=== PATIENT | female | born 1985 | race Caucasian/White ===

== ENCOUNTER 2016-11-29 08:25 | Emergency (ER) | payer BC ==
[2016-11-29 08:53] VITALS: BP 104/63
--- NOTE | 2016-11-29 08:56 | UC ---
Throat Pain/Nasal Jerson HPI - HPI Summary HPI Summary: 4 days hx of sore throat , nasal congestion + sinus pain and pressure , no fever, + cough - History of Current Complaint Chief Complaint: UCRespiratory Stated Complaint: SINUS SORE THROAT Time Seen by Provider: 11/29/16 08:49 Hx Obtained From: Patient Hx Last Menstrual Period: 11/08/16 ?: No Onset/Duration: Gradual Onset, Lasting Days - 4, Still Present Severity: Moderate Cough: Nonproductive Associated Signs & Symptoms: Positive: Sinus Discomfort, Nasal Discharge. Negative: Wheezing, Hoarseness, Fever, Rash - Allergies/Home Medications Allergies/Adverse Reactions: Allergies Allergy/AdvReac Type Severity Reaction Status Date / Time Bee Venom Allergy Pain, Verified 11/29/16 08:41 swelling, feeling weak Lactose Allergy Abdominal Verified 11/29/16 08:41 Pain Lactose Intolerance (GI) Allergy Abdominal Verified 11/29/16 08:41 Pain Penicillins Allergy Hives Verified 11/29/16 08:41 Home Medications: Home Medications [id number] [Mucinex Fast-Max Cold & S] 1 tab PO BID PRN [History Confirmed 11/29/16] PMH/Surg Hx/FS Hx/Imm Hx Previously Healthy: Yes Endocrine History Of: Denies: Diabetes, Thyroid Disease Cardiovascular History Of: Denies: Cardiac Disorders, Hypertension Respiratory History Of: Denies: COPD, Asthma GI/ History Of: Reports: Kidney Stones Denies: Ulcer - Surgical History Surgical History: Yes Surgery Procedure, Year, and Place: 2009. Veins removed from legs bilaterally. Essure permanant control procedure 2012 - Family History Known Family History: Positive: None, Cardiac Disease - Social History Alcohol Use: Occasionally Substance Use Type: None Smoking Status (MU): Former Smoker Type: Cigarettes Length of Time of Smoking/Using Tobacco: 2 Years Have You Smoked in the Last Year: No When Did the Patient Quit Smoking/Using Tobacco: 2004 - Immunization History Most Recent Influenza Vaccination: Not the Season Review of Systems Constitutional: Negative Skin: Negative Eyes: Negative ENT: Sore Throat, Nasal Discharge Respiratory: Cough Cardiovascular: Negative All Other Systems Reviewed And Are Negative: Yes Physical Exam Triage Information Reviewed: Yes Appearance: Well-Appearing, No Pain Distress, Well-Nourished Vital Signs: Initial Vital Signs Temp 98.1 F 11/29/16 08:45 Pulse 72 11/29/16 08:45 Resp 16 11/29/16 08:45 BP 104/63 11/29/16 08:45 Pulse Ox 100 11/29/16 08:45 Vital Signs Reviewed: Yes Eye Exam: Normal Eyes: Positive: Conjunctiva Clear ENT: Positive: Normal ENT inspection, Hearing grossly normal, Pharyngeal erythema, Nasal congestion, Nasal drainage, TMs normal Neck exam: Normal Neck: Positive: Supple, Nontender, No Lymphadenopathy Respiratory: Positive: Chest non-tender, Lungs clear, Normal breath sounds, No respiratory distress Cardiovascular Exam: Normal Cardiovascular: Positive: RRR, No Murmur, Pulses Normal Skin Exam: Normal Throat Pain/Nasal Course/Dx - Differential Dx/Diagnosis Provider Diagnoses: URI Discharge - Discharge Plan Condition: Stable Disposition: HOME Patient Education Materials: Upper Respiratory Infection (ED) Referrals: Qasim Bravo MD [Primary Care Provider] - If Needed Additional Instructions: viral illness cont. with rest, increase fluid, OTC nasal spray Flonase daily
== END 2016-11-29 08:58 | disposition home or self-care (01) ==
LOC: UCCORT 08:25
DX: J06.9 Acute upper respiratory infection, unspecified (principal); Z87.891 Personal history of nicotine dependence; Z88.0 Allergy status to penicillin
CPT/HCPCS: 99211; G0463

== ENCOUNTER 2017-01-13 09:15 | Emergency (ER) | payer BC ==
[2017-01-13 10:16] VITALS: BP 109/58
--- NOTE | 2017-01-13 10:26 | UC ---
Eye Complaint HPI - HPI Summary HPI Summary: Pt c/o bilateral eye redness, "crusty" eyes and c/o of waking this morning with "crusted eyes" this morning. - History of Current Complaint Chief Complaint: UCRespiratory Stated Complaint: BILATERAL EYE Time Seen by Provider: 01/13/17 10:02 Hx Last Menstrual Period: 12/27/16 ?: No Onset/Duration: Gradual Onset, Lasting Days Timing: Constant Severity Initially: Mild Severity Currently: Mild Location of Injury: Conjunctiva Character: Dull Aggravating Factor(s): Light Associated Signs And Symptoms: Positive: Photophobia, Drainage (Purulent) - Allergies/Home Medications Allergies/Adverse Reactions: Allergies Allergy/AdvReac Type Severity Reaction Status Date / Time Bee Venom Allergy Pain, Verified 01/13/17 10:08 swelling, feeling weak Lactose Allergy Abdominal Verified 01/13/17 10:08 Pain Lactose Intolerance (GI) Allergy Abdominal Verified 01/13/17 10:08 Pain Penicillins Allergy Hives Verified 01/13/17 10:08 Home Medications: Home Medications Dextromethorphan-Phenylephrine [Daytime Multi Symptom Col 10-5-325 mg] 2 cap PO ONCE PRN 01/13/17 [History Confirmed 01/13/17] PMH/Surg Hx/FS Hx/Imm Hx Previously Healthy: Yes Endocrine History Of: Denies: Diabetes, Thyroid Disease Cardiovascular History Of: Denies: Cardiac Disorders, Hypertension Respiratory History Of: Denies: COPD, Asthma GI/ History Of: Reports: Kidney Stones Denies: Ulcer - Surgical History Surgical History: Yes Surgery Procedure, Year, and Place: 2009. Veins removed from legs bilaterally. Essure permanant control procedure 2012 - Family History Known Family History: Positive: None, Cardiac Disease - Social History Alcohol Use: Occasionally Substance Use Type: None Smoking Status (MU): Former Smoker Type: Cigarettes Length of Time of Smoking/Using Tobacco: 2 Years Have You Smoked in the Last Year: No When Did the Patient Quit Smoking/Using Tobacco: 2004 - Immunization History Most Recent Influenza Vaccination: Not the Season Review of Systems Constitutional: Negative Skin: Negative Eyes: Drainage, Eye Redness, Photophobia ENT: Negative Respiratory: Negative Cardiovascular: Negative Gastrointestinal: Negative Genitourinary: Negative Motor: Negative Neurovascular: Negative Musculoskeletal: Negative Neurological: Negative Psychological: Negative All Other Systems Reviewed And Are Negative: Yes Physical Exam Triage Information Reviewed: Yes Appearance: Well-Appearing Vital Signs: Initial Vital Signs Temp 98.6 F 01/13/17 10:11 Pulse 65 01/13/17 10:11 Resp 16 01/13/17 10:11 BP 109/58 01/13/17 10:11 Pulse Ox 99 01/13/17 10:11 Vital Signs Reviewed: Yes Eyes: Positive: Conjunctiva Inflamed, Discharge - white Neck exam: Normal Respiratory Exam: Normal Cardiovascular Exam: Normal Musculoskeletal Exam: Normal Neurological Exam: Normal Psychological Exam: Normal Skin Exam: Normal Eye Complaint Course/Dx - Differential Dx/Diagnosis Differential Diagnosis/HQI/PQRI: Conjunctivitis Provider Diagnoses: conjunctivitis Discharge - Discharge Plan Condition: Stable Disposition: HOME Prescriptions: Polymyx/Trimethoprim OPTH* [Polytrim OPHTH*] 2 drop BOTH EYES Q3H #1 btl Patient Education Materials: Conjunctivitis (ED) Referrals: Qasim Bravo MD [Medical Doctor] - If Needed (Please follow up with your PCP or return to clinic as needed. )
== END 2017-01-13 10:42 | disposition home or self-care (01) ==
LOC: UCCORT 09:15
DX: H10.33 Unspecified acute conjunctivitis, bilateral (principal); Z88.0 Allergy status to penicillin; Z87.891 Personal history of nicotine dependence
CPT/HCPCS: 99212; G0463

== ENCOUNTER 2017-01-28 09:39 | Emergency (ER) | payer BC ==
[2017-01-28 10:13] VITALS: BP 105/57
--- NOTE | 2017-01-28 10:23 | UC ---
Bite Injury/Animal HPI - HPI Summary HPI Summary: complaint of tick embedded on her back that she noticed this morning tick there for less than 24 hours feels sore and has small rash around bite - History of Current Complaint Chief Complaint: UCSkin Stated Complaint: TICK Hx Obtained From: Patient Hx Last Menstrual Period: 01/28/17 - Allergies/Home Medications Allergies/Adverse Reactions: Allergies Allergy/AdvReac Type Severity Reaction Status Date / Time Bee Venom Allergy Pain, Verified 01/28/17 10:01 swelling, feeling weak Lactose Allergy Abdominal Verified 01/28/17 10:01 Pain Lactose Intolerance (GI) Allergy Abdominal Verified 01/28/17 10:01 Pain Penicillins Allergy Hives Verified 01/28/17 10:01 Home Medications: Home Medications Amitriptyline TAB* [Elavil TAB*] 25 mg PO BEDTIME 01/28/17 [History Confirmed ] PMH/Surg Hx/FS Hx/Imm Hx Previously Healthy: Yes Endocrine History Of: Denies: Diabetes, Thyroid Disease Cardiovascular History Of: Denies: Cardiac Disorders, Hypertension Respiratory History Of: Denies: COPD, Asthma GI/ History Of: Reports: Kidney Stones Denies: Ulcer - Surgical History Surgical History: Yes Surgery Procedure, Year, and Place: 2009. Veins removed from legs bilaterally. Essure permanant control procedure 2012 - Family History Known Family History: Positive: None, Cardiac Disease Negative: Hypertension, Diabetes - Social History Occupation: Employed Full-time Lives: With Family Alcohol Use: Occasionally Substance Use Type: None Smoking Status (MU): Former Smoker Type: Cigarettes Length of Time of Smoking/Using Tobacco: 2 Years Have You Smoked in the Last Year: No When Did the Patient Quit Smoking/Using Tobacco: 2004 - Immunization History Most Recent Influenza Vaccination: NONE Most Recent Tetanus Shot: UTD Most Recent Pneumonia Vaccination: N/A Review of Systems Constitutional: Negative Skin: Rash Eyes: Negative ENT: Negative Respiratory: Negative Cardiovascular: Negative Gastrointestinal: Negative Genitourinary: Negative Motor: Negative Neurovascular: Negative Musculoskeletal: Negative Neurological: Negative Psychological: Negative All Other Systems Reviewed And Are Negative: Yes Physical Exam Triage Information Reviewed: Yes Appearance: No Pain Distress, Well-Nourished Vital Signs: Initial Vital Signs Temp 97.9 F 01/28/17 10:03 Pulse 66 01/28/17 10:03 Resp 18 01/28/17 10:03 BP 105/57 01/28/17 10:03 Pulse Ox 100 01/28/17 10:03 Vital Signs Reviewed: Yes Eyes: Positive: Conjunctiva Clear ENT: Positive: Pharynx normal, TMs normal Neck: Positive: No Lymphadenopathy Respiratory: Positive: Lungs clear, Normal breath sounds, No respiratory distress Cardiovascular: Positive: RRR, No Murmur, Pulses Normal Abdomen Description: Positive: Nontender, Soft Bowel Sounds: Positive: Present Musculoskeletal: Positive: No Edema Neurological: Positive: Alert Psychological Exam: Normal Skin: Positive: Other - tick embedded in right side of upper back 1cm area of erythema surrounding tick Procedures - Procedure Summary Procedure Summary: tick removed with tick twister Bite Injury Course/Dx - Course Course Of Treatment: exam completed. tick removed'. refuses prophylaxis for treatment- tick there for less than 24 hours - Differential Dx/Diagnosis Provider Diagnoses: tick removal/bite Discharge - Discharge Plan Condition: Stable Disposition: HOME Patient Education Materials: Tick Bite (ED) Referrals: Orlin Weems MD [Primary Care Provider] - Additional Instructions: Please review your discharge instructions. If your symptoms do not improve please call your primary care provider or return to urgent care.
== END 2017-01-28 10:34 | disposition home or self-care (01) ==
LOC: UCCORT 09:39
DX: S20.461A Insect bite (nonvenomous) of right back wall of thorax, initial encounter (principal); W57.XXXA Bitten or stung by nonvenomous insect and other nonvenomous arthropods, initial encounter; Y93.9 Activity, unspecified; Y99.9 Unspecified external cause status; Z91.030 Bee allergy status; Z91.040 Latex allergy status; Z91.011 Allergy to milk products
CPT/HCPCS: 99212; G0463

== ENCOUNTER 2017-05-26 12:17 | Emergency (ER) | payer BC ==
[2017-05-26 12:49] VITALS: BP 106/65
--- NOTE | 2017-05-26 12:57 | UC ---
Complaint Female HPI - HPI Summary HPI Summary: Patient has had urinary frequency, dysuria and flank pain for the past 3 days, is taking azo - History Of Current Complaint Chief Complaint: UCGU Stated Complaint: URINARY COMPLAINT Time Seen by Provider: 05/26/17 12:52 Hx Obtained From: Patient Hx Last Menstrual Period: 05/24/17 ?: No Onset/Duration: Sudden Onset, Lasting Days Timing: Lasting Days Severity Initially: Mild Severity Currently: Moderate Character: Burning Aggravating Factor(s): Urination Associated Signs And Symptoms: Positive: Back Pain - Allergies/Home Medications Allergies/Adverse Reactions: Allergies Allergy/AdvReac Type Severity Reaction Status Date / Time Bee Venom Allergy Pain, Verified 05/26/17 12:50 swelling, feeling weak Lactose Allergy Abdominal Verified 05/26/17 12:50 Pain Lactose Intolerance (GI) Allergy Abdominal Verified 05/26/17 12:50 Pain Penicillins Allergy Hives Verified 05/26/17 12:50 PMH/Surg Hx/FS Hx/Imm Hx Previously Healthy: Yes - Surgical History Surgical History: Yes Surgery Procedure, Year, and Place: 2009. Veins removed from legs bilaterally. Essure permanant control procedure 2012. spinal nerve block 01/2017 - Family History Known Family History: Positive: None, Cardiac Disease Negative: Hypertension, Diabetes - Social History Alcohol Use: Occasionally Substance Use Type: None Smoking Status (MU): Former Smoker Type: Cigarettes Length of Time of Smoking/Using Tobacco: 2 Years Have You Smoked in the Last Year: No When Did the Patient Quit Smoking/Using Tobacco: 2004 - Immunization History Most Recent Influenza Vaccination: NONE Most Recent Tetanus Shot: UTD Most Recent Pneumonia Vaccination: N/A Review of Systems Constitutional: Negative Skin: Negative Eyes: Negative ENT: Negative Respiratory: Negative Cardiovascular: Negative Gastrointestinal: Abdominal Pain Genitourinary: Dysuria, Frequency, Urgency Motor: Negative Neurovascular: Negative Musculoskeletal: Negative Neurological: Negative Psychological: Negative All Other Systems Reviewed And Are Negative: Yes Physical Exam Triage Information Reviewed: Yes Appearance: Well-Nourished, Ill-Appearing, Pain Distress Vital Signs: Initial Vital Signs Temp 97.7 F 05/26/17 12:44 Pulse 70 05/26/17 12:44 Resp 14 05/26/17 12:44 BP 106/65 05/26/17 12:44 Pulse Ox 99 05/26/17 12:44 Vital Signs Reviewed: Yes Eye Exam: Normal ENT Exam: Normal Dental Exam: Normal Neck exam: Normal Respiratory Exam: Normal Cardiovascular Exam: Normal Cardiovascular: Positive: RRR, No Murmur, Pulses Normal Abdominal Exam: Normal Abdomen Description: Positive: Nontender, No Organomegaly, Soft, CVA Tenderness (R) - neg, CVA Tenderness (L) - pos Bowel Sounds: Positive: Present Musculoskeletal Exam: Normal Neurological Exam: Normal Psychological Exam: Normal Skin Exam: Normal Complaint Female Dx - Course Course Of Treatment: hx obtained, exam performed ,meds reviewed, urine culture sent, treated for UTI - Differential Dx/Diagnosis Differential Diagnosis/HQI/PQRI: Sexually Transmitted Disease, Ureteral Stone, Urinary Tract Infection Provider Diagnoses: Dysuria. flank pain Discharge - Discharge Plan Condition: Stable Disposition: HOME Prescriptions: Ciprofloxacin TAB* [Cipro 500 MG TAB*] 500 mg PO BID #14 tab Patient Education Materials: Urinary Tract Infection in Women (ED) Referrals: Orlin Weems MD [Primary Care Provider] - Additional Instructions: 1. take the medication as prescribed, get 2 doses in today 2. Increase fluid intake, 3. If no improvment in the next 24- 48 hours follow up with your PCP or at the ER
== END 2017-05-26 13:06 | disposition home or self-care (01) ==
LOC: UCCORT 12:17
DX: R30.0 Dysuria (principal); R35.0 Frequency of micturition; M54.5 Low back pain; Z88.0 Allergy status to penicillin; Z91.030 Bee allergy status; Z87.891 Personal history of nicotine dependence
CPT/HCPCS: 87077; 87086; 99212; G0463

== ENCOUNTER → 2017-07-13 20:54 | Emergency (ER) | payer BC ==
[~2017-07-13 20:54] MED LIST: Ketorolac INJ* 60 MG/2 ML VIAL ONE; Sulfamethox/Trimethoprim DS 800/160* TAB ONE
[2017-07-14 15:20] LABS: Manual Entry Verification HAN0055; UR Preg Internal Control QC Line Present
[2017-07-14 15:42] LABS: Urine Bacteria Absent (Absent)
--- NOTE | 2017-07-15 07:29 | UC ---
Progress - Progress Note Progress Note: PLEASE CALL [facility] AND SEE HOW THEY ARE DOING. HCG (-). U/A HAS WBC. IF WORSE F/ U PCP OR WE CAN CALL IN ABX.
== END | disposition home or self-care (01) ==
LOC: UCCORT 20:54
DX: N39.0 Urinary tract infection, site not specified (principal); Z32.02 Encounter for pregnancy test, result negative
CPT/HCPCS: 81003; 81015; 81025; 84702; A9270-GY; J1885

== ENCOUNTER 2017-11-26 11:39 | Emergency (ER) | payer BC ==
[2017-11-26 12:50] VITALS: BP 101/59
--- NOTE | 2017-11-26 13:10 | UC ---
Skin Complaint HPI - HPI Summary HPI Summary: PT IS C/O A RASH SINCE YESTERDAY. SHE DESCRIBES IT RED AND ITCHY. IT STARTED UNDER HER CHIN THEN SPREAD TO BODY. IT WAS WORSE AFTER SHOWERING. 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 NO COUGH, SOB OR WHEEZING. NOTES MILD NAUSEA. NO NEW FOOD, SOAP, MEDICATIONS. NO ILLNESS(ACUTE). SPRAY RIVAS YESTERDAY BUT HAS DONE THE SAME FOR YEARS. - History of Current Complaint Chief Complaint: UCRash Time Seen by Provider: 11/26/17 12:52 Stated Complaint: SKIN COMPLAINT/NAUSEA Hx Obtained From: Patient Hx Last Menstrual Period: 11/12/17 ?: No Onset/Duration: Gradual Onset Timing: Constant Current Severity: Mild Pain Intensity: 0 Location: Diffuse Character: Swelling, Pruritus, Redness Aggravating Factor(s): Showering Alleviating Factor(s): Antihistamines Associated Signs & Symptoms: Positive: Nausea. Negative: Vomiting, Fever, Cough , Wheezing, Chest Pain - Allergy/Home Medications Allergies/Adverse Reactions: Allergies Allergy/AdvReac Type Severity Reaction Status Date / Time MS Bee Venom [Bee Venom] Allergy Pain, Verified 11/26/17 12:41 swelling, feeling weak MS Lactose [Lactose] Allergy Abdominal Verified 11/26/17 12:41 Pain MS Lactose Intolerance (GI) Allergy Abdominal Verified 11/26/17 12:41 [Lactose Intolerance (GI)] Pain MS Penicillins [Penicillins] Allergy Hives Verified 11/26/17 12:41 Home Medications: Home Medications Biotin 1 mg PO DAILY 11/26/17 [History Confirmed 11/26/17] diPHENhydraMINE PO* [Benadryl PO 25 MG TAB*] 50 mg PO Q6H PRN 11/26/17 [History Confirmed 11/26/17] Review of Systems Constitutional: Negative Skin: Rash Eyes: Negative ENT: Negative Respiratory: Negative Cardiovascular: Negative Gastrointestinal: Negative Genitourinary: Negative Motor: Negative Neurovascular: Negative Musculoskeletal: Negative Neurological: Negative Psychological: Negative Is Patient Immunocompromised?: No All Other Systems Reviewed And Are Negative: Yes PMH/Surg Hx/FS Hx/Imm Hx - Additional Past Medical History Additional PMH: IBS, plus per triage GI/ History: Gastroesophageal Reflux - Surgical History Surgical History: Yes Surgery Procedure, Year, and Place: 2009. Veins removed from legs bilaterally. Essure permanant control procedure 2012. spinal nerve block 01/2017 - Family History Known Family History: Positive: None, Cardiac Disease Negative: Hypertension, Diabetes - Social History Occupation: Employed Full-time Lives: With Family Alcohol Use: Occasionally Substance Use Type: None Smoking Status (MU): Former Smoker Type: Cigarettes Length of Time of Smoking/Using Tobacco: 2 Years Have You Smoked in the Last Year: No When Did the Patient Quit Smoking/Using Tobacco: 2004 - Immunization History Most Recent Influenza Vaccination: NONE Most Recent Tetanus Shot: UTD Most Recent Pneumonia Vaccination: N/A Vaccination Up to Date: Yes Physical Exam Triage Information Reviewed: Yes Appearance: Well-Appearing Vital Signs: Initial Vital Signs Temp 98.9 F 11/26/17 12:43 Pulse 60 11/26/17 12:43 Resp 20 11/26/17 12:43 BP 101/59 11/26/17 12:43 Pulse Ox 100 11/26/17 12:43 Vital Signs Reviewed: Yes Eyes: Positive: Conjunctiva Clear ENT: Positive: Pharynx normal, TMs normal, Uvula midline. Negative: Nasal congestion Neck: Positive: Supple, Nontender, No Lymphadenopathy Respiratory: Positive: Lungs clear, Normal breath sounds, No respiratory distress Cardiovascular: Positive: RRR, No Murmur Abdomen Description: Positive: Nontender, No Organomegaly, Soft Bowel Sounds: Positive: Present Skin: Positive: Other - faint pink rash cheeks and arms. not petechial, blistering or scaly and does lynne. rest of inspection reveals rash mostly resolved post benadryl. Course/Dx - Course Course Of Treatment: rash is not petechial, blistering, scaly and it does lynne and improved with benadryl thus most c/w hives. will tx benadryl and prednisone plus close f/u. - Diagnoses Provider Diagnoses: Rash. Probable hives Discharge - Discharge Plan Condition: Stable Disposition: HOME Prescriptions: predniSONE [Prednisone] 40 mg PO DAILY 3 Days #6 tablet Patient Education Materials: Urticaria (ED), Acute Rash (ED) Forms: *Work Release Referrals: Orlin Weems MD [Primary Care Provider] - 3 Days Additional Instructions: TAKE OVER THE COUNTER BENADRYL PER LABEL NEEDED
== END 2017-11-26 13:14 | disposition home or self-care (01) ==
LOC: UCCORT 11:39
DX: R21 Rash and other nonspecific skin eruption (principal); Z87.891 Personal history of nicotine dependence
CPT/HCPCS: 99212; G0463

== ENCOUNTER 2017-12-13 17:39 | Emergency (ER) | payer BC ==
[2017-12-13 17:53] VITALS: BP 114/67
--- NOTE | 2017-12-13 18:13 | UC ---
Complaint Female HPI - HPI Summary HPI Summary: Pt c/o freuqeuncy, urgency and dysuria that began 1 week ago. Pt also c/o left side flank pain . Pt has history of pyelonephritis and frequent UTI's - History Of Current Complaint Chief Complaint: UCGU Stated Complaint: URINARY AND BACK PAIN Time Seen by Provider: 12/13/17 17:48 Hx Obtained From: Patient Hx Last Menstrual Period: 12/06/17 ?: No Onset/Duration: Sudden Onset, Lasting Days, Still Present, Worse Since - onset Timing: Constant Severity Initially: Mild Severity Currently: Moderate Pain Intensity: 4 Character: Dull, Burning Aggravating Factor(s): Urination Alleviating Factor(s): Nothing Associated Signs And Symptoms: Positive: Back Pain - Risk Factors Ectopic Risk Factor: Negative - Allergies/Home Medications Allergies/Adverse Reactions: Allergies Allergy/AdvReac Type Severity Reaction Status Date / Time bee venom protein (honey bee) Allergy Hives/Diff. Verified 12/13/17 17:50 Breathing/I tching lactose Allergy GI Upset Verified 12/13/17 17:50 Penicillins Allergy Abdominal Verified 12/13/17 17:50 Pain blackberry Allergy Hives Uncoded 12/13/17 17:50 PMH/Surg Hx/FS Hx/Imm Hx Previously Healthy: Yes GI/ History: Kidney Stones - Surgical History Surgical History: Yes Surgery Procedure, Year, and Place: 2009. Veins removed from legs bilaterally. Essure permanant control procedure 2012. spinal nerve block 01/2017 - Family History Known Family History: Positive: None, Cardiac Disease Negative: Hypertension, Diabetes - Social History Occupation: Employed Full-time Lives: With Family Alcohol Use: Occasionally Substance Use Type: None Smoking Status (MU): Former Smoker Type: Cigarettes Length of Time of Smoking/Using Tobacco: 2 Years Have You Smoked in the Last Year: No When Did the Patient Quit Smoking/Using Tobacco: 2004 - Immunization History Most Recent Influenza Vaccination: NONE Most Recent Tetanus Shot: UTD Most Recent Pneumonia Vaccination: N/A Vaccination Up to Date: Yes Review of Systems Constitutional: Fatigue Skin: Negative Eyes: Negative ENT: Negative Respiratory: Negative Cardiovascular: Negative Gastrointestinal: Abdominal Pain Genitourinary: Dysuria, Frequency, Urgency Motor: Negative Neurovascular: Negative Musculoskeletal: Negative Neurological: Negative Psychological: Negative Is Patient Immunocompromised?: No All Other Systems Reviewed And Are Negative: Yes Physical Exam Triage Information Reviewed: Yes Appearance: Well-Appearing Vital Signs: Initial Vital Signs Temp 98 F 12/13/17 17:47 Pulse 60 12/13/17 17:47 Resp 16 12/13/17 17:47 BP 114/67 12/13/17 17:47 Pulse Ox 100 12/13/17 17:47 Vital Signs Reviewed: Yes Eye Exam: Normal ENT Exam: Normal Neck exam: Normal Respiratory Exam: Normal Abdomen Description: Positive: CVA Tenderness (L) Musculoskeletal Exam: Normal Neurological Exam: Normal Psychological Exam: Normal Skin Exam: Normal Complaint Female Dx - Differential Dx/Diagnosis Differential Diagnosis/HQI/PQRI: Urinary Tract Infection, Other - kidney stone Provider Diagnoses: UTI Discharge - Discharge Plan Condition: Stable Disposition: HOME Prescriptions: Sulfamethox/Trimethoprim DS* [Bactrim DS 800/160 TAB*] 1 tab PO Q12H #10 tab Patient Education Materials: Urinary Tract Infection in Women (ED) Referrals: Kyle Fam MD [Medical Doctor] - Orlin Weems MD [Primary Care Provider] - If Needed
== END 2017-12-13 18:21 | disposition home or self-care (01) ==
LOC: UCCORT 17:39
DX: N39.0 Urinary tract infection, site not specified (principal); Z91.030 Bee allergy status; Z91.011 Allergy to milk products; Z88.0 Allergy status to penicillin; Z91.018 Allergy to other foods; Z87.891 Personal history of nicotine dependence
CPT/HCPCS: 81003; 87086; 99212; G0463

== ENCOUNTER 2018-04-07 09:37 | Emergency (ER) | payer BC ==
[2018-04-07 10:25] VITALS: BP 95/48
--- NOTE | 2018-04-07 10:36 | UC ---
Throat Pain/Nasal Jerson HPI - HPI Summary HPI Summary: Patient to the urgent care today with chief complaint of subjective fever, sore throat body aches. Began last night about 11:30 she just flown in from [facility] none of the other children or her partner are sick. - History of Current Complaint Chief Complaint: UCRespiratory Stated Complaint: FEVER/AUGUSTINE/ST Time Seen by Provider: 04/07/18 10:15 Hx Obtained From: Patient Hx Last Menstrual Period: 03/22/18 ?: No Onset/Duration: Sudden Onset, Lasting Hours - 12 Pain Intensity: 7 Pain Scale Used: 0-10 Numeric Cough: None Associated Signs & Symptoms: Positive: Sinus Discomfort, Fever - Allergies/Home Medications Allergies/Adverse Reactions: Allergies Allergy/AdvReac Type Severity Reaction Status Date / Time bee venom protein (honey bee) Allergy Hives/Diff. Verified 04/07/18 10:18 Breathing/I tching lactose Allergy GI Upset Verified 04/07/18 10:18 Penicillins Allergy Hives Verified 04/07/18 10:18 blackberry Allergy Hives Uncoded 04/07/18 10:18 Home Medications: Home Medications Ibuprofen TAB* [Advil TAB*] 800 mg PO Q6H PRN 04/07/18 [History Confirmed ] PMH/Surg Hx/FS Hx/Imm Hx Previously Healthy: Yes GI/ History: Gastroesophageal Reflux - Surgical History Surgical History: Yes Surgery Procedure, Year, and Place: 2009. Veins removed from legs bilaterally. Essure permanant control procedure 2012. spinal nerve block 01/2017 - Family History Known Family History: Positive: None, Cardiac Disease Negative: Hypertension, Diabetes - Social History Occupation: Employed Full-time Lives: With Family Alcohol Use: Occasionally Substance Use Type: None Smoking Status (MU): Former Smoker Type: Cigarettes Length of Time of Smoking/Using Tobacco: 2 Years Have You Smoked in the Last Year: No When Did the Patient Quit Smoking/Using Tobacco: 2004 - Immunization History Most Recent Influenza Vaccination: NONE Most Recent Tetanus Shot: UTD Most Recent Pneumonia Vaccination: N/A Vaccination Up to Date: Yes Review of Systems Constitutional: Fever, Chills, Fatigue Skin: Negative Eyes: Negative ENT: Sore Throat, Sinus Congestion, Sinus Pain/Tenderness Respiratory: Negative Cardiovascular: Negative Gastrointestinal: Negative Genitourinary: Negative Motor: Negative Neurovascular: Negative Musculoskeletal: Negative Neurological: Negative Psychological: Negative Is Patient Immunocompromised?: No All Other Systems Reviewed And Are Negative: Yes Physical Exam Triage Information Reviewed: Yes Appearance: Well-Nourished, Ill-Appearing - mild, Pain Distress - mild Vital Signs: Initial Vital Signs Temp 98.5 F 04/07/18 10:20 Pulse 73 04/07/18 10:20 Resp 15 04/07/18 10:20 BP 95/48 04/07/18 10:20 Pulse Ox 100 04/07/18 10:20 Vital Signs Reviewed: Yes Eye Exam: Normal Eyes: Positive: Conjunctiva Clear ENT Exam: Normal ENT: Positive: Normal ENT inspection, Hearing grossly normal, Pharyngeal erythema, Nasal congestion, TMs normal, Sinus tenderness - mild, Uvula midline. Negative: Tonsillar swelling, Tonsillar exudate, Trismus, Muffled voice, Hoarse voice, Dental tenderness Dental Exam: Normal Neck exam: Normal Neck: Positive: Supple, Nontender, No Lymphadenopathy Respiratory Exam: Normal Respiratory: Positive: Chest non-tender, Lungs clear, Normal breath sounds, No respiratory distress, No accessory muscle use Cardiovascular Exam: Normal Cardiovascular: Positive: RRR, No Murmur, Pulses Normal Musculoskeletal Exam: Normal Musculoskeletal: Positive: Strength Intact, ROM Intact, No Edema Neurological Exam: Normal Neurological: Positive: Alert, Muscle Tone Normal Psychological Exam: Normal Skin Exam: Normal Diagnostics - Laboratory Diagnostic Studies Completed/Ordered: rst (-) Throat Pain/Nasal Course/Dx - Course Assessment/Plan: tulenol, ibuprofen increase fluids follow with pcp prn - Differential Dx/Diagnosis Provider Diagnoses: viral illness Discharge - Sign-Out/Discharge Documenting (check all that apply): Discharge/Admit/Transfer - Discharge Plan Condition: Stable Disposition: HOME Patient Education Materials: Pharyngitis (ED), Fever in Adults (ED), Viral Syndrome (ED) Forms: *Work Release Referrals: Daija Campos PA [Physician Application Support] - 2 Days - Billing Disposition and Condition Condition: STABLE Disposition: Home
== END 2018-04-07 10:54 | disposition home or self-care (01) ==
LOC: UCCORT 09:37
DX: B34.9 Viral infection, unspecified (principal); Z88.0 Allergy status to penicillin; J02.9 Acute pharyngitis, unspecified; R52 Pain, unspecified; Z91.018 Allergy to other foods; Z91.011 Allergy to milk products; Z91.030 Bee allergy status; Z87.891 Personal history of nicotine dependence
CPT/HCPCS: 87651; 99211; G0463

== ENCOUNTER 2018-04-09 09:05 | Emergency (ER) | payer BC ==
[2018-04-09 09:31] VITALS: BP 124/59
--- NOTE | 2018-04-09 10:35 | UC ---
Throat Pain/Nasal Jerson HPI - HPI Summary HPI Summary: seen on 04/07 with 12 hour hx of sore throat and fever, rapid strep negative. Since then, has had progressive sore throat and dysphagia, decreased oral intake , malaise and fever. - History of Current Complaint Chief Complaint: UCGeneralIllness Stated Complaint: ST,FEVER Time Seen by Provider: 04/09/18 09:41 Hx Obtained From: Patient Hx Last Menstrual Period: 03/22/18 Onset/Duration: Sudden Onset, Lasting Days - 4 Severity: Moderate Pain Intensity: 10 Cough: None Associated Signs & Symptoms: Positive: Dysphagia, Fever - Epiglottits Risk Factors Epiglottis Risk Factors: Negative - Allergies/Home Medications Allergies/Adverse Reactions: Allergies Allergy/AdvReac Type Severity Reaction Status Date / Time bee venom protein (honey bee) Allergy Hives/Diff. Verified 04/09/18 09:31 Breathing/I tching lactose Allergy GI Upset Verified 04/09/18 09:31 Penicillins Allergy Hives Verified 04/09/18 09:31 blackberry Allergy Hives Uncoded 04/09/18 09:31 PMH/Surg Hx/FS Hx/Imm Hx Previously Healthy: Yes - Surgical History Surgical History: Yes Surgery Procedure, Year, and Place: 2009. Veins removed from legs bilaterally. Essure permanant control procedure 2012. spinal nerve block 01/2017 - Family History Known Family History: Positive: None, Cardiac Disease Negative: Hypertension, Diabetes - Social History Occupation: Employed Full-time - [employer] Alcohol Use: Occasionally Substance Use Type: None Smoking Status (MU): Former Smoker Type: Cigarettes Length of Time of Smoking/Using Tobacco: 2 Years Have You Smoked in the Last Year: No When Did the Patient Quit Smoking/Using Tobacco: 2004 - Immunization History Most Recent Influenza Vaccination: NONE Most Recent Tetanus Shot: UTD Most Recent Pneumonia Vaccination: N/A Vaccination Up to Date: Yes Review of Systems Constitutional: Fever, Fatigue Skin: Negative Eyes: Negative ENT: Sore Throat, Ear Ache Respiratory: Negative Cardiovascular: Negative Gastrointestinal: Negative Genitourinary: Negative Motor: Negative Neurovascular: Negative Musculoskeletal: Negative Neurological: Headache Psychological: Negative Is Patient Immunocompromised?: No All Other Systems Reviewed And Are Negative: Yes Physical Exam Triage Information Reviewed: Yes Appearance: Ill-Appearing - looks unwell, Pain Distress - uncomfortable Vital Signs: Initial Vital Signs Temp 100.3 F 04/09/18 09:26 Pulse 96 04/09/18 09:26 Resp 18 04/09/18 09:26 BP 124/59 04/09/18 09:26 Pulse Ox 100 04/09/18 09:26 Vital Signs Reviewed: Yes Eyes: Positive: Conjunctiva Clear ENT: Positive: Pharyngeal erythema, TMs normal, Tonsillar swelling, Tonsillar exudate - right tonsillar coated with thick purulent exudate. No evidence of abscess., Uvula midline, Other - no trismus Neck: Positive: Enlarged Nodes @ - tonsillar. No occipital, posterior cervical Respiratory: Positive: Lungs clear, Normal breath sounds Cardiovascular: Positive: RRR, No Murmur Abdomen Description: Positive: Nontender, No Organomegaly, Soft Musculoskeletal Exam: Normal Neurological Exam: Normal Neurological: Positive: Alert Psychological Exam: Normal Skin Exam: Normal Diagnostics - Laboratory Diagnostic Studies Completed/Ordered: rapid strep negative; full culture sent. Throat Pain/Nasal Course/Dx - Course Course Of Treatment: clindamycin for exudative tonsillitis. - Differential Dx/Diagnosis Differential Diagnosis/HQI/PQRI: Mononucleosis, Pharyngitis, Tonsillitis Provider Diagnoses: exudative tonsillitis Discharge - Sign-Out/Discharge Documenting (check all that apply): Discharge/Admit/Transfer - Discharge Plan Condition: Stable Disposition: HOME Prescriptions: Clindamycin Cap(NF) [Clindamycin Cap 300 mg Cap(NF)] 300 mg PO QID #28 cap Referrals: Daija Campos PA [Primary Care Provider] - - Billing Disposition and Condition Condition: STABLE Disposition: Home
[2018-04-09] MEDS ORDERED: predniSONE TAB* 20 MG PO ONE (10:48)
== END 2018-04-09 11:02 | disposition home or self-care (01) ==
LOC: UCCORT 09:05
DX: J03.90 Acute tonsillitis, unspecified (principal); Z88.0 Allergy status to penicillin; Z87.891 Personal history of nicotine dependence
CPT/HCPCS: 87070; 87651; 96372; 99212; G0463; J7512

== ENCOUNTER 2019-03-06 12:15 | Emergency (ER) | payer BC ==
--- OUTSIDE RECORDS SUMMARY | 2019-03-06 13:56 | XMS REPORT | Continuity of Care Document ---
:1985 External Reference #:[id number] Author Name Qasim Bravo M.D. Address [address] [facility] [address] [place] [address] Care Team Providers Name Role Phone HCP given Primary Care Physician Unavailable Payers Date Identification Numbers Payment Provider Subscriber Effective: Policy Number: [id number] Talat Ramon Marinelli 2012 Ind/Ppo/Hmo/Pos PayID: [id number] [address] [address] [place] [address] Problems Active Problems Provider Date Herpes simplex without complication Orlin Weems M.D. 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, 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 Hand Dominance Right-handed Tobacco Use Start: Unknown Tobacco Of Any Kind Denies Use ETOH Use Rarely consumes alcohol Tobacco Use Start: Unknown Patient has never smoked Smoking Status Reviewed: 05/22/18 Patient has never smoked Exercise Type/Frequency Exercises regularly Sun Exposure Uses sunscreen Seat Belt/Car Seat always uses seat belt Guns in Home Yes, Locked Up Smoke Alarms Yes smoke alarm Currently Active Patient is currently sexually active Contraceptive Methods 06/2013 Tubal Blockage Procedure Age 1st [place] 17 Years Old Allergies, Adverse Reactions, Alerts Active Allergies Reaction Severity Comments Date Penicillins hives 09/20/2011 Bee Sting hives 12/08/2015 Inactive Allergies NKDA 08/27/2011 Medications Active Medications SIG Qnty Indications Ordering Date Provider Biotin 2000mcg daily Unknown 02/09/2019 Valacyclovir HCL 2 tabs by mouth x 7 90tabs B00.9 Cheo Linn, 2017 days to treat cold D.O. 500mg Tablets sore outbreak, 1 tab po qd for suppression of cold sores Epipen 2-Louis administer 0.3 2units Z91.030 Silcotroy, 04/07/2013 milliliters Cordell Tripp 0.3mg/0.3ML intramuscularly one Solution time (dispense 2-louis Auto-Inject for each location, e.g. home/carry/other) may repeat one T78.40xA Lysine daily for prevention B00.9 Orlin Weems, 09/18/2011 1000mg Tablets cold sore MJudi Vitamin D take 2 tablets by mouth otc Unknown 400Unit once a day Tablets History Medications Cephalexin 1 tab by mouth 30tabs T22.012A Shelly, 01/01/2019 - 500mg 3x/day x10 days Cordell Tripp 02/09/2019 Tablets Ibuprofen 1 by mouth three Silcoff, 12/01/2018 - 600mg times daily for Cordell Tripp 02/09/2019 Tablets pain. Ibuprofen as needed Unknown 09/01/2018 - 200mg 12/01/2018 Tablets Metronidazole 1 applicatorful 70gm N76.0 Sil[place]roy, 07/23/2017 - 0.75% every night at Cordell Tripp 07/28/2017 Gel bedtime x 5 days Ciprofloxacin HCL 1 twice a day x 5 10tabs R30.0 [place]roy, 07/23/2017 - days for uti Cordell Tripp 07/28/2017 250mg Tablets Omeprazole Take 1 Capsule by Unknown 06/18/2017 - 40mg mouth daily 11/30/[address] Guajardo K58.1 Indiana Stewart, 01/31/2017 - 72mcg PA 05/21/2018 Capsules Diclofenac Sodium apply to affected Unknown 12/26/2016 - 1% area qid/prn 01/30/2017 Gel Imitrex take 1 tablet by 14tabs G43.109 [facility], 12/08/2015 - 50mg Tablets mouth one time for Aziza Grider 01/31/2017 migraine headache may repeat in 2 hours max 3x/week Magnesium Oxide 2 at night for 180tabs G43.109 [facility], 12/08/2015 - prevention of Aziza Grider 07/22/2017 400(240Mg) mg headaches. Tablets Fish Oil 1 po daily Unknown 12/07/2015 - 1000mg 01/30/2017 Capsules Linzess 1 po daily Unknown 11/18/2015 - 145mcg 01/30/2017 Capsules Miralax give 17gm in 8 Unknown 12/20/2014 - 3350NF Powder ounces of water by 12/07/2015 mouth tid then bid per Ciprofloxacin HCL 1 by mouth twice a 6tabs 595.0 Shelly, 09/08/2014 - day for 3 days Cordell Tripp 10/15/2014 500mg Tablets Ciprofloxacin HCL 1 tab twice a day 14tabs 595.0 Temitope, 09/03/2014 - for 7 days Aziza Grider 09/08/2014 250mg Tablets Mupirocin apply twice a day 22gm 704.8 [facility], 06/03/2014 - 2% Ointment Aziza Grider 07/04/2014 Fluticasone 2 sprays to both 1bottle 461.0 Shelly, 09/18/2013 - Propionate nostrils once daily Cordell Tripp 06/02/2014 50mcg/Act Suspension Clarithromycin 1 tab bid x 10 days 20tabs 461.0 Shelly, 09/18/2013 - 500mg Cordell Tripp 06/02/2014 Tablets Omeprazole [address] Nunes 07/14/2013 - 40mg Lilli 01/30/[address] Federico Bravo, 06/09/2013 - Chewtabs Cordell Tripp 09/18/2013 Prednisone TK 2 TS bid For 3 Unknown 04/07/2013 - 10mg Days 1 bid For 3 06/09/2013 Tablets Days 1 qd For 3 Days Then 1 T qod Nuvaring inserted pv, leave 3units Unknown 01/13/[address] for 3 06/09/2013 0.12-0.015mg/24HR consecutive weeks, Ring then remove for 1 wk Famciclovir 3 Tabs By Mouth AT 18tabs B00.9 Temitope, 09/18/2012 - 500mg The First Sign Of Scarlet Grider D.O. 05/22/2018 Tablets Cold Sore Sulfamethoxazole/Tri 1 po bid 20tabs 461.0 Orlin Cordero 09/18/2012 - methoprim KATE Weems M.D. 09/28/2012 800-160mg Tablets Macrobid 1 po bid x 7 days 14caps Unknown 09/16/2012 - 100mg 01/06/2013 Capsules Nexium 1 po qd for acid 30caps 530.81 Silcotroy, 08/24/2011 - 40mg Capsules reflux Cordell Tripp 09/16/2012 Amitriptyline HCL 1 by mouth before 100tabs Unknown 08/23/2011 - bed to start; inc 11/30/2018 10mg Tablets by 1 pill every week as needed to a max of 5 pills/night; for sleep, foot pain Zantac 150 Maximum using otc as Shelly, 08/10/2011 - Strength camila Tripp M.D. 08/13/2011 150mg Tablets Zantac 1 po bid 530.81 Kellecotroy, 08/10/2011 - 150mg Tablets Cordell Tripp 06/09/2013 Calcium 1 po twice weekly Unknown - 500mg Tablets 01/30/2017 Vitamin B12 1 po daily otc Unknown - 100mcg 01/30/2017 Tablets Probiotic 1 po daily OTC Unknown - Capsules 12/07/2015 Immunizations CPT Code Status Date Vaccine Lot # [id number] Given 08/07/2017 Influenza Virus Vaccine, Quadrivalent, Split, [id number] Preservative Free [id number] Given 04/15/2013 Adacel or Boostrix, TDaP [id number] Vital Signs Date Vital Result Comment 02/10/2019 2:19pm BP Systolic 102 mmHg BP Diastolic 68 mmHg Height 67.25 inches 5'7.25" Weight 191.00 lb BMI (Body Mass Index) 29.7 kg/m2 01/01/2019 3:04pm BP Systolic 102 mmHg BP Diastolic 70 mmHg Weight 190.00 lb w/shoes 12/01/2018 9:25am BP Systolic 110 mmHg BP Diastolic 68 mmHg Weight 190.00 lb with boots 05/22/2018 3:22pm BP Systolic 110 mmHg BP Diastolic 68 mmHg Height 67.5 inches 5'7.50" with sandals Weight 191.00 lb with sandals BMI (Body Mass Index) 29.5 kg/m2 08/07/2017 4:02pm BP Systolic 100 mmHg BP Diastolic 68 mmHg 07/23/2017 9:09am BP Systolic 106 mmHg BP Diastolic 64 mmHg Body Temperature 97.8 F Weight 189.00 lb w/boots 01/31/2017 10:05am BP Systolic 98 mmHg BP Diastolic 62 mmHg Height 67 inches 5'7" Weight 188.00 lb BMI (Body Mass Index) 29.4 kg/m2 12/08/2015 10:27am BP Systolic 110 mmHg BP Diastolic 60 mmHg Height 67 inches 5'7" Weight 180.00 lb BMI (Body Mass Index) 28.2 kg/m2 Last Menstrual Period [id number] 09/03/2014 11:24am BP Systolic 118 mmHg BP Diastolic 60 mmHg Body Temperature 97.4 F Height 67 inches 5'7" Weight 188.00 lb BMI (Body Mass Index) 29.4 kg/m2 06/03/2014 2:48pm BP Systolic 104 mmHg BP Diastolic 62 mmHg Body Temperature 97.7 F Weight 182.00 lb 09/18/2013 11:03am BP Systolic 106 mmHg BP Diastolic 62 mmHg Heart Rate 50 /min Body Temperature 97.7 F Weight 166.00 lb per pt 06/22/2013 11:58am BP Systolic 109 mmHg BP Diastolic 51 mmHg Heart Rate 76 /min Body Temperature 98.7 F Weight 173.00 lb 04/15/2013 1:51pm BP Systolic 119 mmHg BP Diastolic 69 mmHg Heart Rate 64 /min Height 67.50 inches 5'7.50" Weight 169.00 lb BMI (Body Mass Index) 26.1 kg/m2 01/29/2013 1:55pm BP Systolic 100 mmHg BP Diastolic 58 mmHg Heart Rate 80 /min Respiratory Rate 16 /min Body Temperature 97.6 F Weight 170.00 lb 09/18/2012 8:58am BP Systolic 100 mmHg BP Diastolic 62 mmHg Body Temperature 98.0 F Height 67 inches 5'7" Weight 170.00 lb BMI (Body Mass Index) 26.6 kg/m2 Last Menstrual Period 0 08/27/2011 10:56am BP Systolic 95 mmHg BP Diastolic 45 mmHg Heart Rate 68 /min Weight 175.00 lb 08/13/2011 9:49am BP Systolic 110 mmHg BP Diastolic 50 mmHg Height 67 inches 5'7" Weight 178.00 lb BMI (Body Mass Index) 27.9 kg/m2 Last Menstrual Period 0 Results Test Date Facility Test Result H/L Range Note Fractionated Estrogens 02/19/2019 [facility] Estrone (E1) 98 pg/mL 5 [phone] Estradiol (E2) 131 pg/mL 2 CBC Auto Diff 02/10/2019 [facility] White Blood Count 5.0 10^3/uL N 3.5-10.8 3 [phone] Red Blood Count 3.93 10^6/uL N 3.70-4.87 Hemoglobin 13.3 g/dL N 12.0-16.0 Hematocrit 39 % N 35-47 Mean Corpuscular Volume 98 fL High 80-97 Mean Corpuscular Hemoglobin 34 pg High 27-31 Mean Corpuscular HGB Conc 34 g/dL N 31-36 Red Cell Distribution Width 12 % N 10.5-15 Platelet Count 296 10^3/uL N 150-450 Mean Platelet Volume 8.1 fL N 7.4-10.4 Abs Neutrophils 2.9 10^3/uL N 1.5-7.7 Abs Lymphocytes 1.4 10^3/uL N 1.0-4.8 Abs Monocytes 0.4 10^3/uL N 0-0.8 Abs Eosinophils 0.1 10^3/uL N 0-0.6 Abs Basophils 0.1 10^3/uL N 0-0.2 Abs Nucleated RBC 0.0 10^3/uL Granulocyte % 59.0 % Lymphocyte % 28.1 % Monocyte % 8.7 % Eosinophil % 3.0 % Basophil % 1.2 % Nucleated Red Blood Cells % 0.0 Laboratory test finding 02/10/2019 [facility] Cortisol 6.19 g/dL 4 [phone] Erythrocyte Sed Rate 2 mm/Hr N 0-19 TSH (Thyroid Stim Horm) 1.19 mcIU/mL N 0.34-5.60 Vitamin B12 268 pg/mL N 180-914 5 FSH (Follicle Stim Hormone) 5.1 mIU/mL 6 LH (Lutenizing Hormone) 7.9 mIU/mL 7 Comp Metabolic Panel 02/10/2019 [facility] Sodium 141 mmol/L N 135- 145 [phone] Potassium 4.6 mmol/L N 3.5-5.0 Chloride 106 mmol/L N 101-111 Co2 Carbon Dioxide 25 mmol/L N 22-32 Anion Gap 10 mmol/L N 2-11 Glucose 87 mg/dL N 70-100 Blood Urea Nitrogen 15 mg/dL N 6-24 Creatinine 0.70 mg/dL N 0.51-0.95 BUN/Creatinine Ratio 21.4 High 8-20 Calcium 9.6 mg/dL N 8.6-10.3 Total Protein 6.9 g/dL N 6.4-8.9 Albumin 4.7 g/dL N 3.2-5.2 Globulin 2.2 g/dL N 2-4 Albumin/Globulin Ratio 2.1 N 1-3 Total Bilirubin 0.40 mg/dL N 0.2-1.0 Alkaline Phosphatase 50 U/L N 34-104 Alt 11 U/L N 7-52 Ast 15 U/L N 13-39 Egfr Non- 96.4 >60 Egfr 116.6 >60 8 Testosterone Free 02/10/2019 [facility] Free Testosterone 0.32 ng/dL 0.06-1.03 9 & Total [phone] Testosterone 19 ng/dL 8-60 10 Laboratory test 02/10/2019 [facility] Androstenedione 77 ng/dL 30- 200 11 finding [phone] Level Laboratory test 06/04/2018 [facility] TSH (Thyroid Stim 1.82 N 0.34- 5.60 finding [phone] Horm) mcIU/mL Free T4 (Free Thyroxine) 0.97 ng/dL N 0.61-1.12 Prolactin 11.0 ng/mL N 1.0-25.0 Comp Metabolic Panel 05/22/2018 [facility] Sodium 138 mmol/L N 135- 145 [phone] Potassium 4.5 mmol/L N 3.5-5.0 Chloride 105 mmol/L N 101-111 Co2 Carbon Dioxide 27 mmol/L N 22-32 Anion Gap 6 mmol/L N 2-11 Glucose 79 mg/dL N 70-100 Blood Urea Nitrogen 11 mg/dL N 6-24 Creatinine 0.76 mg/dL N 0.51-0.95 BUN/Creatinine Ratio 14.5 N 8-20 Calcium 9.3 mg/dL N 8.6-10.3 Total Protein 6.8 g/dL N 6.4-8.9 Albumin 4.3 g/dL N 3.2-5.2 Globulin 2.5 g/dL N 2-4 Albumin/Globulin Ratio 1.7 N 1-3 Total Bilirubin 0.80 mg/dL N 0.2-1.0 Alkaline Phosphatase 53 U/L N 34-104 Alt 14 U/L N 7-52 Ast 20 U/L N 13-39 Egfr Non- 88.2 >60 Egfr 106.7 >60 12 CBC Auto Diff 05/22/2018 [facility] White Blood Count 6.5 10^3/uL N 3.5-10.8 [phone] Red Blood Count 4.22 10^6/uL N 4.00-5.40 Hemoglobin 13.4 g/dL N 12.0-16.0 Hematocrit 39 % N 35-47 Mean Corpuscular Volume 93 fL N 80-97 Mean Corpuscular Hemoglobin 32 pg High 27-31 Mean Corpuscular HGB Conc 34 g/dL N 31-36 Red Cell Distribution Width 13 % N 10.5-15 Platelet Count 285 10^3/uL N 150-450 Mean Platelet Volume 8.8 um3 N 7.4-10.4 Abs Neutrophils 3.7 10^3/uL N 1.5-7.7 Abs Lymphocytes 2.1 10^3/uL N 1.0-4.8 Abs Monocytes 0.5 10^3/uL N 0-0.8 Abs Eosinophils 0.1 10^3/uL N 0-0.6 Abs Basophils 0.1 10^3/uL N 0-0.2 Abs Nucleated RBC 0 10^3/uL Granulocyte % 57.2 % N 38-83 Lymphocyte % 33.0 % N 25-47 Monocyte % 7.3 % High 0-7 Eosinophil % 1.7 % N 0-6 Basophil % 0.8 % N 0-2 Nucleated Red Blood Cells % 0 Urinalysis Profile 05/22/2018 [facility] Urine Color Yellow [phone] Urine Appearance Clear Urine Specific [place] 1.005 Low 1.010-1.030 Urine pH 6.0 N 5-9 Urine Urobilinogen Negative Negative Urine Ketones Negative Negative Urine Protein Negative Negative Urine Leukocytes Negative Negative Urine Blood Negative Negative Urine Nitrite Negative Negative Urine Bilirubin Negative Negative Urine Glucose Negative Negative Laboratory 04/09/2018 [facility] Rapid Strep Negative Negative 13 test finding [phone] Molecular Laboratory 04/09/2018 [facility] Culture Throat SEE RESULT 14, test finding [phone] BELOW 15 Laboratory 12/13/2017 [facility] Urine Culture And SEE RESULT 16, test finding [phone] Sensitivities BELOW 17 Poc Urinalysis 12/13/2017 [facility] Poc Glucose, Negative Negative [phone] Urine Poc Bilirubin, Urine Negative Negative Poc Ketone, Urine Negative Negative Poc Specific [place], Urine 1.010 N 1.010-1.030 Poc Blood, Urine Negative Negative Poc pH, Urine 6.5 N 5-9 Poc Protein, Urine Negative Negative Poc Urobilinogen, Urine 0.2 Negative Poc Nitrite, Urine Negative Negative Poc Leukocytes, Urine Trace Abnormal Negative Poc Color, Urine Yellow Poc Clarity, Urine Clear 18 Ua Inhouse 08/07/2017 In House Ua Glucose - 19 Ua Bilirubin - Ua Ketones - Ua Specific [place] 1.005 Ua Blood - Ua PH 5.0 Ua Protein - Ua Urobilinogen - Ua Nitrite - Ua Leukocytes - Culture Urine Inhouse 08/07/2017 In House Colonies negative Ua Inhouse 07/23/2017 In House Ua Glucose - 20 Ua Bilirubin - Ua Ketones - Ua Specific [place] 1.025 Ua Blood 3+ Ua PH 6.0 Ua Protein tr Ua Urobilinogen - Ua Nitrite - Ua Leukocytes tr Culture Urine 07/23/2017 In House Colonies no growth Inhouse Laboratory test 07/13/2017 [facility] (HCG) Negative N Negative 21 finding [phone] Urine Urinalysis Profile 07/13/2017 [facility] Urine Color Elizabeth N 22 [phone] Urine Appearance Cloudy N Urine Specific [place] 1.014 N 1.010-1.030 Urine pH (SEE NOTE) N 5-9 23 Urine Urobilinogen (SEE NOTE) N Negative 24 Urine Ketones (SEE NOTE) N Negative 25 Urine Protein (SEE NOTE) N Negative 26 Urine Leukocytes (SEE NOTE) N Negative 27 Urine Blood (SEE NOTE) N Negative 28 * (SEE NOTE) N Negative 29 Urine Nitrite (SEE NOTE) N Negative 30 Urine Bilirubin (SEE NOTE) N Negative 31 Urine Glucose (SEE NOTE) N Negative 32 Urine White Blood Cell 3+(>20/hpf) Abnormal Absent Urine Red Blood Cell Trace(0-2/hpf) N Absent Urine Bacteria Absent N Absent Urine Squamous Epithelial Cell Present Abnormal Absent Laboratory test 05/26/2017 [facility] Urine Culture And SEE RESULT 33, 34 finding [phone] Sensitivities BELOW Celiac Panel 02/04/2017 [facility] Tissue <1.2 U/mL N 35 [phone] Transglutaminase IgA Ab Immunoglobulin A 114 mg/dL N 61 - 356 Celiac Interpretation See Comment N 36 Laboratory test finding 02/04/2017 [facility] Amylase 54 U/L N 29- 103 [phone] Lipase 18 U/L N 11.0-82.0 Vitamin D Total 25(Oh) 46.4 ng/mL N 30-50 Vitamin B12 348 pg/mL N 180-914 37 Comp Metabolic Panel 02/04/2017 [facility] Sodium 138 mmol/L N 133- 145 [phone] Potassium 3.9 mmol/L N 3.5-5.0 Chloride 105 mmol/L N 101-111 Co2 Carbon Dioxide 26 mmol/L N 22-32 Anion Gap 7 mmol/L N 2-11 Glucose 90 mg/dL N 70-100 Blood Urea Nitrogen 10 mg/dL N 6-24 Creatinine 0.78 mg/dL N 0.51-0.95 BUN/Creatinine Ratio 12.8 N 8-20 Calcium 9.3 mg/dL N 8.6-10.3 Total Protein 6.4 g/dL N 6.4-8.9 Albumin 4.2 g/dL N 3.2-5.2 Globulin 2.2 g/dL N 2-4 Albumin/Globulin Ratio 1.9 N 1-3 Total Bilirubin 0.80 mg/dL N 0.2-1.0 Alkaline Phosphatase 40 U/L N 34-104 Alt 13 U/L N 7-52 Ast 19 U/L N 13-39 Egfr Non- 86.1 N >60 Egfr 110.8 N >60 38 Laboratory test 02/04/2017 [facility] Gastrin 80 pg/mL N 39 finding [phone] Laboratory test 08/13/2016 [facility] Urine Culture And SEE RESULT 40, 41 finding [phone] Sensitivities BELOW Ureaplasma 08/13/2016 [facility] Ureaplasma Source URINE N [phone] Ureaplasma urealyticum PCR Negative N 42 Ureaplasma parvum PCR Negative N 43 Mycoplasma Hominis PCR 08/13/2016 [facility] Mycoplasma hominis URINE N [phone] Source Mycoplasma hominis Result Negative N 44 Laboratory 05/22/2016 [facility] Urine Culture And SEE RESULT 45, 46 test finding [phone] Sensitivities BELOW Laboratory 12/20/2015 [facility] Gardnerella/Yeast SEE RESULT 47 test finding [phone] : Vaginal Dna BELOW Laboratory 12/20/2015 [facility] Urine Glucose Negative N Negative test finding [phone]/dL Urine Culture And Sensitivities SEE RESULT BELOW 48 Laboratory test 12/09/2015 [facility] Erythrocyte Sed Rate 8 mm/Hr N 0-14 49 finding [phone] Hepatitis C Antibody Nonreactive N Nonreactive 50 C Reactive Protein < 1.00 mg/L N < 5.00 51 HIV 1/2 AB 12/09/2015 [facility] HIV 1 2 Antibody Nonreactive N Nonreactive 52 Evaluation [phone] Celiac Panel 12/09/2015 [facility] Tissue <1.2 U/mL N 53 [phone] Transglutaminase IgA Ab Immunoglobulin A 119 mg/dL N 61 - 356 Celiac Interpretation See Comment N 54 Celiac Hla DQ1/DQ2 12/09/2015 [facility] Hla-Dqa1 SEE BELOW N 55 [phone] Hla-DQB1 SEE BELOW N 56 Celiac Gene Pairs Present? No N Celiac Gene Interpretation See Comment N 57 Laboratory test finding 12/09/2015 [facility] Vitamin B12 524 pg/mL N 180-914 58 [phone] Vitamin D Total 25(Oh) 44.4 ng/mL N 30-50 59 Lipid Profile (Trig/Chol/HDL) 12/09/2015 [facility] Triglycerides 71 mg /dL N 60 [phone] Cholesterol 195 mg/dL N 61 HDL Cholesterol 59.5 mg/dL N 62 LDL Cholesterol 121 mg/dL N 63 Laboratory test 12/09/2015 [facility] TSH (Thyroid 1.49 ?IU/mL N 0.34 -5.60 64 finding [phone] Stim Horm) Comp Metabolic 12/09/2015 [facility] Sodium 138 mmol/L N 133-145 Panel [phone] Potassium 4.1 mmol/L N 3.5-5.0 Chloride 103 mmol/L N 101-111 Co2 Carbon Dioxide 28 mmol/L N 22-32 Anion Gap 7 mmol/L N 2-11 Glucose 85 mg/dL N 70-100 Blood Urea Nitrogen 10 mg/dL N 6-24 Creatinine 0.73 mg/dL N 0.51-0.95 BUN/Creatinine Ratio 13.7 N 8-20 Calcium 9.8 mg/dL N 8.6-10.3 Total Protein 6.7 g/dL N 6.4-8.9 Albumin 4.6 g/dL N 3.2-5.2 Globulin 2.1 g/dL N 2-4 Albumin/Globulin Ratio 2.2 N 1-3 Total Bilirubin 0.70 mg/dL N 0.2-1.0 Alkaline Phosphatase 43 U/L N 34-104 Alt 9 U/L N 7-52 Ast 14 U/L N 13-39 Egfr Non- 93.6 N >60 Egfr 120.4 N >60 65 CBC Auto Diff 12/09/2015 [facility] White Blood Count 3.7 10^3/uL N 3.5-10.8 [phone] Red Blood Count 4.12 10^6/uL N 4.0-5.4 Hemoglobin 13.1 g/dL N 12.0-16.0 Hematocrit 38 % N 35-47 Mean Corpuscular Volume 93 fL N 80-97 Mean Corpuscular Hemoglobin 32 pg High 27-31 Mean Corpuscular HGB Conc 34 g/dL N 31-36 Red Cell Distribution Width 13 % N 10.5-15 Platelet Count 249 10^3/uL N 150-450 Mean Platelet Volume 9 um3 N 7.4-10.4 Abs Neutrophils 2.0 10^3/uL N 1.5-7.7 Abs Lymphocytes 1.4 10^3/uL N 1.0-4.8 Abs Monocytes 0.2 10^3/uL N 0-0.8 Abs Eosinophils 0.1 10^3/uL N 0-0.6 Abs Basophils 0 10^3/uL N 0-0.2 Abs Nucleated RBC 0 10^3/uL N Granulocyte % 52.7 % N 38-83 Lymphocyte % 37.6 % N 25-47 Monocyte % 5.9 % N 1-9 Eosinophil % 2.5 % N 0-6 Basophil % 1.3 % N 0-2 Nucleated Red Blood Cells % 0.1 N Laboratory test 07/28/2015 [facility] Urine Culture And SEE RESULT 66 finding [phone] Sensitivities BELOW Urinalysis 09/10/2014 [facility] Urine Color Straw N [phone] Urine Appearance Clear N Urine Specific [place] 1.005 Low 1.010-1.030 Urine pH 6.0 N 5-9 Urine Urobilinogen Negative N Negative Urine Ketones Negative N Negative Urine Protein Negative N Negative Urine Leukocytes Negative N Negative Urine Blood Negative N Negative Urine Nitrite Negative N Negative Urine Bilirubin Negative N Negative Urine Glucose Negative N Negative Culture Urine And Sens 09/10/2014 [facility] Urine Culture (SEE NOTE) 67 [phone] Culture Urine Inhouse 09/03/2014 In House Colonies 10/6 Urine Micro Inhouse 09/03/2014 In House Ua WBC TNTC Ua RBC - Ua Casts - Ua Epi 2-4 Ua Other many bacteria WBC clumps Ua Glucose - Ua Bilirubin - Ua Ketones - Ua Specific [place] 1.005 Ua Blood - Ua PH 6.0 Ua Protein - Ua Urobilinogen - Ua Nitrite + Ua Leukocytes 2+ Urine Culture And 02/10/2014 [facility] Urine (SEE NOTE) 68 Sensitivities [phone] Culture Urine Culture And 10/01/2013 [facility] Urine (SEE NOTE) 69 Sensitivities [phone] Culture Laboratory test 08/05/2013 [facility]. ThinPrep See Note 70 finding LABORATORY Pap: [phone] Cervix/Endo cx Laboratory test 08/05/2013 [facility] HPV High Positive High Negative 71 finding LABORATORY Risk [phone] Laboratory test 06/15/2013 [facility] HCG, Quant < 1.0 72 finding LABORATORY mIU/mL [phone] Laboratory test 01/29/2013 In House Culture neg finding Throat Rapid Screen Culture Throat neg Laboratory test 08/05/2012 [facility] Blood Urea 7 mg/dL 6-24 finding [phone] Nitrogen Creatinine 08/05/2012 [facility] Creatinine 0.90 mg/dL 0.50-1.40 [phone] Egfr Non- 75.7 >60 Egfr 97.3 >60 73 Creatinine Clearance 08/05/2012 [facility] Urine Random 96.8 mg/dL [phone] Creatinine Creatinine 0.8 mg/dL 0.5-1.4 Creatinine Clearance 209 mL/min High 80-125 Urine Collection Time 24 Urine Total Volume 2450 ML Total Protein 24HR 08/05/2012 [facility] Urine Random Total 5 mg/dL Urine [phone] Protein Urine Total Protein/24HR 122 MG/24HR 0-165 Laboratory test 04/19/2012 [facility] Urine Culture See Note 74 finding LABORATORY [phone] Comprehensive 04/18/2012 [facility] Glucose 93 mg/dL 76- 115 Metabolic Panel LABORATORY [phone] BUN 11 mg/dL 5-23 Creatinine 0.8 mg/dL 0.5-1.4 Glom Filtration Rate, Estimate >60 mL/min >60 If >60 mL/min >60 75 BUN/Creat 13.7 ratio Sodium 142 mmol/L 136-145 Potassium 4.1 mmol/L 3.5-5.1 Chloride 106 mmol/L 98-107 Carbon Dioxide 25 mEq/L 18-29 Anion Gap 15 mEq/L 8-16 Calcium 8.8 mg/dL 8.5-10.1 Total Protein 6.6 g/dL 6.3-8.0 Albumin 3.7 g/dL 3.5-5.0 Globulin 2.9 g/dL 1.9-4.3 Alb/Glob 1.3 ratio Bilirubin,Total 0.7 mg/dL 0.2-1.2 Sgot/Ast 12 U/L Low 16-40 SGPT/Alt 18 U/L Low 30-65 Alkaline Phosphatase 42 U/L Low 50-136 Laboratory test 04/18/2012 [facility] Lipase 183 U/L 28- 380 finding LABORATORY [phone] CBS W/Automated 04/18/2012 [facility] White Blood 6.1 K/uL 3.1-10.7 Diff LABORATORY Count [phone] Red Blood Count 3.82 M/uL Low 3.90-5.40 Hemoglobin 12.1 gm/dL 11.6-15.8 Hematocrit 36.1 % 36.0-46.1 Mean Cell Volume 94.5 fl 80.9-99.0 Mean Corpuscular HGB 31.7 pg 25.9-32.7 Mean Corpuscular HGB Conc 33.5 g/dL 30.8-34.3 Platelet Count 240 K/uL 155-360 Red Cell Distri Width SD 41.9 fl 3-47 Red Cell Distri Width %CV 12.5 % 11.7-14.4 Mean Platelet Volume 9.9 fL 8.9-12.4 Neut% 50.1 % 40.4-72.8 Lymph % 39.8 % 17.0-46.1 [place] % 7.5 % 4.3-13.2 Eo% 1.8 % 0.0-6.6 Bas% 0.8 % 0.0-1.1 Neut# 3.05 K/uL 1.0-7.0 Lymph # 2.43 K/uL 0.8-3.4 [place] # 0.46 K/uL 0.3-0.9 Eos # 0.11 K/uL 0.0-0.5 Baso # 0.05 K/uL 0.0-0.1 Laboratory 04/18/2012 [facility] Urine HCG POSITIVE High Negative test finding LABORATORY (Qualitative) [phone] Urine Screen See Note 76 Laboratory test 04/18/2012 [facility] HCG Serum, POSITIVE High finding LABORATORY Qualitative [phone] Urinalysis With 04/18/2012 [facility] Urine Color YELLOW Yellow Microscopic LABORATORY [phone] Urine Clarity CLEAR Clear Urine Glucose - Dipstick NEGATIVE mg/dL Negative Urine Bilirubin - Dipstick NEGATIVE Negative Urine Ketone NEGATIVE mg/dL Negative Urine Specific [place] <=1.005 Low 1.010-1.030 Urine Blood SMALL High Negative Urine PH 7.5 6.5-7.5 Urine Protein - Dipstick NEGATIVE mg/dL Negative Urine Urobilinogen - Dipstick 0.2 E.U./dL 0.2-1.0 Urine Nitrite - Dipstick NEGATIVE Negative Urine Leuk Esterase NEGATIVE Negative Urine RBC 0-2 rbc/hpf 0-7 Urine WBC 0-2 wbc/hpf 0-7 Urine Epithelial Cells MODERATE NONESEEN 77 Urine Bacteria FEW NONESEEN Basic Metabolic Panel 10/31/2011 [facility] Sodium 133 mmol/L Low 135 -145 [phone] Potassium 3.5 mmol/L 3.5-5.0 Chloride 100 mmol/L Low 101-111 Co2 (Carbon Dioxide) 24.0 mmol/L 22-32 Anion Gap 9.0 mmol/L 2-11 78 Glucose 107 mg/dL High 70-100 BUN 7 mg/dL 6-24 Creatinine 0.8 mg/dL 0.50-1.40 One Over Creatinine 1.25 BUN/Creatinine Ratio 8.8 8-20 Calcium 8.5 mg/dL 8.1-9.9 eGFR Non- 86.7 > 60 eGFR 111.5 > 60 79 Laboratory test finding 10/31/2011 [facility] TSH 1.23 MIU/ML 0.34- 5.60 [phone] C Reactive Protein 25.3 mg/dL High Less Than 0.5 Mita (Antinuclear 10/31/2011 [facility] Antinuclear AB NEGATIVE Negative Antibodies) [phone] Laboratory test 10/31/2011 [facility] Rheumatoid 16 IU/mL High <15 80 finding [phone] Factor Laboratory test 10/31/2011 [facility] Erythrocyte Sed 57 MM/HR High 0 -15 finding [phone] Rate Manual 10/31/2011 [facility] Polysegmented 88 % High 38-83 Differential [phone] Neutrophil Band Neutrophil 3 % 0-8 Lymphocyte 4 % Low 25-47 Monocyte 4 % 0-13 Eosinophil 1 % 0-6 Absolute Neutrophil Count 10.4 RBC Morphology NORMAL CBC Auto Diff 10/31/2011 [facility] White Blood Count 11.5 CUMM High 4.8-10.8 [phone] Red Cell Count 4.36 CUMM 4.2-5.4 Hemoglobin 14.1 g/dL 12.0-16.0 Hematocrit 41 % 35-47 Mean Corpuscular Volume 93 um3 79-97 Mean Corpuscular Hemoglob 32 pg High 27-31 Mean Corpuscular HGB Cone 35 g/dL 32-36 Redcell Distribution WDTH 12 % 10.5-15 Platelet Count 188 CUMM 150-450 Mean Platelet Volume 9.0 um3 7.4-10.4 81 Helico Pylori 08/15/2011 [facility] Helico Pylori (SEE NOTE) 82 Antigen- Stool [phone] Antigen- Stool Helico Pylori Antigen- Stool NEGATIVE Laboratory test 08/13/2011 [facility] Amylase 85 U/L 20-120 83 finding [phone] CBC Auto Diff 08/13/2011 [facility] White Blood 6.0 CUMM 4.8-10.8 [phone] Count Red Cell Count 4.31 CUMM 4.2-5.4 Hemoglobin 13.6 g/dL 12.0-16.0 Hematocrit 40 % 35-47 Mean Corpuscular Volume 92 um3 79-97 Mean Corpuscular Hemoglob 32 pg High 27-31 Mean Corpuscular HGB Cone 34 g/dL 32-36 Redcell Distribution WDTH 13 % 10.5-15 Platelet Count 236 CUMM 150-450 Mean Platelet Volume 8.7 um3 7.4-10.4 Gran % 65.0 % 38-83 Lymph % 26.2 % 25-47 Mononuclear % 5.8 % 1-9 Eosinophil % 2.2 % 0-6 Basophil % 0.8 % 0-2 Abs Lymphs 1.6 1.0-4.8 Abs Mononuclear 0.4 0-0.8 Absolute Neutrophil Count 3.9 1.5-7.7 Abs Eosinophils 0.1 0-0.6 Abs Basophils 0 0-0.2 Comp Metabolic Panel 08/13/2011 [facility] Sodium 138 mmol/L 135- 145 [phone] Potassium 4.1 mmol/L 3.5-5.0 Chloride 104 mmol/L 101-111 Co2 (Carbon Dioxide) 29.0 mmol/L 22-32 Anion Gap 5.0 mmol/L 2-11 84 Glucose 88 mg/dL 70-100 BUN 8 mg/dL 6-24 Creatinine 0.7 mg/dL 0.50-1.40 One Over Creatinine 1.42 BUN/Creatinine Ratio 11.4 8-20 Calcium 9.5 mg/dL 8.1-9.9 Total Protein 6.7 GM/DL 6.2-8.1 Albumin 4.3 GM/DL 3.6-5.4 Globulin 2.4 GM/DL 2-4 Albumin/Globulin Ratio 1.8 1-3 Bilirubin Total 1.1 mg/dL 0.4-1.5 85 Alkaline Phosphatase 46 U/L 30-110 Alt (SGPT) 19 U/L 14-54 Ast (Sgot) 18 U/L 12-42 eGFR Non- 102.0 > 60 eGFR 131.1 > 60 86 Laboratory test finding 08/13/2011 [facility] Lipase 29 U/L 22-51 [phone] 1 REFERENCE VALUE Premenopausal :17-200 Postmenopausal : 7-40 ADDITIONAL INFORMATION This test was developed and its performance characteristics determined by [facility] in a manner consistent with CLIA requirements. This test has not been cleared or approved by the U.S. Food and Drug Administration. 2 REFERENCE VALUE Premenopausal: 15-350 (E2 levels vary widely through the menstrual cycle.) Postmenopausal: <10 ADDITIONAL INFORMATION This test was developed and its performance characteristics determined by [facility] in a manner consistent with CLIA requirements. This test has not been cleared or approved by the U.S. Food and Drug Administration. Test Performed by: [facility] [address] [place] [address] 3 Results that are missing on this view, can be seen on PDF view. SL 4 AM 8.7-22.4 PM <10 5 Normal Range 180 to 914 Indeterminate Range 145 to 180 Deficient Range <145 6 Normally menstruating females - Follicular phase 3 - 9 - Mid-cycle peak 4 - 23 - Luteal phase 1 - 6 Postmenopausal females 16 - 114 7 Normally menstruating females - Follicular Phase 1 - 18 - Mid-Cycle Peak 24 - 105 - Luteal Phase 0.6 - 20 Postmenopausal females 15 - 62 8 Because ethnic data is not always readily available, this report includes an eGFR for both -Americans and non- Americans. The National Kidney Disease Education Program (NKDEP) does not endorse the use of the MDRD equation for patients that are not between the ages of 18 and 70, are , have extremes of body size, muscle mass, or nutritional status, or are non- or non-. According to the National Kidney Foundation, irrespective of diagnosis, the stage of the disease is based on the level of kidney function: Stage Description GFR(mL/min/1.73 m(2)) 1 Kidney damage with normal or decreased GFR 90 2 Kidney damage with mild decrease in GFR 60-89 3 Moderate decrease in GFR 30-59 4 Severe decrease in GFR 15-29 5 Kidney failure <15 (or dialysis) 9 ADDITIONAL INFORMATION Testing performed by [facility]. This test was developed and its performance characteristics determined by [facility] in a manner consistent with CLIA requirements. This test has not been cleared or approved by the U.S. Food and Drug Administration. 10 ADDITIONAL INFORMATION Testing performed by Liquid Chromatography-Tandem Mass Spectrometry (LC-MS/MS). This test was developed and its performance characteristics determined by [facility] in a manner consistent with CLIA requirements. This test has not been cleared or approved by the U.S. Food and Drug Administration. Test Performed by: [facility] - [address] [address] 11 ADDITIONAL INFORMATION This test was developed and its performance characteristics determined by [facility] in a manner consistent with CLIA requirements. This test has not been cleared or approved by the U.S. Food and Drug Administration. Test Performed by: [facility] - [address] [address] 12 Because ethnic data is not always readily available, this report includes an eGFR for both -Americans and non- Americans. The National Kidney Disease Education Program (NKDEP) does not endorse the use of the MDRD equation for patients that are not between the ages of 18 and 70, are , have extremes of body size, muscle mass, or nutritional status, or are non- or non-. According to the National Kidney Foundation, irrespective of diagnosis, the stage of the disease is based on the level of kidney function: Stage Description GFR(mL/min/1.73 m(2)) 1 Kidney damage with normal or decreased GFR 90 2 Kidney damage with mild decrease in GFR 60-89 3 Moderate decrease in GFR 30-59 4 Severe decrease in GFR 15-29 5 Kidney failure <15 (or dialysis) 13 Camera Maker: [id number] 15 SEE RESULT BELOW Name: RAMON MARINELLI : [address]: Lara Saravia MD Acct: [id number] Unit: [id number] AGE: 32 Location: [facility] Re04/09/18 SEX: F Status: DEP ER SPEC: [id number] JO ANN: 04/09/18-[address] [facility] DR: Lara Saravia MD REQ: [id number] RECD: 04/09/18 STATUS: GARTH ALBARRAN DR: Daija Campos PA _ SOURCE: THROAT SPDESC: ORDERED: Throat Culture COMMENTS: [id number] Procedure Result Reported Site Throat Culture Final 04/11/18- 1012 ML Organism 1 NORMAL GAMAL Quantity 3+ Throat cultures are clinically indicated to detect the presence of group A strep, arcanobacterium and yeast. In certain cases, predominating organisms will be reported. * - [facility] . END OF REPORT DEPARTMENT OF PATHOLOGY, [address] [place] [address] Ilia Almaraz M.D. Director [facility] # [id number] 16 [id number] 17 SEE RESULT BELOW Name: RAMON MARINELLI : [address]: Pratibha Thomas MD Acct: [id number] Unit: [id number] AGE: 32 Location: [facility] Re12/13/17 SEX: F Status: DEP ER SPEC: [id number] JO ANN: 12/13/[address] [facility] DR: Yumi Arevalo NP REQ: [id number] RECD: 12/13/17 STATUS: GARTH ALBARRAN DR: Pratibha Weems MD _ SOURCE: URINE SPDESC: ORDERED: Urine Culture COMMENTS: [id number] Procedure Result Reported Site Urine Culture Final 12/15/17- 1151 ML No growth of clinically significant organisms * ML - Main Lab . END OF REPORT DEPARTMENT OF PATHOLOGY, [address] [place] [address] Ilia Almaraz M.D. Director [facility] # [id number] 18 Camera Maker: [id number] void, clear, light yellow 20 void, clear, dark yellow Pt has menses. 21 If is still suspected, please repeat test after 48 to 72 hours. This test detects intact HCG only and is indicated for the early detection of . 22 Unable to evaluate urinalysis dipstick results due to interfering color. 23 Unable to evaluate urinalysis dipstick results due to interfering color. 24 Unable to evaluate urinalysis dipstick results due to interfering color. 25 Unable to evaluate urinalysis dipstick results due to interfering color. 26 Unable to evaluate urinalysis dipstick results due to interfering color. 27 Unable to evaluate urinalysis dipstick results due to interfering color. 28 Unable to evaluate urinalysis dipstick results due to interfering color. 29 Unable to evaluate urinalysis dipstick results due to interfering color. 30 Unable to evaluate urinalysis dipstick results due to interfering color. 31 Unable to evaluate urinalysis dipstick results due to interfering color. 32 Unable to evaluate urinalysis dipstick results due to interfering color. 33 [id number] 34 SEE RESULT BELOW Name: RAMON MARINELLI : [address]: Pratibha Thomas MD Acct: [id number] Unit: [id number] AGE: 31 Location: [facility] Re05/26/17 SEX: F Status: DEP ER SPEC: [id number] JO ANN: 05/26/17-[address] [facility] DR: Lillie Fabian NP REQ: [id number] RECD: 05/27/17-1 STATUS: GARTH ALBRARAN DR: Mat [facility] Orlin Weems MD _ SOURCE: URINE SPDESC: ORDERED: Urine Culture COMMENTS: [id number] Procedure Result Reported Site Urine Culture Final 05/28/17- 1000 ML Organism 1 STAPHYLOCOCCUS SAPROPHYTICUS Sayre Count >100,000 (Many) CFU/ML Routine sensitivity testing of urine isolates of S. saprophyticus is not advised, because infections respond to concentrations achieved in urine of antimicrobial agents commonly used to treat acute, uncomplicated urinary tract infections (e.g. nitrofurantoin, trimethoprim+/- sulfamethoxazole, or a fluoroquinolone). NCC October 2001 * ML - MAIN LAB ([facility]) . END OF REPORT * ML=Testing performed at Main Lab DEPARTMENT OF PATHOLOGY, [address] [place] [address] Ilia Almaraz M.D. Director [facility] # [id number] 35 REFERENCE VALUE <4.0 (Negative) Test Performed by: [address] [address] 36 Negative serology. Celiac disease unlikely. However, approximately 10% of patients with celiac disease are seronegative. Also, patients who are already adhering to a gluten-free diet may be seronegative. If celiac disease is highly clinically suspected, consider HLA-DQ typing. Test Performed by: [address] [address] 37 Normal Range 180 to 914 Indeterminate Range 145 to 180 Deficient Range <145 38 Because ethnic data is not always readily available, this report includes an eGFR for both -Americans and non- Americans. The National Kidney Disease Education Program (NKDEP) does not endorse the use of the MDRD equation for patients that are not between the ages of 18 and 70, are , have extremes of body size, muscle mass, or nutritional status, or are non- or non-. According to the National Kidney Foundation, irrespective of diagnosis, the stage of the disease is based on the level of kidney function: Stage Description GFR(mL/min/1.73 m(2)) 1 Kidney damage with normal or decreased GFR 90 2 Kidney damage with mild decrease in GFR 60-89 3 Moderate decrease in GFR 30-59 4 Severe decrease in GFR 15-29 5 Kidney failure <15 (or dialysis) 39 REFERENCE VALUE <100 Reference ranges valid for >=8 hour fast. Test Performed by: [facility] [address] [address] 40 [id number] 41 SEE RESULT BELOW Name: RAMON MARINELLI : [address]: Morena Grady MD Acct: [id number] Unit: [id number] AGE: 30 Location: [facility] Re08/13/16 SEX: F Status: DEP ER SPEC: [id number] JO ANN: 08/13/16-[address] [facility] DR: Morena Grady MD REQ: [id number] RECD: 08/13/16 STATUS: GARTH ALBARRAN DR: Qasim Bravo MD _ SOURCE: URINE [facility]: ORDERED: Urine Culture COMMENTS: [id number] QUERIES: Urine Source: Random Procedure Result Reported Site Urine Culture Final 08/15/16- 08 ML Organism 1 ESCHERICHIA COLI Sayre Count 50-75,000 (Many) CFU/ML 1. ESCHERICHIA COLI M.I.C. RX --------- ------ Ampicillin <=2 S Cefazolin <=4 S Cefepime <=1 S Ceftriaxone <=1 S Ciprofloxacin <=0.25 S Gentamicin <=1 S Levofloxacin <=0.12 S Meropenem <=0.25 S Nitrofurantoin <=16 S Tetracycline >=16 R Pipercillin/Tazobactam <=4 S Trimethoprim/Sulfamethoxazole >=320 R Amoxicillin/Clavulanic Acid <=2 S Aztreonam <=1 S Contact the Microbiology Department for any additional antibiotic reporting. * ML - [facility] ([facility]) . END OF REPORT * ML=Testing performed at [facility] DEPARTMENT OF PATHOLOGY, [address] [place] [address] Ilia Almaraz M.D. Director [facility] # [id number] 42 REFERENCE VALUE Not Applicable 43 REFERENCE VALUE Not Applicable ADDITIONAL INFORMATION This test was developed and its performance characteristics determined by [facility] in a manner consistent with CLIA requirements. This test has not been cleared or approved by the U.S. Food and Drug Administration. Test Performed by: [facility] [address] Economic Analysis Director: Orlin Francis II, M.D., Ph.D. 44 REFERENCE VALUE Not Applicable ADDITIONAL INFORMATION This test was developed and its performance characteristics determined by [facility] in a manner consistent with CLIA requirements. This test has not been cleared or approved by the U.S. Food and Drug Administration. Test Performed by: [facility] [address] Economic Analysis Director: Orlin Fracnis II, M.D., Ph.D. 45 [id number] 46 SEE RESULT BELOW Name: RAMON MARINELLI : [address]: Bhaskar Walker MD Acct: [id number] Unit: [id number] AGE: 30 Location: [facility] Re05/22/16 SEX: F Status: DEP ER SPEC: [id number] JO ANN: 05/22/[address] [facility] DR: Bhaskar Walker MD REQ: [id number] RECD: 05/22/16 STATUS: GARTH ALBARRAN DR: Qasim Bravo MD _ SOURCE: URINE SPDESC: ORDERED: Urine Culture COMMENTS: [id number] Procedure Result Reported Site Urine Culture Final 05/24/16- 0857 ML Mixed gamal; possible contamination. Suggest resubmission. * ML - MAIN LAB ([facility]) . END OF REPORT * ML=Testing performed at Main Lab DEPARTMENT OF PATHOLOGY, [address] [place] [address] Ilia Almaraz M.D. Director [facility] # [id number] 47 SEE RESULT BELOW Name: RAMON MARINELLI : [address]: Morena Grady MD Acct: [id number] Unit: [id number] AGE: 30 Location: [facility] Re12/20/15 SEX: F Status: DEP ER SPEC: [id number] JO ANN: 12/20/15-Shani CARVALHO DR: Yumi Arevalo NP REQ: [id number] RECD: 12/21/15 STATUS: GARTH ALBARRAN DR: Qasim Grady MD _ SOURCE: VAGINAL SPDESC: ORDERED: Vanessa,Yeast DNA, Trich DNA Procedure Result Reported Site Gardnerella/Yeast: Vaginal DNA Final 12/21/15- 1307 ML Organism 1 POSITIVE GARDNERELLA Organism 2 Negative Rowan The presence of G. vaginalis, although suggestive, is not diagnostic for bacterial vaginosis. Results should be interpreted in conjuction with other clinical and laboratory data available. Women with vaginal discharge should be evaluated for risk factors of cervicitis and pelvic inflammatory disease, toxic shock syndrome (S.aureus), and if present, evaluated for organisms not included in this assay such as N. gonorrhoeae, C. trachomatis, Mobiluncus, Mycoplasma and/or Prevotella. Mixed infections may occur. The performance of this test on patient specimens collected during or immediately after antimicrobial therapy is unknown. The presence or absence of Rowan species, or G. vaginalis cannot be used as a test for therapeutic success or failure. Trichomonas: Vaginal DNA Probe Final 12/21/15- 1307 ML Organism 1 Negative Trichomonas CONTINUED ON NEXT PAGE * ML=Testing performed at Main Lab DEPARTMENT OF PATHOLOGY, [address] [place] [address] Ilia Almaraz M.D. Director [facility] # [id number] Patient: RAMON MARINELLI [id number] (Continued) Specimen: [id number] Collected: 12/20/15 Received: 12/21/15 (Continued) Procedure Result Reported Site Trichomonas: Vaginal DNA Probe Final (continued) 12/21/155 The presence or absence of T. vaginalis cannot be used as a test for therapeutic success or failure. * ML - MAIN LAB ([facility]) . END OF REPORT * ML=Testing performed at Main Lab DEPARTMENT OF PATHOLOGY, [address] [place] [address] Ilia Almaraz M.D. Director [facility] # [id number] 48 SEE RESULT BELOW Name: RAMON MARINELLI : [address]: Morena Grady MD Acct: [id number] Unit: [id number] AGE: 30 Location: [facility] Re12/20/15 SEX: F Status: DEP ER SPEC: [id number] JO ANN: 12/20/15-[address] [facility] DR: Morena Grady MD REQ: [id number] RECD: 12/21/151114 STATUS: GARTH ALBARRAN DR: [facility] Qasim Bravo MD _ SOURCE: URINE SPDESC: ORDERED: Urine Culture Procedure Result Reported Site Urine Culture Final 12/22/15- 919 ML No Growth (<1,000 CFU/mL) * ML - MAIN LAB ([facility]) . END OF REPORT * ML=Testing performed at Main Lab DEPARTMENT OF PATHOLOGY, [address] [place] [address] Ilia Almaraz M.D. Director [facility] # [id number] 49 FASTING 12 HOUR 50 FASTING 12 HOUR 51 Acute inflammation: >10.00 52 It is recognized that currently available assays for the detection of antibodies to HIV-1 and/or HIV-2 may not detect all infected individuals. HIV antibodies may be undetectable in some stages of the infection and in some clinical conditions. The performance of this assay has not been established for populations of infants or children. Assayed by Chemiluminescence Microparticle Immunoassay on the Siemens Advia Centaur CP. Values obtained with different methods or kits cannot be used interchangeably.The diagnostic specificity of the ADVIA Centaur 1/O/2 Enhanced assay in the low risk population was 99.90% (6052/6058) with a 95% confidence interval of 99.78 to 99.96%. 53 REFERENCE VALUE <4.0 (Negative) Test Performed by: [place] [address] Economic Analysis Director: Orlin Francis II, M.D., Ph.D. 54 Negative serology. Celiac disease unlikely. However, approximately 10% of patients with celiac disease are seronegative. Also, patients who are already adhering to a gluten-free diet may be seronegative. If celiac disease is highly clinically suspected, consider HLA-DQ typing. Test Performed by: [place] [address] Economic Analysis Director: Orlin Francis II, M.D., Ph.D. 55 RESULT: 01:02,02:01 REFERENCE VALUE Not Applicable 56 RESULT: 03:03,06:02 DQ Serologic Equivalent: 9,6 REFERENCE VALUE Not Applicable 57 The absence of HLA celiac permissive genes would make the presence of celiac disease unlikely. ADDITIONAL INFORMATION Method: Molecular typing of HLA antigens performed using reverse SSOP and/or SSP methods, reported as serological equivalents and low to medium resolution molecular values. Performing Laboratory CLIA# [id number] Test Performed by: [place] [address] Economic Analysis Director: Orlin Francis II, M.D., Ph.D. 58 Normal Range 180 to 914 Indeterminate Range 145 to 180 Deficient Range <145 59 FASTING 12 HOUR 60 Desirable <150 Borderline high 150-199 High 200-499 Very High >500 61 Desirable <200 Borderline high 200-239 High >239 62 Low <40 Desirable: 40-60 High: >60 63 Desirable: <100 mg/dL Near Optimal: 100-129 mg/dL Borderline High: 130-159 mg/dL High: 160-189 mg/dL Very High: >189 mg/dL 64 FASTING 12 HOUR 65 Because ethnic data is not always readily available, this report includes an eGFR for both -Americans and non- Americans. The National Kidney Disease Education Program (NKDEP) does not endorse the use of the MDRD equation for patients that are not between the ages of 18 and 70, are , have extremes of body size, muscle mass, or nutritional status, or are non- or non-. According to the National Kidney Foundation, irrespective of diagnosis, the stage of the disease is based on the level of kidney function: Stage Description GFR(mL/min/1.73 m(2)) 1 Kidney damage with normal or decreased GFR 90 2 Kidney damage with mild decrease in GFR 60-89 3 Moderate decrease in GFR 30-59 4 Severe decrease in GFR 15-29 5 Kidney failure <15 (or dialysis) 66 SEE RESULT BELOW Name: RAMON MARINELLI : [address]: Lizette Reeves Acct: [id number] Unit: [id number] AGE: 29 Location: [facility] Re07/28/15 SEX: F Status: DEP ER SPEC: [id number] JO ANN: 07/28/[address] [facility] DR: Yumi Rosario Christinaberna MAHARAJ REQ: [id number] RECD: 07/28/15 STATUS: GARTH ALBARRAN DR: Qasim Dia DO _ SOURCE: URINE SPDESC: ORDERED: Urine Culture Procedure Result Verified Site Urine Culture Final 07/30/15- 1146 ML Organism 1 NORMAL GAMAL Sayre Count >100,000 (Many) CFU/ML * ML - MAIN LAB ([facility]) . END OF REPORT * ML=Testing performed at Main Lab DEPARTMENT OF PATHOLOGY, [address] [place] [address] Ilia Almaraz M.D. Director [facility] # [id number] 67 RUN DATE: 09/12/14 [facility] LAB LIVE PAGE 1 RUN TIME: [address] [place] [address] Specimen Inquiry Name: RAMON MARINELLI : [address]: Nicole WOODARD Acct: [id number] Unit: [id number] AGE: 28 Location: [facility] Re09/10/14 SEX: F Status: REG REF SPEC: [id number] JO ANN: 09/10/[address]: Nicole WOODARD REQ: [id number] RECD: 09/10/14 STATUS: COMP _ SOURCE: URINE SPDESC: ORDERED: Urine Culture QUERIES: Urine Source: Clean Catch Procedure Result Verified Site Urine Culture Final 09/12/14- 0842 ML No Growth Day 2 (<1,000 CFU/mL) END OF REPORT * ML=Testing performed at Main Lab DEPARTMENT OF PATHOLOGY, [facility] [address] [place], [place] [address] Ilia Almaraz M.D. Director CLIA # [id number] 68 RUN DATE: 02/12/14 [facility] LAB LIVE PAGE 1 RUN TIME: 09 [facility] [employer] [place], [place] [address] Specimen Inquiry Name: YVESRAMON : [address]: Lizette Reeves Acct: [id number] Unit: [id number] AGE: 28 Location: [facility] Re02/10/14 SEX: F Status: DEP ER SPEC: [id number] JO ANN: 02/10/14-[address] [facility] DR: Lizette Dia DO REQ: [id number] RECD: 02/10/14 STATUS: GARTH ALBARRAN DR: Mat Physicians Daija QUINONEZ _ SOURCE: URINE SPDESC: ORDERED: Urine Culture Procedure Result Verified Site Urine Culture Final 02/12/14- 0935 ML Organism 1 NORMAL GAMAL Sayre Count 25-50,000 (Moderate) CFU/ML END OF REPORT * ML=Testing performed at Main Lab DEPARTMENT OF PATHOLOGY, [facility] [place], [place] [address] Ilia Almaraz M.D. Director [facility] # [id number] 69 RUN DATE: 10/04/13 [facility] LAB LIVE PAGE 1 RUN TIME: [address] [employer] [place], [place] [address] Specimen Inquiry Name: RAMON MARINELLI : [address]: Delvin Sheth MD Acct: [id number] Unit: [id number] AGE: 27 Location: [facility] Re10/01/13 SEX: F Status: DEP ER SPEC: [id number] JO ANN: 10/01/[address] [facility] DR: Yumi Arevalo NP REQ: [id number] RECD: 10/02/13 STATUS: GARTH ALBARRAN DR: Helen Sheth MD _ SOURCE: URINE SPDESC: ORDERED: Urine Culture Procedure Result Verified Site Urine Culture Final 10/04/13- 1201 ML Organism 1 NORMAL GAMAL Sayre Count 10-25,000 (Moderate) CFU/ML END OF REPORT * ML=Testing performed at Main Lab DEPARTMENT OF PATHOLOGY, [address] [place] [address] Ilia Almaraz M.D. Director [facility] Permit #[id number] CYTOLOGY SCREENER - PREDICTIVE MAINTENANCE SPECIALIST @ 11/17 Screened by: Saskia Hernandez [facility](ASCP) PAP: FINAL REPORT SPECIMEN ADEQUACY: SPECIMEN SATISFACTORY FOR INTERPRETATION REFLEX HIGH RISK HPV TESTING REQUESTED BY CLINICIAN INTERPRETATION: LOW-GRADE SQUAMOUS INTRAEPITHELIAL LESION COMMENT: COLPOSCOPY WITH CERVICAL \\E&E\\ ENDOCERVICAL BIOPSIES SUGGESTED HIGH RISK HPV TEST ([id number]): POSITIVE THINPREP PREPARED PAP SLIDE # Prepared in the Cytology laboratory from the ThinPrep sample is 1 ThinPrep smear. PAP ACCESSI QUESTIONNAIRE 10/16 PERTINENT CLINICAL HISTORY FOR PAP (PREDICTIVE MAINTENANCE SPECIALIST) CYTOLOGY (Check all that apply): ? Post ? Menopause? LMP date: 07/04/13 Last Pap: at [facility]? Abnormal Pap? Y If Yes, date: 08/04/12 If patient had related surgical procedure: Result: ASCUS, HPV Related Therapy: Significant Clinical History: V76.2 DISCLAIMER: The Pap smear is a screening test and not a diagnostic procedure. False negative and false positive results can and do occur for a number of reasons. Regular screening provides an aid in detecting treatable cervical abnormalities, but should not be used as the only means for detecting cervical dysplasia and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
[2019-03-06 14:07] VITALS: BP 112/79
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
== END 2019-03-06 14:55 | disposition home or self-care (01) ==
LOC: UCCORT 12:15
DX: S30.861A Insect bite (nonvenomous) of abdominal wall, initial encounter (principal); W57.XXXA Bitten or stung by nonvenomous insect and other nonvenomous arthropods, initial encounter; Z87.891 Personal history of nicotine dependence
CPT/HCPCS: 99212; G0463

== ENCOUNTER 2019-12-04 16:11 | Emergency (ER) | payer BC ==
--- OUTSIDE RECORDS SUMMARY | 2019-12-04 16:46 | XMS REPORT ---
:1985 Author Name Lillie Mcclellan Address [address] [place] [address] Care Team Providers Name Role Phone Lillie Mcclellan Unavailable Unavailable PROBLEMS Type Condition ICD9-CM [id number] Onset Condition SNOMED Code Code Code Dates Status Problem Mild cervical N87.0 Active 798441336 dysplasia Problem Pelvic and R10.2 Active 311161097 perineal pain Problem Unspecified lump N63.20 Active [id number] in the left breast, unspecified quadrant Problem Unsatisfactory R87.615 Active 749233317 cytologic smear of cervix Problem Papillomavirus as B97.7 Active 6554512 the cause of diseases classified elsewhere Problem Excessive and N92.0 Active 214592500 frequent menstruation with regular cycle Problem Arcuate uterus 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.810 Active 33609362 Problem Unspecified lump N63.10 Active 94801884290080797 in the right breast, unspecified quadrant Problem 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 103 Oct, Excessive and frequent OBGYN [facility], menstruation with regular [place] [id number] cycle N92.0 [facility] 103 Oct, Excessive and frequent OBGYN [facility], menstruation with regular [place] [id number] cycle N92.0 [facility] 103 Oct, Excessive and frequent OBGYN [facility], menstruation with regular [place] [id number] cycle N92.0 [facility] 103 Sep, Encounter for OBGYN [facility], gynecological examination [place] [id number] (general) (routine) with abnormal findings Z01.411 ; Encounter for screening for malignant neoplasm of cervix Z12.4 ; Mild cervical dysplasia N87.0 and Excessive and frequent menstruation with regular cycle N92.0 [facility] 28 Nov, 2018 [facility]epithelial lesion [place] [id number] cytologic smear of cervix (LGSIL) R87.612 and Unsatisfactory cytologic smear of cervix R87.615 [facility] 103 14 Nov, 2018 OBGYN [facility], [place] [id number] [facility] 14 Nov, 2018 Low grade squamous [facility], intraepithelial lesion [place] [id number] cytologic smear of cervix (LGSIL) R87.612 [facility] 103 Aug, OBGYN [facility], [place] [id number] [facility] 103 Aug, [facility], gynecological examination [place] [id number] (general) (routine) without abnormal findings Z01.419 and Encounter for screening for malignant neoplasm of cervix Z12.4 [facility] 10 Jun, 2018 Anogenital (venereal ) OBGYN [facility], warts A63.0 ; Pelvic and [place] [id number] perineal pain R10.2 and Secondary oligomenorrhea N91.4 [facility] 103 May, Pelvic and perineal pain OBGYN [facility], R10.2 and Secondary [place] [id number] oligomenorrhea N91.4 [facility] 103 May, Pelvic and perineal pain OBGYN [facility], R10.2 and Encounter for [place] [id number] routine checking of intrauterine contraceptive device Z30.431 [facility] 103 Apr, Pelvic and perineal pain OBG[facility], R10.2 [place] [id number] [facility] Apr, OBGYN [facility], [place] [id number] [facility] Apr, OBGYN [facility], [place] [id number] [facility] 103 Apr, Anogenital (venereal ) OBGYN [facility], warts A63.0 and Encounter [place] [id number] for screening for infections with a predominantly sexual mode of transmission Z11.3 [facility] February, Pelvic and perineal pain [facility], R10.2 [place] [id number] [facility] 11 Sep, 2017 Unspecified lump in the OBGYN [facility], left breast, unspecified [place] [id number] quadrant N63.20 and Unspecified lump in the right breast, unspecified quadrant N63.10 [facility] Aug, OBGYN [facility], [place] [id number] [facility] Aug, Encounter for OBGYN [facility], gynecological examination [place] [id number] (general) (routine) without abnormal findings Z01.419 [facility] 103 Aug, Encounter for OBGYN [facility], gynecological examination [place] [id number] (general) (routine) without abnormal findings Z01.419 ; Encounter for screening for infections with a predominantly sexual mode of transmission Z11.3 ; Unspecified lump in the left breast, unspecified quadrant N63.20 ; Unspecified lump in the right breast, unspecified quadrant N63.10 and Disorder of urinary system, unspecified N39.9 [facility] 05 Jul, 2017 [place] [id number] [facility] Jan, Pelvic and [facility]ineal pain [facility], R10.2 [place] [id number] [facility] Aug, [place] [id number] [facility] 103 Aug, Encounter for [facility], gynecological examination [place] [id number] (general) (routine) without abnormal findings Z01.419 and Encounter for screening for infections with a predominantly sexual mode of transmission Z11.3 [facility] Dec, Other specified conditions [facility], associated with female [place] [id number] genital organs and menstrual cycle N94.89 [facility] 103 Aug, Encounter for [facility], gynecological examination [place] [id number] (general) (routine) without abnormal findings Z01.419 and Encounter for screening for malignant neoplasm of cervix Z12.4 [facility] Nov, [place] [id number] [facility] Nov, [place] [id number] [facility] Aug, ROUTINE ACCOUNTS RECEIVABLE REPRESENTATIVE EXAMINATION 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 [facility] 07 Jul, 2014 VULVODYNIA NOS 625.70 OBGYN [place] [id number] [facility] May, Allergic dermatitis due to OBGYN [facility], other non food plant 692.6 [place] [id number] [facility] Jan, OBGYN [place] [id number] [facility] Dec, CERVICAL DYSPLASIA, MILD OBGYN [facility], (LOAN I) 622.11 and Human [place] [id number] papilloma virus 079.4 [facility] 103 Dec, CERVICAL DYSPLASIA, MILD OBGYN [facility], (LOAN I) 622.11 and Human [place] [id number] papilloma virus 079.4 [facility] Nov, OBGYN [place], [place] [id number] [facility] 103 Oct, OBGYN [place], [place] [id number] [facility] Oct, OBG[place] [id number] [facility] Aug, OBG[place] [id number] [facility] Jul, ROUTINE ACCOUNTS RECEIVABLE REPRESENTATIVE EXAMINATION OBGYN [facility], V72.31 and PAP SMEAR W/O [place] [id number] ACCOUNTS RECEIVABLE REPRESENTATIVE EXAM V76.2 [facility] Jun, FAMILY PLANNING V25.09 O[place] [id number] [facility] 103 Mar, STERILIZATION V25.2 [place] [id number] [facility] Mar, STERILIZATION V25.2 [place] [id number] [facility] 06 Mar, 2013 STERILIZATION V25.2 [place], [place] [id number] [facility] 07 Feb, 2013 OBG[place], [place] [id number] [facility] Jan, OBG[place] [id number] [facility] Jan, OBG[place], [place] [id number] [facility] 19 Jan, 2013 STERILIZATION V25.2 and OBGYN [facility], Stenosis of cervix 622.4 [place] [id number] [facility] 16 Jan, 2013 OBGYN [place] [id number] [facility] 14 Jan, 2013 OBG[place], [place] [id number] [facility] 12 Jan, 2013 STERILIZATION V25.2 and OBGYN [facility], Stenosis of cervix 622.[address] [place] [id number] [address] 10 Jan, 2013 FAMILY PLANNING V25.09 [facility] [address] [place], [place] [id number] [facility] Dec, OBGYN [place], [place] [id number] [facility] 11 Dec, 2012 CONTRACEPT SURVEILL NOS OBGYN [facility], V25.40 and FAMILY PLANNING [place] [id number] V25.09 [facility] 13 Sep, 2012 CERVICAL DYSPLASIA, MILD [facility], (LOAN I) 622.11 and FAMILY [place] [id number] PLANNING V25.09 [facility] 29 Aug, 2012 PAP SMEAR (ASC-US) 795.01 [facility], and Human papilloma virus [place] [id number] 079.4 [facility] Aug, OBGYN [place] [id number] [facility] Jul, ROUTINE ACCOUNTS RECEIVABLE REPRESENTATIVE EXAMINATION OBGYN [facility], V72.31 and PAP SMEAR W/O ND [id number] ACCOUNTS RECEIVABLE REPRESENTATIVE EXAM V76.2 [facility] Mar, OBGYN [place], [place] [id number] [facility] 103 Oct, OBGYN [place], [place] [id number] [facility] Oct, Vulvadynia 625.9 and OBGYN [facility], Menorrhagia 626.2 [place] [id number] [facility] Sep, Vulvadynia 625.9 and OBGYN [facility], Ovarian cyst NOS 620.2 [place] [id number] [facility] 103 Sep, Ovarian cyst NOS 620.2 OBGYN [place], [place] [id number] [facility] Aug, Vulvadynia 625.9 OBGYN [place] [id number] [facility] 103 Jul, ROUTINE ACCOUNTS RECEIVABLE REPRESENTATIVE EXAMINATION OBGYN [facility], V72.31 ; PAP SMEAR W/O ACCOUNTS RECEIVABLE REPRESENTATIVE [place] [id number] EXAM V76.2 ; Dysuria 788.1 and Vulvadynia 625.9 [facility] Jul, FAMILY PLANNING V25.09 OBG[place] [id number] [facility] Jul, OBGYN [place], [place] [id number] [facility] May, Ovarian cyst NOS 620.2 ; OBGYN [facility], Bleeding unrelated to [place] [id number] menstrual cycle 626.6 ; Arcuate uterus 752.36 and Amenorrhea 626.0 [facility] May, [place] [id number] [facility] May, Ovarian cyst NOS 620.2 ; OBGYN [facility], Bleeding unrelated to [place] [id number] menstrual cycle 626.6 ; Endometrial polyp 621.0 and Arcuate uterus 752.36 [facility] May, Ovarian cyst NOS 620.2 and OBGYN [facility], Oligomenorrhea 626.1 [place] [id number] [facility] Mar, Bleeding [facility] to [facility], menstrual cycle 626.6 ; [place] [id number] Endometrial polyp 621.0 and Arcuate uterus 752.36 [facility] February, [facility] menstrual cycle 626.6 ; [place] [id number] Endometrial polyp 621.0 ; Arcuate uterus 752.36 and Ovarian cyst NOS 620.2 [facility] February, Ovarian cyst NOS 620.2 [place], [place] [id number] [facility] Dec, [facility], menstrual cycle 626.6 ; [place] [id number] Endometrial polyp 621.0 ; Arcuate uterus 752.36 and Ovarian cyst NOS 620.2 [facility] Dec, Ovarian cyst NOS 620.2 [place] [id number] [place] [address] Nov, [place], [place] [id number] [facility] Nov, [facility], menstrual cycle 626.6 ; [place] [id number] Endometrial polyp 621.0 ; Arcuate uterus 752.36 and Ovarian cyst NOS 620.2 [facility] 103 Oct, Bleeding unrelated to OBGYN [facility], menstrual cycle 626.6 ; [place] [id number] Endometrial polyp 621.0 ; Arcuate uterus 752.36 and Ovarian cyst NOS 620.2 [facility] Oct, Bleeding unrelated to [facility]BGYN [facility], menstrual cycle 626.6 [place] [id number] [facility] Oct, Bleeding unrelated to [facility]BGYN [facility], menstrual cycle 626.6 [place] [id number] [facility] Oct, Bleeding unrelated to [facility]BGYN [facility], menstrual cycle 626.6 [place] [id number] [facility] Oct, Bleeding unrelated to [facility]BG[facility], menstrual cycle 626.6 ; [place] [id number] Endometrial polyp 621.0 and Ovarian cyst NOS 620.2 [facility] 103 Sep, Bleeding unrelated to OBGYN [facility], menstrual cycle 626.6 [place] [id number] [facility] 13 Jun, 2010 ROUTINE ACCOUNTS RECEIVABLE REPRESENTATIVE EXAMINATION [facility], V72.31 ; CONTRACEPT [place] [id number] SURVEILL NOS V25.40 and Bleeding unrelated to menstrual cycle 626.6 [facility] Apr, [place] [id number] [facility] February, [place] [id number] [facility] Jan, ROUT POSTPART FOLLOW -UP [facility], V24.2 ; FAMILY PLANNING [place] [id number] V25.09 and DELIV NOS-UNSP 669.70 [facility] Dec, DELIV NOS- UNSP [facility], 669.70 [place] [id number] [facility] Dec, [place] [id number] [facility] Dec, OBG[place], [place] [id number] [facility] Dec, SCREENING NOS [facility]BGYN [facility], V28.9 [place] [id number] [facility] Nov, SCREENING [facility]BGYN [facility], UNSPEC. V28.9 [place] [id number] [facility] Nov, SCREENING OBGYN [facility], UNSPEC. V28.9 [place] [id number] [facility] Oct, SCREENING OBGYN [facility], UNSPEC. V28.9 [place] [id number] [facility] Oct, SCREENING OBGYN [facility], UNSPEC. V28.9 and Ovarian [place] [id number] cyst NOS 620.2 [facility] Oct, Uterine size-date [facility], discrepancy-antepartum [place] [id number] 646.83 [facility] Oct, OBG[place] [id number] [facility] Oct, O[place] [id number] [facility] Sep, Urinary frequency 788.41 O[place], [place] [id number] [facility] Sep, SCREENING OBGYN [facility], UNSPEC. V28.9 [place] [id number] [facility] Aug, SCREENING OBGYN [facility], UNSPEC. V28.9 [place] [id number] [facility] Aug, US-SCREEN ANOMALIES V28.3 OBGYN [place], [place] [id number] [facility] Jul, SCREENING OBGYN [facility], UNSPEC. V28.9 [place] [id number] [facility] Jun, SCREENING OBGYN [facility], UNSPEC. V28.9 [place] [id number] [facility] May, SCREENING OBGYN [facility], UNSPEC. V28.9 [place] [id number] [facility] May, [place] [id number] [facility] May, [place], [place] [id number] [facility] Apr, Suppression menstruation [facility], 626.8 [place] [id number] IMMUNIZATIONS No Known Immunizations SOCIAL HISTORY Never Assessed REASON FOR REFERRAL FUNCTIONAL STATUS PLAN OF CARE Activity Details Follow Up hystero/EMB, f/u Dr. Mohan, please give lab slip for bloodwork Reason: VITAL SIGNS Height 67 in 2019-09-07 Weight 194 lbs 2019-09-07 BMI 30.38 kg/m2 2019-09-07 Blood pressure systolic 112 mm Hg 2019-09-07 Blood pressure diastolic 80 mm Hg 2019-09-07 MEDICATIONS Medication Instructions Dosage Frequency Start End Date Duration Status Date Ibuprofen 800 mg Oral tid prn 1 tab Active valacyclovir 500 orally once a 1 tab(s) 24h Active mg day Fish Oil 1000 mg orally once a 1 cap(s) 24h Active day Vitamin D3 1000 orally once a 2 tab(s) 24h Active intl units day multivitamin orally once a 1 cap(s) 24h Active Multiple Vitamins day misoprostol 200 orally once with 1 tab(s) 02 Dec, Active mcg dinner night 2018 before appt, once just before bed, once with breakfast morning of appt Vitamin B12 1000 orally once a 1 tab(s) 24h Active mcg day calcium 500 mg orally as needed Active lysine 1000 mg orally once a 1 tab(s) 24h Active day PROCEDURES No Known procedures RESULTS Name Result Date Reference Range TP HighRisk HPV 16/18 2019-09-07 TP HighRisk HPV,16/18 Normal HPV Normal REASON FOR VISIT Annual Insurance Providers [facility] Health Member Patient Patient Patient Patient Patient Subscriber Subscriber Subscriber Group Insurance Plan Plan Plan Plan ID Relationship Address Phone Name Date of ID Name Date of No Type Insurance Insurance Insurance Coverage to Subscriber Address Phone Name Dates Blue Cross [address] Blue Cross self Terri 1985 [id number] [id number] 89 Blue [place] [address] 00 Shield [facility] [address] [employer] [address] [employer] self Terri 1985 [id number] Blue [address] 89 Blue [place] 3 Cross/Blue [place] Cross/Blue [place] Shield [address] Shield Blue Cross [address] Blue Cross self Terri 1985 [id number] Blue [id number] 89 Blue [place] 8 Shield [facility] [place] [address] MEDICAL (GENERAL) HISTORY Type Description Date Medical History acid reflux Medical History cold sores Medical History Migraines with Aura Medical History Arcuate Uterus Medical History kidney isssues proteinuria Medical History frequent UTI'S Medical History lactose intolerant Medical History IBS Medical History Endometrial polyp Surgical History [place] Teeth removed 2003 Surgical History 12/10/2009 Surgical History hysterosocpy D&C polypectomy 11-09-2010 Surgical History ESSURE 01/16/13, 03/13/13 Surgical History vein surgery 03/13/13 Surgical History rotator cuff surgery 2018 Hospitalization History stung by a bee- allergic Hospitalization History see above
--- OUTSIDE RECORDS SUMMARY | 2019-12-04 16:46 | XMS REPORT ---
:1985 Author Organization [facility] Address [address] [place] [address] Care Team Providers Name Role Phone Shyla Mohan Unavailable Unavailable PROBLEMS Type Condition ICD9-CM WFF20-CH Onset Condition SNOMED Code Code Code Dates Status Problem Mild cervical N87.0 Active 205209864 dysplasia Problem Pelvic and R10.2 Active 655073711 perineal pain Problem Unspecified lump N63.20 Active 21796601912339603 in the left breast, unspecified quadrant Problem Unsatisfactory R87.615 Active 550516416 cytologic smear of cervix Problem Papillomavirus as B97.7 Active 9972289 the cause of diseases classified elsewhere Problem Excessive and N92.0 Active 064911906 frequent menstruation with regular cycle Problem Arcuate uterus Q51.810 Active 92445304 Problem Unspecified lump N63.10 Active [id number] in the right breast, unspecified quadrant Problem 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 Problem 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 45618748 oligomenorrhea Problem 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 526213067 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) ALLERGIES Substance Reaction Event Type Date Status Bees anaphylaxis Drug Allergy Oct, Active penicillin hives Drug Allergy Oct, Active ENCOUNTERS Encounter Location Date Diagnosis [facility] [address] Nov, OBGYN [place], [place] [id number] [facility] 103 Oct, [place]BG[place], [place] [id number] [facility] Oct, OBGYN [place] [id number] [facility] Oct, [place]BG[place] [id number] [place] [place] [facility] [address] [facility] Oct, Excessive and frequent [address]BGYN [address] [place], menstruation with regular [place] [id number] cycle N92.0 [facility] 103 Oct, Excessive and frequent OBGYN [facility], menstruation with regular [place] [id number] cycle N92.0 [facility] 103 Oct, Excessive and frequent OBGYN [facility], menstruation with regular [place] [id number] cycle N92.0 [facility] 103 Oct, Excessive and frequent OBGYN [facility], menstruation with regular [place] [id number] cycle N92.0 [facility] Sep, Encounter for [facility], gynecological examination [place] [id number] (general) (routine) with abnormal findings Z01.411 ; Encounter for screening for malignant neoplasm of cervix Z12.4 ; Mild cervical dysplasia N87.0 and Excessive and frequent menstruation with regular cycle N92.0 [facility] 103 Nov, Low grade squamous OBGYN [facility], intraepithelial lesion on [place] [id number] cytologic smear of cervix (LGSIL) R87.612 and Unsatisfactory cytologic smear of cervix R87.615 [facility] 103 Nov, OBGYN [place], [place] [id number] [facility] 103 Nov, Low grade squamous OBGYN [facility], intraepithelial lesion on [place] [id number] cytologic smear of cervix (LGSIL) R87.612 [facility] Aug, OBGYN [facility], [place] [id number] [facility] 103 Aug, Encounter for OBGYN [facility], gynecological examination [place] [id number] (general) (routine) without abnormal findings Z01.419 and Encounter for screening for malignant neoplasm of cervix Z12.4 [facility] 103 10 Jun, 2018 Anogenital (venereal ) OBGYN [facility], warts A63.0 ; Pelvic and [place] [id number] perineal pain R10.2 and Secondary oligomenorrhea N91.4 [facility] 103 May, Pelvic and perineal pain OBGYN [facility], R10.2 and Secondary [place] [id number] oligomenorrhea N91.4 [facility] 103 May, Pelvic and perineal pain OBGYN [facility], R10.2 and Encounter for [place] [id number] routine checking of intrauterine contraceptive device Z30.431 [facility] 103 Apr, Pelvic and perineal pain OBGYN [facility], R10.2 [place] [id number] [facility] Apr, OBGYN [facility], [place] [id number] [facility] Apr, OBGYN [facility], [place] [id number] [facility] 103 Apr, Anogenital (venereal ) [facility]0 and Encounter [place] [id number] for screening for infections with a predominantly sexual mode of transmission Z11.3 [facility] 103 February, Pelvic and perineal pain OBGYN [facility], R10.2 [place] [id number] [facility] 103 Sep, Unspecified lump in the OBGYN [facility], left breast, unspecified [place] [id number] quadrant N63.20 and Unspecified lump in the right breast, unspecified quadrant N63.10 [facility] 103 28 Aug, 2017 OBGYN [place], [place] [id number] [facility] 103 Aug, Encounter for OBGYN [facility], gynecological examination [place] [id number] (general) (routine) without abnormal findings Z01.419 [facility] 103 Aug, Encounter for OBGYN [facility], gynecological examination [place] [id number] (general) (routine) without abnormal findings Z01.419 ; Encounter for screening for infections with a predominantly sexual mode of transmission Z11.3 ; Unspecified lump in the left breast, unspecified quadrant N63.20 ; Unspecified lump in the right breast, unspecified quadrant N63.10 and Disorder of urinary system, unspecified N39.9 [facility] 103 05 Jul, 2017 OBGYN [place], [place] [id number] [facility] 103 12 Jan, 2017 [facility] R10.2 [place] [id number] [facility] 103 14 Aug, 2016 OBGYN [place], [place] [id number] [facility] 103 10 Aug, 2016 Encounter for OBGYN [facility], gynecological examination [place] [id number] (general) (routine) without abnormal findings Z01.419 and Encounter for screening for infections with a predominantly sexual mode of transmission Z11.3 [facility] 103 17 Dec, 2015 Other specified conditions OBN [facility], associated with female [place] [id number] genital organs and menstrual cycle N94.89 [facility] 103 09 Aug, 2015 [facility] examination [place] [id number] (general) (routine) without abnormal findings Z01.419 and Encounter for screening for malignant neoplasm of cervix Z12.4 [facility] 103 Nov, [place]BG[place] [id number] [facility] Nov, [place], [place] [id number] [facility] 103 Aug, 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 EXAMINATION OBGYN [facility], V72.31 ; CERVICAL [place] [id number] DYSPLASIA, MILD (LOAN I) 622.11 ; PAP SMEAR W/O 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 SUPERVISOR EXAM V76.2 and 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 [facility] Jul, VULVODYNIA NOS 625.70 OBGYN [place], [place] [id number] [facility] May, Allergic dermatitis due to OBGYN [facility], other non food plant 692.6 [place] [id number] [facility] 103 Jan, OBGYN [place] [id number] [facility] 103 Dec, CERVICAL DYSPLASIA, MILD OBGYN [facility], (LOAN I) 622.11 and Human [place] [id number] papilloma virus 079.4 [facility] 103 Dec, CERVICAL DYSPLASIA, MILD OBGYN [facility], (LOAN I) 622.11 and Human [place] [id number] papilloma virus 079.4 [facility] 103 Nov, [place]BG[place] [id number] [facility] 103 Oct, [place]BG[place] [id number] [facility] 103 Oct, OBGYN [place], [place] [id number] [facility] 103 Aug, OBG[place], [place] [id number] [facility] 103 30 Jul, 2013 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 SUPERVISOR EXAMINATION OBGYN [facility], V72.31 and PAP SMEAR W/O [place] [id number] 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 SUPERVISOR EXAM V76.2 [facility] 103 09 Jun, 2013 FAMILY PLANNING V25.09 OBGYN [place], [place] [id number] [facility] 103 Mar, STERILIZATION V25.2 [place], [place] [id number] [facility] 103 Mar, STERILIZATION V25.2 [place], [place] [id number] [facility] 103 Mar, STERILIZATION V25.2 [place]YN [place], [place] [id number] [facility] 103 February, OBG[place], [place] [id number] [facility] Jan, [place], [place] [id number] [facility] 103 Jan, OBG[place], [place] [id number] [facility] 103 Jan, STERILIZATION V25.2 and OBGYN [facility], Stenosis of cervix 622.4 [place] [id number] [facility] 103 16 Jan, 2013 OBGYN [place], [place] [id number] [facility] 14 Jan, 2013 OBG[place], [place] [id number] [facility] 103 12 Jan, 2013 STERILIZATION V25.2 and OBGYN [facility], Stenosis of cervix 622.4 [place] [id number] [place] [facility] [address] [place] [address] 10 Jan, 2013 FAMILY PLANNING V25.[address] [place], [place] [id number] [facility] 103 Dec, OBG[place], [place] [id number] [facility] 11 Dec, 2012 CONTRACEPT SURVEILL NOS OBGYN [facility], V25.40 and FAMILY PLANNING [place] [id number] V25.09 [facility] 103 Sep, CERVICAL DYSPLASIA, MILD OBGYN [facility], (LOAN I) 622.11 and FAMILY [place] [id number] PLANNING V25.09 [facility] 103 Aug, PAP SMEAR (ASC-US) 795.01 OBGYN [facility], and Human papilloma virus [place] [id number] 079.4 [facility] Aug, OBGYN [place], [place] [id number] [facility] 103 Jul, ROUTINE 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 SUPERVISOR EXAMINATION OBGYN [facility], V72.31 and PAP SMEAR W/O [place] [id number] 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 SUPERVISOR EXAM V76.2 [facility] 103 Mar, OBG[place], [place] [id number] [facility] 103 Oct, OBG[place], [place] [id number] [facility] 103 Oct, Vulvadynia 625.9 and OBGYN [facility], Menorrhagia 626.2 [place] [id number] [facility] Sep, Vulvadynia 625.9 and OBGYN [facility], Ovarian cyst NOS 620.2 [place] [id number] [facility] 103 Sep, Ovarian cyst NOS 620.2 [place], [place] [id number] [facility] 103 Aug, Vulvadynia 625.9 OBGYN [place], [place] [id number] [facility] 103 Jul, ROUTINE 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 SUPERVISOR EXAMINATION OBGYN [address] [place], V72.31 ; PAP SMEAR W/O 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 SUPERVISOR [place] [id number] EXAM V76.2 ; Dysuria 788.1 and Vulvadynia 625.9 [facility] 103 17 Jul, 2011 FAMILY PLANNING V25.09 [place] [id number] [facility] 103 Jul, [place] [id number] [facility] 103 May, Ovarian cyst NOS 620.2 ; [facility], Bleeding unrelated to [place] [id number] menstrual cycle 626.6 ; Arcuate uterus 752.36 and Amenorrhea 626.0 [facility] 103 May, [place] [id number] [facility] 103 May, Ovarian cyst NOS 620.2 ; [facility], Bleeding unrelated to [place] [id number] menstrual cycle 626.6 ; Endometrial polyp 621.0 and Arcuate uterus 752.36 [facility] May, Ovarian cyst NOS 620.2 and OBGYN [facility], Oligomenorrhea 626.1 [place] [id number] [facility] 103 Mar, Bleeding [facility] to [facility], menstrual cycle 626.6 ; [place] [id number] Endometrial polyp 621.0 and Arcuate uterus 752.36 [facility] February, [facility], menstrual cycle 626.6 ; [place] [id number] Endometrial polyp 621.0 ; Arcuate uterus 752.36 and Ovarian cyst NOS 620.2 [facility] February, Ovarian cyst NOS 620.2 [place] [id number] [facility] 103 Dec, [facility], menstrual cycle 626.6 ; [place] [id number] Endometrial polyp 621.0 ; Arcuate uterus 752.36 and Ovarian cyst NOS 620.2 [facility] Dec, Ovarian cyst NOS 620.2 OBGYN [facility], [place] [id number] [place] [address] Nov, [place], [place] [id number] [facility] Nov, Bleeding unrelated to OBGYN [facility], menstrual cycle 626.6 ; [place] [id number] Endometrial polyp 621.0 ; Arcuate uterus 752.36 and Ovarian cyst NOS 620.2 [facility] Oct, Bleeding unrelated to OBGYN [facility], menstrual cycle 626.6 ; [place] [id number] Endometrial polyp 621.0 ; Arcuate uterus 752.36 and Ovarian cyst NOS 620.2 [facility] Oct, Bleeding unrelated to OBGYN [facility], menstrual cycle 626.6 [place] [id number] [facility] 103 Oct, Bleeding unrelated to OBGYN [facility], menstrual cycle 626.6 [place] [id number] [facility] Oct, Bleeding unrelated to OBGYN [facility], menstrual cycle 626.6 [place] [id number] [facility] Oct, Bleeding unrelated to OBGYN [facility], menstrual cycle 626.6 ; [place] [id number] Endometrial polyp 621.0 and Ovarian cyst NOS 620.2 [facility] Sep, Bleeding unrelated to OBGYN [facility], menstrual cycle 626.6 [place] [id number] [facility] Jun, ROUTINE 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 SUPERVISOR EXAMINATION OBGYN [facility], V72.31 ; CONTRACEPT [place] [id number] [place] NOS V25.40 and Bleeding unrelated to menstrual cycle 626.6 [facility] 103 Apr, OBGYN [place], [place] [id number] [facility] February, OBGYN [place], [place] [id number] [facility] 103 Jan, ROUT POSTPART FOLLOW -UP OBGYN [facility], V24.2 ; FAMILY PLANNING [place] [id number] V25.09 and DELIV NOS-UNSP 669.70 [facility] 103 Dec, DELIV NOS- UNSP OBGYN [facility], 669.70 [place] [id number] [facility] 103 Dec, OBG[place] [id number] [facility] Dec, OBG[place], [place] [id number] [facility] 103 Dec, SCREENING NOS OBGYN [facility], V28.9 [place] [id number] [facility] 103 Nov, SCREENING OBGYN [facility], UNSPEC. V28.9 [place] [id number] [facility] 103 Nov, SCREENING OBGYN [facility], UNSPEC. V28.9 [place] [id number] [facility] 103 Oct, SCREENING OBGYN [facility], UNSPEC. V28.9 [place] [id number] [facility] 103 Oct, SCREENING OBGYN [facility], UNSPEC. V28.9 and Ovarian [place] [id number] cyst NOS 620.2 [facility] 103 Oct, Uterine size-date OBGYN [facility], discrepancy-antepartum [place] [id number] 646.83 [facility] 103 Oct, [place], [place] [id number] [facility] 103 Oct, OBG[place], [place] [id number] [facility] 103 Sep, Urinary frequency 788.41 OBGYN [place], [place] [id number] [facility] 103 Sep, SCREENING OBGYN [facility], UNSPEC. V28.9 [place] [id number] [facility] 103 Aug, SCREENING OBGYN [facility], UNSPEC. V28.9 [place] [id number] [facility] 103 Aug, US-SCREEN ANOMALIES V28.3 OBGYN [place], [place] [id number] [facility] 103 Jul, SCREENING OBGYN [facility], UNSPEC. V28.9 [place] [id number] [facility] 103 Jun, SCREENING OBGYN [facility], UNSPEC. V28.9 [place] [id number] [facility] 103 May, SCREENING OBGYN [facility], UNSPEC. V28.9 [place] [id number] [facility] 103 May, OBG[place], [place] [id number] [facility] 103 May, OBG[place], [place] [id number] [facility] 103 Apr, Suppression menstruation OBGYN [facility], 626.8 [place] [id number] IMMUNIZATIONS No Known Immunizations SOCIAL HISTORY Never Assessed REASON FOR REFERRAL FUNCTIONAL STATUS PLAN OF CARE Activity Details Follow Up Schedule in [facility] hysteroscopy, D&C Reason: VITAL SIGNS Height 67 in 2019-10-29 Weight 194 lbs 2019-10-29 BMI 30.38 kg/m2 2019-10-29 Blood pressure systolic 120 mm Hg 2019-10-29 Blood pressure diastolic 78 mm Hg 2019-10-29 MEDICATIONS Medication Instructions Dosage Frequency Start End Date Duration Status Date calcium 500 mg orally as needed Active lysine 1000 mg orally once a 1 tab(s) 24h Active day Vitamin D3 1000 orally once a 2 tab(s) 24h Active intl units day valacyclovir 500 orally once a 1 tab(s) 24h Active mg day multivitamin orally once a 1 cap(s) 24h Active Multiple Vitamins day Vitamin B12 1000 orally once a 1 tab(s) 24h Active mcg day Fish Oil 1000 mg orally once a 1 cap(s) 24h Active day PROCEDURES No Known procedures RESULTS No Results REASON FOR VISIT EMB Hystero Follow up , pt states she's feeling well..no cramping or bleeding, Consider in office hysteroscopy 11-04-19, if feasible Insurance Providers [facility] Member Patient Patient Patient Patient Patient Subscriber Subscriber Subscriber Group Insurance Plan Plan Plan Plan ID Relationship Address Phone Name Date of ID Name Date of No Type Insurance Insurance Insurance Coverage to Subscriber Address Phone Name Dates [employer] [phone] Blue Cross self Terri 1985 [id number] Blue [id number] [facility] [address] Blue Cross [phone] Blue [employer] self Terri [id number] [address] [place] [address] [employer] [phone] [employer] self Terri [id number] Blue [phone] 89 [address] [place] [address] Cross/Blue [place] Cross/Blue n Shield [address] [facility] MEDICAL (GENERAL) HISTORY Type Description Date Medical History acid reflux Medical History cold sores Medical History Migraines with Aura Medical History Arcuate Uterus Medical History kidney isssues proteinuria Medical History frequent UTI'S Medical History lactose intolerant Medical History IBS Medical History Endometrial polyp Surgical History Carteret Teeth removed 2003 Surgical History 12/10/2009 Surgical History hysterosocpy D&C polypectomy 11-09-2010 Surgical History ESSURE 01/16/13, 03/13/13 Surgical History vein surgery 03/13/13 Surgical History rotator cuff surgery 2018 Hospitalization History stung by a bee- allergic Hospitalization History see above
--- OUTSIDE RECORDS SUMMARY | 2019-12-04 16:46 | XMS REPORT ---
:1985 Author Organization [facility] Address [address] [place] [address] Care Team Providers Name Role Phone Shyla Mohan Unavailable Unavailable PROBLEMS Type Condition ICD9-CM [id number] Onset Condition SNOMED Code Code Code Dates Status Problem Mild cervical N87.0 Active 122783030 dysplasia Problem Pelvic and R10.2 Active 425190272 perineal pain Problem Unspecified lump N63.20 Active [id number] in the left breast, unspecified quadrant Problem Unsatisfactory R87.615 Active 428253521 cytologic smear of cervix Problem Papillomavirus as B97.7 Active 6643264 the cause of diseases classified elsewhere Problem Excessive and N92.0 Active 235962988 frequent menstruation with regular cycle Problem Arcuate uterus Q51.810 Active 19815824 Problem Unspecified lump N63.10 Active [id number] in the right breast, unspecified quadrant Problem 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, menstruation with regular [place] [id number] cycle N92.0 [facility] 103 Oct, Excessive and frequent OBGYN [facility], menstruation with regular [place] [id number] cycle N92.0 [facility] 103 Oct, Excessive and frequent OBGYN [facility], menstruation with regular [place] [id number] cycle N92.0 [facility] 103 Oct, OBGYN [facility], [place] [id number] [place] [facility] [address] [facility] Oct, Excessive and frequent OBGYN [facility] [address] [place], menstruation with regular [place] [id number] cycle N92.0 [facility] 103 Oct, Excessive and frequent OBGYN [facility], menstruation with regular [place] [id number] cycle N92.0 [facility] 103 Oct, Excessive and frequent OBGYN [facility], menstruation with regular [place] [id number] cycle N92.0 [facility] 103 Oct, Excessive and frequent OBGYN [facility], menstruation with regular [place] [id number] cycle N92.0 [facility] [place] [facility] 103 Sep, [facility] examination [place] [id number] (general) (routine) with abnormal findings Z01.411 ; Encounter for screening for malignant neoplasm of cervix Z12.4 ; Mild cervical dysplasia N87.0 and Excessive and frequent menstruation with regular cycle N92.0 [facility] 103 28 Nov, 2018 Low grade squamous OBGYN [facility], intraepithelial lesion on [place] [id number] cytologic smear of cervix (LGSIL) R87.612 and Unsatisfactory cytologic smear of cervix R87.615 [facility] [place] [facility] 103 14 Nov, 2018 OBGYN [facility], [place] [id number] [facility] 14 Nov, 2018 Low grade squamous OBGYN [facility], intraepithelial lesion [place] [id number] cytologic smear of cervix (LGSIL) R87.612 [facility] 16 Aug, 2018 OBGYN [facility], [place] [id number] [facility] Aug, Encounter for OBGYN [facility], gynecological examination [place] [id number] (general) (routine) without abnormal findings Z01.419 and Encounter for screening for malignant neoplasm of cervix Z12.4 [facility] 103 10 Jun, 2018 Anogenital (venereal ) OBGYN [facility], warts A63.0 ; Pelvic and [place] [id number] perineal pain R10.2 and Secondary oligomenorrhea N91.4 [facility] 103 May, Pelvic and perineal pain OBGYN [facility], R10.2 and Secondary [place] [id number] oligomenorrhea N91.4 [facility] May, Pelvic and perineal pain OBGYN [facility], R10.2 and Encounter for [place] [id number] routine checking of intrauterine contraceptive device Z30.431 [facility] 103 Apr, Pelvic and perineal pain OBGYN [facility], R10.2 [place] [id number] [facility] Apr, [place] [id number] [facility] Apr, [place] [id number] [facility] 103 Apr, Anogenital (venereal ) OBGYN [facility], warts A63.0 and Encounter [place] [id number] for screening for infections with a predominantly sexual mode of transmission Z11.3 [facility] 103 22 May, 2018 [facility] R10.2 [place] [id number] [facility] [place] [facility] 103 Sep, Unspecified lump in the OBGYN [facility], left breast, unspecified [place] [id number] quadrant N63.20 and Unspecified lump in the right breast, unspecified quadrant N63.10 [facility] 103 Aug, [place] [id number] [facility] 103 Aug, [facility], gynecological examination [place] [id number] (general) (routine) without abnormal findings Z01.419 [facility] 103 Aug, [facility], gynecological examination [place] [id number] (general) (routine) without abnormal findings Z01.419 ; Encounter for screening for infections with a predominantly sexual mode of transmission Z11.3 ; Unspecified lump in the left breast, unspecified quadrant N63.20 ; Unspecified lump in the right breast, unspecified quadrant N63.10 and Disorder of urinary system, unspecified N39.9 [facility] 103 05 Jul, 2017 [place] [id number] [facility] 103 Jan, Pelvic and perineal pain [facility], R10.2 [place] [id number] [facility] 103 14 Aug, 2016 [place] [id number] [facility] 103 10 Aug, 2016 [facility], gynecological examination [place] [id number] (general) (routine) without abnormal findings Z01.419 and Encounter for screening for infections with a predominantly sexual mode of transmission Z11.3 [facility] 103 Dec, Other specified conditions [facility], associated with female [place] [id number] genital organs and menstrual cycle N94.89 [facility] 103 Aug, [facility], gynecological examination [place] [id number] (general) (routine) without abnormal findings Z01.419 and Encounter for screening for malignant neoplasm of cervix Z12.4 [facility] 103 17 Nov, 2014 [place] [id number] [facility] 103 Nov, [place] [id number] [facility] 103 Aug, ROUTINE GREENS PICKER EXAMINATION OBN 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, other non food plant 692.6 [place] [id number] [facility] 103 Jan, [place] [id number] [facility] 103 Dec, CERVICAL DYSPLASIA, MILD OBGYN [facility], (LOAN I) 622.11 and Human [place] [id number] papilloma virus 079.4 [facility] 103 Dec, CERVICAL DYSPLASIA, MILD OBGYN [facility], (LOAN I) 622.11 and Human [place] [id number] papilloma virus 079.4 [facility] 103 Nov, [place] [id number] [facility] 103 Oct, [place] [id number] [facility] 103 20 Oct, 2013 [place] [id number] [facility] 103 Aug, [place] [id number] [facility] 103 30 Jul, 2013 ROUTINE GREENS PICKER EXAMINATION OBGYN [facility], V72.31 and PAP SMEAR W/O [place] [id number] [employer] EXAM V76.2 [facility] 103 09 Jun, 2013 FAMILY PLANNING V25.09 [place] [id number] [facility] 103 24 Mar, 2013 STERILIZATION V25.2 [place] [id number] [facility] 103 07 Mar, 2013 STERILIZATION V25.2 [place] [id number] [facility] 103 Mar, STERILIZATION V25.2 [place] [id number] [facility] 103 February, [place] [id number] [facility] 103 Jan, [place] [id number] [facility] 103 Jan, [place] [id number] [facility] 103 Jan, STERILIZATION V25.2 and OBGYN [facility], Stenosis of cervix 622.4 [place] [id number] [facility] 103 16 Jan, 2013 [place] [id number] [facility] [facility] 103 14 Jan, 2013 [place] [id number] [facility] 103 12 Jan, 2013 STERILIZATION V25.2 and OBGYN [facility], Stenosis of cervix 622.4 [place] [id number] [facility] [address] [facility] 10 Jan, 2013 FAMILY PLANNING V25.[address] [place], [place] [id number] [facility] 11 Dec, 2012 [place] [id number] [facility] 11 Dec, 2012 CONTRACEPT SURVEILL NOS OBGYN [facility], V25.40 and FAMILY PLANNING [place] [id number] V25.09 [facility] 13 Sep, 2012 CERVICAL DYSPLASIA, MILD [facility], (LOAN I) 622.11 and FAMILY [place] [id number] PLANNING V25.09 [facility] 103 29 Aug, 2012 PAP SMEAR (ASC-US) 795.01 [facility], and Human papilloma virus [place] [id number] 079.4 [facility] 103 07 Aug, 2012 [place] [id number] [facility] 29 Jul, 2012 ROUTINE GREENS PICKER EXAMINATION [facility], V72.31 and PAP SMEAR W/O [place] [id number] GREENS PICKER EXAM V76.2 [facility] 103 29 Mar, 2012 [place] [id number] [facility] 103 Oct, [place] [id number] [facility] 103 Oct, Vulvadynia 625.9 and OBGYN [facility], Menorrhagia 626.2 [place] [id number] [facility] 103 Sep, Vulvadynia 625.9 and OBGYN [facility], Ovarian cyst NOS 620.2 [place] [id number] [facility] 103 Sep, Ovarian cyst NOS 620.2 [place] [id number] [facility] 14 Aug, 2011 Vulvadynia 625.9 [place] [id number] [facility] 103 24 Jul, 2011 ROUTINE GREENS PICKER EXAMINATION [facility], V72.31 ; PAP SMEAR W/O GRE[place] PICKER [place] [id number] EXAM V76.2 ; Dysuria 788.1 and Vulvadynia 625.9 [facility] 103 17 Jul, 2011 FAMILY PLANNING V25.09 [place] [id number] [facility] Jul, [place] [id number] [facility] 103 May, Ovarian cyst NOS 620.2 ; [facility], Bleeding unrelated to [place] [id number] menstrual cycle 626.6 ; Arcuate uterus 752.36 and Amenorrhea 626.0 [place] [facility] 103 May, [place] [id number] [facility] 103 May, Ovarian cyst NOS 620.2 ; OBGYN [facility], Bleeding unrelated to [place] [id number] menstrual cycle 626.6 ; Endometrial polyp 621.0 and Arcuate uterus 752.36 [place] [facility] 103 May, Ovarian cyst NOS 620.2 and OBGYN [facility], Oligomenorrhea 626.1 [place] [id number] [facility] [place] [facility] 103 Mar, Bleeding unrelated to OBGYN [facility], menstrual cycle 626.6 ; [place] [id number] Endometrial polyp 621.0 and Arcuate uterus 752.36 [facility] [place] [facility] 103 February, Bleeding unrelated to OBGYN [facility], menstrual cycle 626.6 ; [place] [id number] Endometrial polyp 621.0 ; Arcuate uterus 752.36 and Ovarian cyst NOS 620.2 [facility] 103 February, Ovarian cyst NOS 620.2 [place] [id number] [facility] 103 Dec, Bleeding unrelated to OBGYN [facility], menstrual cycle 626.6 ; [place] [id number] Endometrial polyp 621.0 ; Arcuate uterus 752.36 and Ovarian cyst NOS 620.2 [facility] 103 Dec, Ovarian cyst NOS 620.2 [place] [id number] [place] [address] Nov, [place] [id number] [facility] 103 Nov, Bleeding unrelated to OBGYN [facility], menstrual cycle 626.6 ; [place] [id number] Endometrial polyp 621.0 ; Arcuate uterus 752.36 and Ovarian cyst NOS 620.2 [facility] 103 Oct, Bleeding unrelated to OBGYN [facility], menstrual cycle 626.6 ; [place] [id number] Endometrial polyp 621.0 ; Arcuate uterus 752.36 and Ovarian cyst NOS 620.2 [facility] Oct, Bleeding unrelated to OBGYN [facility], menstrual cycle 626.6 [place] [id number] [facility] 103 Oct, Bleeding unrelated to OBGYN [facility], menstrual cycle 626.6 [place] [id number] [facility] 103 Oct, Bleeding unrelated to OBGYN [facility], menstrual cycle 626.6 [place] [id number] [facility] 103 Oct, Bleeding unrelated to OBGYN [facility], menstrual cycle 626.6 ; [place] [id number] Endometrial polyp 621.0 and Ovarian cyst NOS 620.2 [facility] 103 Sep, Bleeding unrelated to OBGYN [facility], menstrual cycle 626.6 [place] [id number] [facility] 103 13 Jun, 2010 ROUTINE GREENS PICKER EXAMINATION OBGYN [facility], V72.31 ; CONTRACEPT [place] [id number] SURVEILL NOS V25.40 and Bleeding unrelated to menstrual cycle 626.6 [facility] 08 Apr, 2010 [place] [id number] [facility] February, [place] [id number] [facility] 103 Jan, ROUT POSTPART FOLLOW -UP OBGYN [facility], V24.2 ; FAMILY PLANNING [place] [id number] V25.09 and DELIV NOS-UNSP 669.70 [facility] 103 Dec, DELIV NOS- UNSP OBGYN [facility], 669.70 [place] [id number] [facility] 103 Dec, [place] [id number] [facility] 103 Dec, [place] [id number] [facility] 103 Dec, SCREENING NOS OBGYN [facility], V28.9 [place] [id number] [facility] Nov, SCREENING OBGYN [facility], UNSPEC. V28.9 [place] [id number] [facility] Nov, SCREENING OBGYN [facility], UNSPEC. V28.9 [place] [id number] [facility] [place] [facility] 103 Oct, SCREENING OBGYN [facility], UNSPEC. V28.9 [place] [id number] [facility] [place] [facility] 103 Oct, SCREENING OBGYN [facility], UNSPEC. V28.9 and Ovarian [place] [id number] cyst NOS 620.2 [facility] [place] [facility] 103 Oct, Uterine size-date OBGYN [facility], discrepancy-antepartum [place] [id number] 646.83 [place] [facility] 103 Oct, [place] [id number] [facility] [place] [facility] 103 Oct, [place] [id number] [facility] [place] [facility] 103 Sep, Urinary frequency 788.41 [place] [id number] [facility] 103 Sep, SCREENING OBGYN [facility], UNSPEC. V28.9 [place] [id number] [facility] [place] [facility] 103 Aug, SCREENING OBGYN [facility], UNSPEC. V28.9 [place] [id number] [facility] [place] [facility] 103 Aug, US-SCREEN ANOMALIES V28.3 [place] [id number] [facility] 103 Jul, SCREENING OBGYN [facility], UNSPEC. V28.9 [place] [id number] [facility] [place] [facility] 103 Jun, SCREENING OBGYN [facility], UNSPEC. V28.9 [place] [id number] [facility] [place] [facility] 103 May, SCREENING OBGYN [facility], UNSPEC. V28.9 [place] [id number] [facility] [place] [facility] 103 May, [place] [id number] [facility] 103 May, [place] [id number] [facility] 103 Apr, Suppression menstruation OBGYN [facility], 626.8 [place] [id number] IMMUNIZATIONS No Known Immunizations SOCIAL HISTORY Never Assessed REASON FOR REFERRAL FUNCTIONAL STATUS PLAN OF CARE Activity Details Follow Up F/u 3 mo to reassess AUB on Lysteda. Reason: VITAL SIGNS Height 67 in 2019-11-16 Weight 195 lbs 2019-11-16 BMI 30.54 kg/m2 2019-11-16 Blood pressure systolic 120 mm Hg 2019-11-16 Blood pressure diastolic 70 mm Hg 2019-11-16 MEDICATIONS Medication Instructions Dosage Frequency Start End Date Duration Status Date Vitamin B12 1000 orally once a 1 tab(s) 24h Active mcg day calcium 500 mg orally as needed Active Fish Oil 1000 mg orally once a 1 cap(s) 24h Active day Cytotec 200 mcg orally 1 tab at 1 tab(s) 24 Oct, dinner night 2019 before procedure, 1 tab at bedtime night before procedure, 1 tab at 6 AM day of procedure Lysteda 650 mg orally 3 times a 2 tab(s) 8h Nov, day(s) Active day 2019 multivitamin orally once a 1 cap(s) 24h Active Multiple Vitamins day valacyclovir 500 orally once a 1 tab(s) 24h Active mg day Vitamin D3 1000 orally once a 2 tab(s) 24h Active intl units day lysine 1000 mg orally once a 1 tab(s) 24h Active day PROCEDURES No Known procedures RESULTS No Results REASON FOR VISIT post op Insurance Providers [facility] Member Patient Patient Patient Patient Patient Subscriber Subscriber Subscriber Group Insurance Plan Plan Plan Plan ID Relationship Address Phone Name Date of ID Name Date of No Type Insurance Insurance Insurance Coverage to Subscriber Address Phone Name Dates Blue [employer] [address] Blue Cross self Terri 1985 [id number] 89 [address] [place] [address] [place] [address] Blue Cross [address]- Blue Cross self Terri 1985 [id number] Blue [id number] 89 Blue [place] [address] [place] [address] [employer] [address] [employer] self Terri 1985 [id number] Blue [address]2265 89 Blue [place] 3 Cross/Blue [place] Cross/Blue [place] Shield [address] Shield MEDICAL (GENERAL) HISTORY Type Description Date Medical History acid reflux Medical History cold sores Medical History Migraines with Aura Medical History Arcuate Uterus Medical History kidney isssues proteinuria Medical History frequent UTI'S Medical History lactose intolerant Medical History IBS Medical History Endometrial polyp Surgical History Anderson Teeth removed 2003 Surgical History 12/10/2009 Surgical History hysterosocpy D&C polypectomy 11-09-2010 Surgical History ESSURE 01/16/13, 03/13/13 Surgical History vein surgery 03/13/13 Surgical History rotator cuff surgery 2019 Hospitalization History stung by a bee- allergic Hospitalization History see above
--- OUTSIDE RECORDS SUMMARY | 2019-12-04 16:46 | XMS REPORT ---
:1985 Author Name Lillie Mcclellan Address [address] [place] [address] Care Team Providers Name Role Phone Lillie Mcclellan Unavailable Unavailable PROBLEMS Type Condition ICD9-CM [id number] Onset Condition SNOMED Code Code Code Dates Status Problem Mild cervical N87.0 Active 449488508 dysplasia Problem Pelvic and R10.2 Active 234409332 perineal pain Problem Unspecified lump N63.20 Active [id number] in the left breast, unspecified quadrant Problem Unsatisfactory R87.615 Active 214699064 cytologic smear of cervix Problem Papillomavirus as B97.7 Active 0656066 the cause of diseases classified elsewhere Problem Excessive and N92.0 Active 849847201 frequent menstruation with regular cycle Problem Arcuate uterus Q51.810 Active 05110080 Problem Unspecified lump N63.10 Active [id number] in the right breast, unspecified quadrant Problem 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 Problem 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 75634218 oligomenorrhea Problem 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) ALLERGIES Substance Reaction Event Type Date Status Bees anaphylaxis Drug Allergy Oct, Active penicillin hives Drug Allergy Oct, Active ENCOUNTERS Encounter Location Date Diagnosis [address] Oct, [address] [place], [place] [id number] [facility] 103 Oct, Excessive and frequent OBGYN [facility], menstruation with regular [place] 37[address] cycle N92.0 [facility] Oct, Excessive and frequent OBGYN [facility], menstruation with regular [place] 8225[address]309 cycle N92.0 [place] [facility] 103 Oct, Excessive and frequent OBGYN [facility], menstruation with regular [place] 943213044 cycle N92.[address] [facility] Sep, Encounter for OBGYN [facility], gynecological examination [place] [id number] (general) (routine) with abnormal findings Z01.411 ; Encounter for screening for malignant neoplasm of cervix Z12.4 ; Mild cervical dysplasia N87.0 and Excessive and frequent menstruation with regular cycle N92.0 [place] [facility] 103 28 Nov, 2018 [facility] intraepithelial [place] on [place] [id number] cytologic smear of cervix (LGSIL) R87.612 and Unsatisfactory cytologic smear of cervix R87.615 [facility] 103 14 Nov, 2018 OBGYN [facility], [place] [id number] [facility] 14 Nov, 2018 Low grade squamous [facility], intraepithelial lesion on [place] [id number] cytologic smear of cervix (LGSIL) R87.612 [facility] Aug, OBGYN [facility], [place] [id number] [place] [facility] 103 Aug, [facility], gynecological examination [place] [id number] (general) (routine) without abnormal findings Z01.419 and Encounter for screening for malignant neoplasm of cervix Z12.4 [facility] 10 Jun, 2018 Anogenital (venereal ) OBGYN [facility], warts A63.0 ; Pelvic and [place] [id number] perineal pain R10.2 and Secondary oligomenorrhea N91.4 [place] [facility] 103 May, Pelvic and perineal pain [facility], R10.2 and Secondary [place] [id number] oligomenorrhea N91.4 [place] [facility] 103 May, Pelvic and perineal pain [facility], R10.2 and Encounter for [place] [id number] routine checking of intrauterine contraceptive device Z30.431 [place] [facility] 103 Apr, Pelvic and perineal pain [facility], R10.2 [place] [id number] [facility] [facility] Apr, OBGYN [facility], [place] [id number] [facility] [facility] 103 Apr, OBGYN [facility], [place] [id number] [facility] [facility] 103 Apr, Anogenital (venereal ) OBGYN [facility], warts A63.0 and Encounter [place] [id number] for screening for infections with a predominantly sexual mode of transmission Z11.3 [place] [facility] 103 February, Pelvic and perineal pain [facility], R10.2 [place] [id number] [facility] [facility] 11 Sep, 2017 Unspecified lump in the OBG[facility], left breast, unspecified [place] [id number] quadrant N63.20 and Unspecified lump in the right breast, unspecified quadrant N63.10 [place] [facility] 103 Aug, OBGYN [facility], [place] [id number] [facility] [facility] 103 Aug, Encounter for OBGYN [facility], gynecological examination [place] [id number] (general) (routine) without abnormal findings Z01.419 [place] [facility] 103 Aug, Encounter for OBG[facility], gynecological examination [place] [id number] (general) (routine) without abnormal findings Z01.419 ; Encounter for screening for infections with a predominantly sexual mode of transmission Z11.3 ; Unspecified lump in the left breast, unspecified quadrant N63.20 ; Unspecified lump in the right breast, unspecified quadrant N63.10 and Disorder of urinary system, unspecified N39.9 [place] [facility] 05 Jul, 2017 [place] [id number] [facility] [facility] Jan, [facility]al [facility], R10.2 [place] [id number] [place] [facility] Aug, [place] [id number] [place] [facility] 103 Aug, Encounter for [facility], gynecological examination [place] [id number] (general) (routine) without abnormal findings Z01.419 and Encounter for screening for infections with a predominantly sexual mode of transmission Z11.3 [place] [facility] Dec, Other specified conditions [facility], associated with female [place] [id number] genital organs and menstrual cycle N94.89 [place] [facility] Aug, Encounter for [facility], gynecological examination [place] [id number] (general) (routine) without abnormal findings Z01.419 and Encounter for screening for malignant neoplasm of cervix Z12.4 [place] [facility] Nov, [place] [id number] [facility] [facility] Nov, [place] [id number] [place] [facility] Aug, ROUTINE GAS LINE SERVICER EXAMINATION [facility], V72.31 ; CERVICAL [place] [id number] DYSPLASIA, MILD (LOAN I) 622.11 ; PAP SMEAR W/O GAS LINE SERVICER EXAM V76.2 and 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 [place] [facility] 07 Jul, 2014 VULVODYNIA NOS 625.70 [facility] [id number] [facility] [facility] May, Allergic dermatitis due to OBGYN [facility], other non food plant 692.6 [place] [id number] [place] [facility] Jan, [place] [id number] [facility] [facility] Dec, CERVICAL DYSPLASIA, MILD [facility], (LOAN I) 622.11 and Human [place] [id number] papilloma virus 079.4 [place] [facility] Dec, CERVICAL DYSPLASIA, MILD [facility], (LOAN I) 622.11 and Human [place] [id number] papilloma virus 079.4 [place] [facility] Nov, [place] [id number] [facility] [facility] Oct, [place] [id number] [facility] [facility] 103 Oct, [place] [id number] [facility] [facility] Aug, [place] [id number] [facility] [facility] Jul, ROUTINE GAS LINE SERVICER EXAMINATION [facility], V72.31 and PAP SMEAR W/O [place] [id number] GAS LINE SERVICER EXAM V76.2 [place] [facility] Jun, FAMILY PLANNING V25.09 [place] [id number] [facility] [facility] Mar, STERILIZATION V25.2 [facility] [id number] [facility] [facility] Mar, STERILIZATION V25.2 [facility] [id number] [facility] 06 Mar, 2013 STERILIZATION V25.2 [place] [id number] [facility] [facility] 07 Feb, 2013 [place], [place] [id number] [facility] [facility] Jan, [place] [id number] [facility] Jan, [place] [id number] [facility] [facility] 19 Jan, 2013 STERILIZATION V25.2 and OBGYN [facility], Stenosis of cervix 622.4 [place] [id number] [place] [facility] 16 Jan, 2013 [place] [id number] [facility] [facility] 14 Jan, 2013 O[place], [place] [id number] [facility] 12 Jan, 2013 STERILIZATION V25.2 and OBGYN [facility], Stenosis of cervix 622.[address] [place] [id number] [address] 10 Jan, 2013 FAMILY PLANNING V25.[address] [facility] [address] [place], [place] [id number] [place] [facility] Dec, [place] [id number] [facility] 11 Dec, 2012 CONTRACEPT SURVEILL NOS OBGYN [facility], V25.40 and FAMILY PLANNING [place] [id number] V25.09 [place] [facility] 13 Sep, 2012 CERVICAL DYSPLASIA, MILD [facility], (LOAN I) 622.11 and FAMILY [place] [id number] PLANNING V25.09 [place] [facility] 29 Aug, 2012 PAP SMEAR (ASC-US) 795.01 [facility], and Human papilloma virus [place] [id number] 079.4 [place] [facility] Aug, OBG[place] [id number] [facility] [facility] Jul, ROUTINE GAS LINE SERVICER EXAMINATION [facility], V72.31 and PAP SMEAR W/O [place] [id number] GAS LINE SERVICER EXAM V76.2 [place] [facility] Mar, [place] [id number] [facility] [facility] Oct, [place] [id number] [facility] [facility] Oct, Vulvadynia 625.9 and OBGYN [facility], Menorrhagia 626.2 [place] [id number] [place] [facility] Sep, Vulvadynia 625.9 and OBGYN [facility], Ovarian cyst NOS 620.2 [place] [id number] [place] [facility] Sep, Ovarian cyst NOS 620.2 [place] [id number] [place] [facility] Aug, Vulvadynia 625.9 [facility] [id number] [place] [facility] Jul, ROUTINE GAS LINE SERVICER EXAMINATION O[facility], V72.31 ; PAP SMEAR W/O GAS LINE SERVICER [place] [id number] EXAM V76.2 ; Dysuria 788.1 and Vulvadynia 625.9 [place] [facility] Jul, FAMILY PLANNING V25.09 [place] [id number] [facility] [facility] Jul, [place] [id number] [place] [facility] May, Ovarian cyst NOS 620.2 ; OBGYN [facility], Bleeding unrelated to [place] [id number] menstrual cycle 626.6 ; Arcuate uterus 752.36 and Amenorrhea 626.0 [facility] May, [place] [id number] [facility] May, Ovarian cyst NOS 620.2 ; OBGYN [facility], Bleeding unrelated to [place] [id number] menstrual cycle 626.6 ; Endometrial polyp 621.0 and Arcuate uterus 752.36 [place] [facility] May, Ovarian cyst NOS 620.2 and OBGYN [facility], Oligomenorrhea 626.1 [place] [id number] [facility] Mar, [facility]eding [facility] to [facility], menstrual cycle 626.6 ; [place] [id number] Endometrial polyp 621.0 and Arcuate uterus 752.[address] February, [facility], menstrual cycle 626.6 ; [place] [id number] Endometrial polyp 621.0 ; Arcuate uterus 752.36 and Ovarian cyst NOS 620.2 [facility] February, Ovarian cyst NOS 620.2 [place] [id number] [facility] Dec, [facility], menstrual cycle 626.6 ; [place] [id number] Endometrial polyp 621.0 ; Arcuate uterus 752.36 and Ovarian cyst NOS 620.2 [place] [facility] Dec, Ovarian cyst NOS 620.2 [place] [id number] [place] [address] Nov, [place], [place] [id number] [facility] Nov, [facility], menstrual cycle 626.6 ; [place] [id number] Endometrial polyp 621.0 ; Arcuate uterus 752.36 and Ovarian cyst NOS 620.2 [place] [facility] 103 Oct, Bleeding unrelated to OBGYN [facility], menstrual cycle 626.6 ; [place] [id number] Endometrial polyp 621.0 ; Arcuate uterus 752.36 and Ovarian cyst NOS 620.2 [place] [facility] Oct, Bleeding unrelated to [facility]BGYN [facility], menstrual cycle 626.6 [place] [id number] [place] [facility] Oct, Bleeding unrelated to [facility]BG[facility], menstrual cycle 626.6 [place] [id number] [place] [facility] Oct, Bleeding unrelated to [facility]BG[facility], menstrual cycle 626.6 [place] [id number] [place] [facility] Oct, Bleeding unrelated to [facility]BG[facility], menstrual cycle 626.6 ; [place] [id number] Endometrial polyp 621.0 and Ovarian cyst NOS 620.2 [facility] Sep, Bleeding unrelated to OBGYN [facility], menstrual cycle 626.6 [place] [id number] [facility] 13 Jun, 2010 ROUTINE GAS LINE SERVICER EXAMINATION [facility], V72.31 ; CONTRACEPT [place] [id number] SURVEILL NOS V25.40 and Bleeding unrelated to menstrual cycle 626.6 [facility] Apr, [place] [id number] [facility] February, [place] [id number] [facility] Jan, ROUT POSTPART FOLLOW -UP [facility], V24.2 ; FAMILY PLANNING [place] [id number] V25.09 and DELIV NOS-UNSP 669.70 [place] [facility] Dec, DELIV NOS- UNSP [facility], 669.70 [place] [id number] [place] [facility] Dec, [place] [id number] [place] [facility] Dec, O[place] [id number] [place] [facility] Dec, SCREENING NOS [facility], V28.9 [place] [id number] [place] [facility] Nov, SCREENING [facility], UNSPEC. V28.9 [place] [id number] [place] [facility] Nov, SCREENING [facility]BGYN [facility], UNSPEC. V28.9 [place] [id number] [place] [facility] Oct, SCREENING [facility]BGYN [facility], UNSPEC. V28.9 [place] [id number] [place] [facility] Oct, SCREENING OBGYN [facility], UNSPEC. V28.9 and Ovarian [place] [id number] cyst NOS 620.2 [place] [facility] Oct, Uterine size-date [facility], discrepancy-antepartum [place] [id number] 646.83 [place] [facility] Oct, [place] [id number] [place] [facility] Oct, [place], [place] [id number] [place] [facility] Sep, Urinary frequency 788.41 O[place], [place] [id number] [place] [facility] Sep, SCREENING [facility]BGYN [facility], UNSPEC. V28.9 [place] [id number] [place] [facility] Aug, SCREENING OBGYN [facility], UNSPEC. V28.9 [place] [id number] [place] [facility] Aug, US-SCREEN ANOMALIES V28.3 [place] [id number] [place] [facility] Jul, SCREENING OBGYN [facility], UNSPEC. V28.9 [place] [id number] [place] [facility] Jun, SCREENING OBGYN [facility], UNSPEC. V28.9 [place] [id number] [place] [facility] May, SCREENING OBN [facility], UNSPEC. V28.9 [place] [id number] [place] [facility] May, OBG[place], [place] [id number] [place] [facility] May, OBG[place] [id number] [place] [facility] Apr, Suppression menstruation [facility], 626.8 [place] [id number] IMMUNIZATIONS No Known Immunizations SOCIAL HISTORY Never Assessed REASON FOR REFERRAL FUNCTIONAL STATUS PLAN OF CARE Activity Details Follow Up as scheduled Reason: VITAL SIGNS Height 67 in 2019-10-16 Weight 194 lbs 2019-10-16 BMI 30.38 kg/m2 2019-10-16 Blood pressure systolic 110 mm Hg 2019-10-16 Blood pressure diastolic 80 mm Hg 2019-10-16 MEDICATIONS Medication Instructions Dosage Frequency Start End Date Duration Status Date multivitamin orally once a 1 cap(s) 24h Active Multiple Vitamins day valacyclovir 500 orally once a 1 tab(s) 24h Active mg day Fish Oil 1000 mg orally once a 1 cap(s) 24h Active day misoprostol 200 orally once with 1 tab(s) Sep, Active mcg dinner night 2018 before appt, once just before bed, once with breakfast morning of appt calcium 500 mg orally as needed Active Vitamin D3 1000 orally once a 2 tab(s) 24h Active intl units day Vitamin B12 1000 orally once a 1 tab(s) 24h Active mcg day lysine 1000 mg orally once a 1 tab(s) 24h Active day Ibuprofen 800 mg Oral tid prn 1 tab Active PROCEDURES Procedure Date Ordered Result Body Site BIOPSY OF UTERUS LINING Oct 16, 2019 RESULTS No Results REASON FOR VISIT [facility] Insurance Providers Formerly [facility] Health Member Patient Patient Patient Patient Patient Subscriber Subscriber Subscriber Group Insurance Plan Plan Plan Plan ID Relationship Address Phone Name Date of ID Name Date of No Type Insurance Insurance Insurance Coverage to Subscriber Address Phone Name Dates Blue Cross [phone] Blue Cross self Terri 1985 [id number] Blue [id number] [address] [place] [address] [employer] [place] [address] Blue Cross [phone] Blue Cross self Terri 1985 [id number] [id number] 89 [address] [place] [address] [employer] [facility] [place] [address] [employer] [phone] [employer] self Terri 1985 [id number] Blue [id number] 89 [address] [place] [address] Cross/Blue [place] Cross/Blue [place] Shield [id number] Shield MEDICAL (GENERAL) HISTORY Type Description Date Medical History acid reflux Medical History cold sores Medical History Migraines with Aura Medical History Arcuate Uterus Medical History kidney isssues proteinuria Medical History frequent UTI'S Medical History lactose intolerant Medical History IBS Medical History Endometrial polyp Surgical History [place] Teeth removed 2003 Surgical History 12/10/2009 Surgical History hysterosocpy D&C polypectomy 11-09-2010 Surgical History ESSURE 01/16/13, 03/13/13 Surgical History vein surgery 03/13/13 Surgical History rotator cuff surgery 2019 Hospitalization History stung by a bee- allergic Hospitalization History see above
--- OUTSIDE RECORDS SUMMARY | 2019-12-04 16:46 | XMS REPORT ---
:1985 Author Organization [facility]ly [facility] Address [address] [place] [address] Care Team Providers Name Role Phone Shyla Mohan Unavailable Unavailable PROBLEMS Type Condition ICD9-CM DMD23-DM Onset Condition SNOMED Code Code Code Dates Status Problem Mild cervical N87.0 Active 237866440 dysplasia Problem Pelvic and R10.2 Active 840021329 perineal pain Problem Unspecified lump N63.20 Active [id number] in the left breast, unspecified quadrant Problem Unsatisfactory R87.615 Active 067735839 cytologic smear of cervix Problem Papillomavirus as B97.7 Active 1129719 the cause of diseases classified elsewhere Problem Excessive and N92.0 Active 073483654 frequent menstruation with regular cycle Problem Arcuate uterus Q51.810 Active 94141522 Problem Unspecified lump N63.10 Active [id number] in the right breast, unspecified quadrant Problem 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 Problem 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 20824922 oligomenorrhea Problem 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 560251538 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) ALLERGIES Substance Reaction Event Type Date Status Bees anaphylaxis Drug Allergy Oct, Active penicillin hives Drug Allergy Oct, Active ENCOUNTERS Encounter Location Date Diagnosis [facility] 103 Nov, OBGYN [place], [place] [id number] [facility] 103 Oct, Excessive and frequent OBGYN [facility], menstruation with regular [place] [id number] cycle N92.0 [facility] 103 Oct, Excessive and frequent OBGYN [facility], menstruation with regular [place] [address]26[address] cycle N92.0 [facility] 103 Oct, OBGYN [facility], [place] [id number] [place] [facility] Oct, Excessive and frequent [address]YN [address] [place], menstruation with regular [place] [id number] cycle N92.0 [facility] 103 Oct, Excessive and frequent OBGYN [facility], menstruation with regular [place] [id number] cycle N92.0 [facility] 103 Oct, Excessive and frequent OBGYN [facility], menstruation with regular [place] [id number] cycle N92.0 [facility] 103 Oct, Excessive and frequent OBGYN [facility], menstruation with regular [place] [id number] cycle N92.0 [facility] 103 Sep, Encounter for OBGYN [facility], gynecological examination [place] [id number] (general) (routine) with abnormal findings Z01.411 ; Encounter for screening for malignant neoplasm of cervix Z12.4 ; Mild cervical dysplasia N87.0 and Excessive and frequent menstruation with regular cycle N92.0 [facility] 103 Nov, Low grade squamous OBGYN [facility], intraepithelial lesion on [place] [id number] cytologic smear of cervix (LGSIL) R87.612 and Unsatisfactory cytologic smear of cervix R87.615 [facility] 103 Nov, OBGYN [facility], [place] [id number] [facility] 103 Nov, Low grade squamous OBGYN [facility], intraepithelial lesion on [place] [id number] cytologic smear of cervix (LGSIL) R87.612 [facility] Aug, [place]BG[place], [place] [id number] [facility] 103 Aug, Encounter for OBGYN [facility], gynecological examination [place] [id number] (general) (routine) without abnormal findings Z01.419 and Encounter for screening for malignant neoplasm of cervix Z12.4 [facility] 103 10 Jun, 2018 Anogenital (venereal ) OBGYN [facility], warts A63.0 ; Pelvic and [place] [id number] perineal pain R10.2 and Secondary oligomenorrhea N91.4 [facility] May, Pelvic and perineal pain OBGYN [facility], R10.2 and Secondary [place] [id number] oligomenorrhea N91.4 [facility] May, Pelvic and perineal pain OBGYN [facility], R10.2 and Encounter for [place] [id number] routine checking of intrauterine contraceptive device Z30.431 [facility] 103 Apr, Pelvic and perineal pain OBGYN [facility], R10.2 [place] [id number] [facility] Apr, [place] [id number] [facility] 103 Apr, [place]BG[place] [id number] [facility] 103 Apr, Anogenital (venereal ) OBGYN [facility] warts A63.0 and Encounter [place] [id number] for screening for infections with a predominantly sexual mode of transmission Z11.3 [facility] 103 February, Pelvic and perineal pain OBGYN [facility], R10.2 [place] [id number] [facility] Sep, Unspecified lump in the OBGYN [facility], left breast, unspecified [place] [id number] quadrant N63.20 and Unspecified lump in the right breast, unspecified quadrant N63.10 [facility] 103 Aug, OBGYN [facility], [place] [id number] [facility] 103 Aug, Encounter for OBGYN [facility], gynecological examination [place] [id number] (general) (routine) without abnormal findings Z01.419 [facility] 103 Aug, [facility] gynecological examination [place] [id number] (general) (routine) without abnormal findings Z01.419 ; Encounter for screening for infections with a predominantly sexual mode of transmission Z11.3 ; Unspecified lump in the left breast, unspecified quadrant N63.20 ; Unspecified lump in the right breast, unspecified quadrant N63.10 and Disorder of urinary system, unspecified N39.9 [facility] 103 05 Jul, 2017 OBGYN [place], [place] [id number] [facility] 103 12 Jan, 2017 [facility], R10.2 [place] [id number] [facility] 103 14 Aug, 2016 [place] [id number] [facility] 103 10 Aug, 2016 Encounter for OBGYN [facility], gynecological examination [place] [id number] (general) (routine) without abnormal findings Z01.419 and Encounter for screening for infections with a predominantly sexual mode of transmission Z11.3 [facility] 103 Dec, Other specified conditions [facility], associated with female [place] [id number] genital organs and menstrual cycle N94.89 [facility] 103 09 Aug, 2015 [facility], gynecological examination [place] [id number] (general) (routine) without abnormal findings Z01.419 and Encounter for screening for malignant neoplasm of cervix Z12.4 [facility] 103 Nov, [place] [id number] [facility] 103 Nov, [place] [id number] [facility] 103 Aug, ROUTINE DIALYSIS EQUIPMENT TECHNICIAN EXAMINATION OBN [facility], V72.31 ; CERVICAL [place] [id number] DYSPLASIA, MILD (LOAN I) 622.11 ; PAP SMEAR W/O DIALYSIS EQUIPMENT TECHNICIAN EXAM V76.2 and 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 [facility] 103 Jul, VULVODYNIA NOS 625.70 [place] [id number] [facility] 103 May, Allergic dermatitis due to OBGYN [facility], other non food plant 692.6 [place] [id number] [facility] 103 Jan, OBG[place], [place] [id number] [facility] 103 Dec, CERVICAL DYSPLASIA, MILD OBN [facility], (LOAN I) 622.11 and Human [place] [id number] papilloma virus 079.4 [facility] 103 Dec, CERVICAL DYSPLASIA, MILD OBN [facility], (LOAN I) 622.11 and Human [place] [id number] papilloma virus 079.4 [facility] 103 Nov, [place]BG[place] [id number] [facility] 103 Oct, [place] [id number] [facility] 103 Oct, [place] [id number] [facility] 103 Aug, [place] [id number] [facility] 103 30 Jul, 2013 ROUTINE DIALYSIS EQUIPMENT TECHNICIAN EXAMINATION OBGYN [facility], V72.31 and PAP SMEAR W/O [place] [id number] DIALYSIS EQUIPMENT TECHNICIAN EXAM V76.2 [facility] 103 09 Jun, 2013 FAMILY PLANNING V25.09 OBGYN [place], [place] [id number] [facility] 103 24 Mar, 2013 STERILIZATION V25.2 [place] [id number] [facility] 103 Mar, STERILIZATION V25.2 [place], [place] [id number] [facility] 103 Mar, STERILIZATION V25.2 [place], [place] [id number] [facility] 103 February, [place], [place] [id number] [facility] 103 Jan, [place]BG[place] [id number] [facility] Jan, [place], [place] [id number] [facility] 103 19 Jan, 2013 STERILIZATION V25.2 and OBGYN [facility], Stenosis of cervix 622.4 [place] [id number] [facility] 16 Jan, 2013 [place]BG[place] [id number] [facility] 14 Jan, 2013 [place]BG[place] [id number] [facility] 12 Jan, 2013 STERILIZATION V25.2 and OBGYN [facility], Stenosis of cervix 622.[address] [place] [id number] [address] 10 Jan, 2013 [facility]ILY PLANNING V25.[address] [facility] [facility] [address] [place], [place] [id number] [facility] 11 Dec, 2012 OBG[place], [place] [id number] [facility] 103 11 Dec, 2012 CONTRACEPT SURVEILL NOS OBGYN [facility], V25.40 and FAMILY PLANNING [place] [id number] V25.09 [facility] 13 Sep, 2012 CERVICAL DYSPLASIA, MILD OBGYN [facility], (LOAN I) 622.11 and FAMILY [place] [id number] PLANNING V25.09 [facility] 29 Aug, 2012 PAP SMEAR (ASC-US) 795.01 OBGYN [facility], and Human papilloma virus [place] [id number] 079.4 [facility] 103 07 Aug, 2012 OBGYN [place], [place] [id number] [facility] 103 Jul, ROUTINE DIALYSIS EQUIPMENT TECHNICIAN EXAMINATION OBN [facility], V72.31 and PAP SMEAR W/O [place] [id number] DIALYSIS EQUIPMENT TECHNICIAN EXAM V76.2 [facility] 103 Mar, OBG[place], [place] [id number] [facility] 103 Oct, OBG[place] [id number] [facility] 103 Oct, Vulvadynia 625.9 and OBGYN [facility], Menorrhagia 626.2 [place] [id number] [facility] 103 Sep, Vulvadynia 625.9 and OBGYN [facility], Ovarian cyst NOS 620.2 [place] [id number] [facility] 103 Sep, Ovarian cyst NOS 620.2 [place] [id number] [facility] Aug, Vulvadynia 625.9 [place] [id number] [facility] 24 Jul, 2011 ROUTINE DIALYSIS EQUIPMENT TECHNICIAN EXAMINATION [facility], V72.31 ; PAP SMEAR W/O DIALYSIS EQUIPMENT TECHNICIAN [place] [id number] EXAM V76.2 ; Dysuria 788.1 and Vulvadynia 625.9 [facility] 103 17 Jul, 2011 FAMILY PLANNING V25.09 [place] [id number] [facility] 103 Jul, [place] [id number] [facility] 103 May, Ovarian cyst NOS 620.2 ; OBGYN [facility], Bleeding unrelated to [place] [id number] menstrual cycle 626.6 ; Arcuate uterus 752.36 and Amenorrhea 626.0 [facility] 103 May, [place] [id number] [facility] 103 May, Ovarian cyst NOS 620.2 ; OBGYN [facility], Bleeding unrelated to [place] [id number] menstrual cycle 626.6 ; Endometrial polyp 621.0 and Arcuate uterus 752.36 [facility] 103 May, Ovarian cyst NOS 620.2 and OBGYN [facility], Oligomenorrhea 626.1 [place] [id number] [facility] 103 Mar, [facility] menstrual cycle 626.6 ; [place] [id number] Endometrial polyp 621.0 and Arcuate uterus 752.36 [facility] 103 February, [facility], menstrual cycle 626.6 ; [place] [id number] Endometrial polyp 621.0 ; Arcuate uterus 752.36 and Ovarian cyst NOS 620.2 [facility] February, Ovarian cyst NOS 620.2 [place] [id number] [facility] 103 Dec, Bleeding unrelated to OBGYN [facility], menstrual cycle 626.6 ; [place] [id number] Endometrial polyp 621.0 ; Arcuate uterus 752.36 and Ovarian cyst NOS 620.2 [facility] 103 Dec, Ovarian cyst NOS 620.2 [facility] [place] [id number] [place] [address] Nov, [place], [place] [id number] [facility] 103 Nov, Bleeding [facility] to [facility], menstrual cycle 626.6 ; [place] [id number] Endometrial polyp 621.0 ; Arcuate uterus 752.36 and Ovarian cyst NOS 620.2 [facility] 103 Oct, Bleeding [facility] to [facility], menstrual cycle 626.6 ; [place] [id number] Endometrial polyp 621.0 ; Arcuate uterus 752.36 and Ovarian cyst NOS 620.2 [facility] 103 Oct, [facility]eding [facility] to [facility], menstrual cycle 626.6 [place] [id number] [facility] 103 Oct, Bleeding [facility] to [facility], menstrual cycle 626.6 [place] [id number] [facility] 103 Oct, Bleeding unrelated to OBGYN [facility], menstrual cycle 626.6 [place] [id number] [facility] 103 Oct, Bleeding [facility] to [facility], menstrual cycle 626.6 ; [place] [id number] Endometrial polyp 621.0 and Ovarian cyst NOS 620.2 [facility] 103 Sep, Bleeding [facility] to [facility], menstrual cycle 626.6 [place] [id number] [facility] 103 Jun, ROUTINE DIALYSIS EQUIPMENT TECHNICIAN EXAMINATION [facility], V72.31 ; CONTRACEPT [place] [id number] SURVEILL NOS V25.40 and Bleeding unrelated to menstrual cycle 626.6 [facility] Apr, [place] [id number] [facility] 103 February, [place]BG[place] [id number] [facility] Jan, ROUT POSTPART FOLLOW -UP OBGYN [facility], V24.2 ; FAMILY PLANNING [place] [id number] V25.09 and DELIV NOS-UNSP 669.70 [facility] 103 Dec, DELIV NOS- UNSP OBGYN [facility], 669.70 [place] [id number] [facility] 103 Dec, OBG[place] [id number] [facility] 103 Dec, O[place] [id number] [facility] 103 Dec, SCREENING NOS OBGYN [facility], V28.9 [place] [id number] [facility] 103 Nov, SCREENING OBGYN [facility], UNSPEC. V28.9 [place] [id number] [facility] 103 Nov, SCREENING OBGYN [facility], UNSPEC. V28.9 [place] [id number] [facility] Oct, SCREENING OBGYN [facility], UNSPEC. V28.9 [place] [id number] [facility] 103 Oct, SCREENING OBGYN [facility], UNSPEC. V28.9 and Ovarian [place] [id number] cyst NOS 620.2 [facility] 103 Oct, Uterine size-date OBGYN [facility], discrepancy-antepartum [place] [id number] 646.83 [facility] 103 Oct, OBGYN [facility], [place] [id number] [facility] 103 Oct, [place] [id number] [facility] 103 Sep, Urinary frequency 788.41 OBG[place] [id number] [facility] 103 Sep, SCREENING OBGYN [facility], UNSPEC. V28.9 [place] [id number] [facility] 103 Aug, SCREENING OBGYN [facility], UNSPEC. V28.9 [place] [id number] [facility] 103 Aug, US-SCREEN ANOMALIES V28.3 OBGYN [place], [place] [id number] [facility] 103 Jul, SCREENING OBGYN [facility], UNSPEC. V28.9 [place] [id number] [facility] 103 Jun, SCREENING OBGYN [facility], UNSPEC. V28.9 [place] [id number] [facility] 103 May, SCREENING OBGYN [facility], UNSPEC. V28.9 [place] [id number] [facility] 103 May, [place]BG[place], [place] [id number] [facility] 103 May, [place] [id number] [facility] 103 Apr, Suppression menstruation OBGYN [facility], 626.8 [place] [id number] IMMUNIZATIONS No Known Immunizations SOCIAL HISTORY Never Assessed REASON FOR REFERRAL FUNCTIONAL STATUS PLAN OF CARE Activity Details Follow Up f/u 2 wk post-op Reason: VITAL SIGNS Height 67 in 2019-11-04 Weight 190 lbs 2019-11-04 BMI 29.75 kg/m2 2019-11-04 Blood pressure systolic 110 mm Hg 2019-11-04 Blood pressure diastolic 80 mm Hg 2019-11-04 MEDICATIONS Medication Instructions Dosage Frequency Start End Date Duration Status Date valacyclovir 500 orally once a 1 tab(s) 24h Active mg day calcium 500 mg orally as needed Active Fish Oil 1000 mg orally once a 1 cap(s) 24h Active day Cytotec 200 mcg orally 1 tab at 1 tab(s) Oct, dinner night 2019 before procedure, 1 tab at bedtime night before procedure, 1 tab at 6 AM day of procedure Vitamin D3 1000 orally once a 2 tab(s) 24h Active intl units day Vitamin B12 1000 orally once a 1 tab(s) 24h Active mcg day multivitamin orally once a 1 cap(s) 24h Active Multiple Vitamins day lysine 1000 mg orally once a 1 tab(s) 24h Active day PROCEDURES Procedure Date Ordered Result Body Site URINE TEST Nov 04, 2019 PARACERVICAL BLOCK Nov 04, 2019 HYSTEROSCOPY, BIOPSY Nov 04, 2019 RESULTS Name Result Date Reference Range URINE TEST REASON FOR VISIT in office [facility] d&c Insurance Providers [facility] Member Patient Patient Patient Patient Patient Subscriber Subscriber Subscriber Group Insurance Plan Plan Plan Plan ID Relationship Address Phone Name Date of ID Name Date of No Type Insurance Insurance Insurance Coverage to Subscriber Address Phone Name Dates [employer] [phone] self Terri 1985 [id number] [id number] 89 [place] [address] [place] [address] Blue [employer] [phone] [employer] self Terri 1985 [id number] Blue [id number] 89 [place] [address] [place] [address] [employer] [phone] [employer] self Terri 1985 [id number] Blue [id number] 89 Blue [place] [address] Cross/Blue [place] Cross/Blue n [facility] [place] [address] [place] [address] MEDICAL (GENERAL) HISTORY Type Description Date Medical History acid reflux Medical History cold sores Medical History Migraines with Aura Medical History Arcuate Uterus Medical History kidney isssues proteinuria Medical History frequent UTI'S Medical History lactose intolerant Medical History IBS Medical History Endometrial polyp Surgical History [place] Teeth removed 2003 Surgical History 12/10/2009 Surgical History hysterosocpy D&C polypectomy 2-3-2010 Surgical History ESSURE 01/16/13, 03/13/13 Surgical History vein surgery 03/13/13 Surgical History rotator cuff surgery 2018 Hospitalization History stung by a bee- allergic Hospitalization History see above
--- OUTSIDE RECORDS SUMMARY | 2019-12-04 16:46 | XMS REPORT ---
:1985 Author Name sound, ultra Care Team Providers Name Role Phone sound, ultra Unavailable Unavailable PROBLEMS Type Condition ICD9-CM [id number] Onset Condition SNOMED Code Code Code Dates Status Problem Mild cervical N87.0 Active 625380389 dysplasia Problem Pelvic and R10.2 Active 282696693 perineal pain Problem Unspecified lump N63.20 Active [id number] in the left breast, unspecified quadrant Problem Unsatisfactory R87.615 Active 211117938 cytologic smear of cervix Problem Papillomavirus as B97.7 Active 0409001 the cause of diseases classified elsewhere Problem Excessive and N92.0 Active 497596881 frequent menstruation with regular cycle Problem Arcuate uterus 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 Oct, Excessive and frequent OBGYN [facility], menstruation with regular [place] [id number] cycle N92.[address] [facility] Oct, Excessive and frequent OBGYN [facility], menstruation with regular [place] [id number] cycle N92.0 [facility] Oct, Excessive and frequent OBGYN [facility], menstruation with regular [place] [id number] cycle N92.0 [place] [facility] Sep, Encounter for OBGYN [facility], gynecological examination [place] [id number] (general) (routine) with abnormal findings Z01.411 ; Encounter for screening for malignant neoplasm of cervix Z12.4 ; Mild cervical dysplasia N87.0 and Excessive and frequent menstruation with regular cycle N92.0 [place] [facility] Nov, Low grade squamous OBGYN [facility], intraepithelial lesion [place] [id number] cytologic smear of cervix (LGSIL) R87.612 and Unsatisfactory cytologic smear of cervix R87.615 [facility] Nov, OBGYN [facility], [place] [id number] [facility] Nov, Low grade squamous OBGYN [facility], intraepithelial lesion on [place] [id number] cytologic smear of cervix (LGSIL) R87.612 [facility] Aug, OBG[place] [id number] [facility] Aug, Encounter for OBGYN [facility], gynecological examination [place] [id number] (general) (routine) without abnormal findings Z01.419 and Encounter for screening for malignant neoplasm of cervix Z12.4 [facility] 10 Jun, 2018 Anogenital (venereal ) OBGYN [facility], warts A63.0 ; Pelvic and [place] [id number] perineal pain R10.2 and Secondary oligomenorrhea N91.4 [place] [facility] 07 May, 2018 Pelvic and perineal pain OBGYN [facility], R10.2 and Secondary [place] [id number] oligomenorrhea N91.4 [place] [facility] May, Pelvic and perineal pain OBGYN [facility], R10.2 and Encounter [place] [id number] routine checking of intrauterine contraceptive device Z30.431 [place] [facility] Apr, Pelvic and perineal pain OBGYN [facility], R10.2 [place] [id number] [place] [facility] Apr, OBGYN [facility], [place] [id number] [facility] Apr, OBGYN [facility], [place] [id number] [facility] Apr, Anogenital (venereal ) OBGYN [facility], warts A63.0 and Encounter [place] [id number] for screening for infections with a predominantly sexual mode of transmission Z11.3 [facility] February, Pelvic and perineal pain OBGYN [facility], R10.2 [place] [id number] [facility] Sep, Unspecified lump in the OBGYN [facility], left breast, unspecified [place] [id number] quadrant N63.20 and Unspecified lump in the right breast, unspecified quadrant N63.10 [place] [facility] Aug, OBGYN [facility], [place] [id number] [facility] Aug, Encounter for OBGYN [facility], gynecological examination [place] [id number] (general) (routine) without abnormal findings Z01.419 [facility] Aug, [facility], gynecological examination [place] [id number] (general) (routine) without abnormal findings Z01.419 ; Encounter for screening for infections with a predominantly sexual mode of transmission Z11.3 ; Unspecified lump in the left breast, unspecified quadrant N63.20 ; Unspecified lump in the right breast, unspecified quadrant N63.10 and Disorder of urinary system, unspecified N39.9 [facility] Jul, [place] [id number] [facility] Jan, [facility] R10.2 [place] [id number] [facility] Aug, [place] [id number] [facility] Aug, [facility], gynecological examination [place] [id number] (general) (routine) without abnormal findings Z01.419 and Encounter for screening for infections with a predominantly sexual mode of transmission Z11.3 [facility] Dec, Other specified conditions [facility], associated with female [place] [id number] genital organs and menstrual cycle N94.89 [facility] 09 Aug, 2015 [facility], gynecological examination [place] [id number] (general) (routine) without abnormal findings Z01.419 and Encounter for screening for malignant neoplasm of cervix Z12.4 [facility] Nov, [place] [id number] [facility] Nov, [place] [id number] [facility] Aug, ROUTINE EXCEPTIONAL STUDENT EDUCATION AIDE EXAMINATION [facility], V72.31 ; CERVICAL [place] [id number] DYSPLASIA, MILD (LOAN I) 622.11 ; PAP SMEAR W/O EXCEPTIONAL STUDENT EDUCATION AIDE EXAM V76.2 and 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 [facility] Jul, VULVODYNIA NOS 625.70 [place] [id number] [facility] May, Allergic dermatitis due to OBGYN [facility], other non food plant 692.6 [place] [id number] [place] [facility] Jan, OBG[place] [id number] [facility] Dec, CERVICAL DYSPLASIA, MILD OBGYN [facility], (LOAN I) 622.11 and Human [place] [id number] papilloma virus 079.4 [facility] Dec, CERVICAL DYSPLASIA, MILD OBGYN [facility], (LOAN I) 622.11 and Human [place] [id number] papilloma virus 079.4 [place] [facility] Nov, [place]BG[place] [id number] [place] [facility] Oct, [place]BG[place] [id number] [place] [facility] Oct, [place]BG[place] [id number] [place] [facility] Aug, OBG[place] [id number] [place] [facility] Jul, ROUTINE EXCEPTIONAL STUDENT EDUCATION AIDE EXAMINATION OBGYN [facility], V72.31 and PAP SMEAR W/O [place] [id number] EXCEPTIONAL STUDENT EDUCATION AIDE EXAM V76.2 [place] [facility] 09 Jun, 2013 FAMILY PLANNING V25.09 [place]BG[place] [id number] [facility] Mar, STERILIZATION V25.2 [place] [id number] [place] [facility] Mar, STERILIZATION V25.2 [place] [id number] [place] [facility] Mar, STERILIZATION V25.2 [place] [id number] [place] [facility] 07 Feb, 2013 OBG[place] [id number] [facility] Jan, [place]BG[place] [id number] [facility] Jan, [place]BG[place] [id number] [place] [facility] 19 Jan, 2013 STERILIZATION V25.2 and OBGYN [facility], Stenosis of cervix 622.4 [place] [id number] [facility] 16 Jan, 2013 OBG[place] [id number] [facility] 14 Jan, 2013 OBG[place] [id number] [facility] 12 Jan, 2013 STERILIZATION V25.2 and OBGYN [facility], Stenosis of cervix 622.4 [place] [id number] [facility] 10 Jan, 2013 FAMILY PLANNING V25.[address] [place], [place] [id number] [facility] Dec, [place] [id number] [facility] Dec, CONTRACEPT SURVEILL NOS OBGYN [facility], V25.40 and FAMILY PLANNING [place] [id number] V25.09 [facility] Sep, CERVICAL DYSPLASIA, MILD [facility], (LOAN I) 622.11 and FAMILY [place] [id number] PLANNING V25.09 [place] [facility] Aug, PAP SMEAR (ASC-US) 795.01 [facility], and Human papilloma virus [place] [id number] 079.4 [facility] 07 Aug, 2012 OBGYN [place] [id number] [facility] Jul, ROUTINE EXCEPTIONAL STUDENT EDUCATION AIDE EXAMINATION OBGYN [facility], V72.31 and PAP SMEAR W/O [place] [id number] EXCEPTIONAL STUDENT EDUCATION AIDE EXAM V76.2 [facility] Mar, [place] [id number] [facility] Oct, [place] [id number] [facility] Oct, Vulvadynia 625.9 and OBGYN [facility], Menorrhagia 626.2 [place] [id number] [facility] Sep, Vulvadynia 625.9 and OBGYN [facility], Ovarian cyst NOS 620.2 [place] [id number] [facility] Sep, Ovarian cyst NOS 620.2 OBG[place] [id number] [facility] Aug, Vulvadynia 625.9 [place]BG[place] [id number] [facility] Jul, ROUTINE EXCEPTIONAL STUDENT EDUCATION AIDE EXAMINATION OBGYN [facility], V72.31 ; PAP SMEAR W/O EXCEPTIONAL STUDENT EDUCATION AIDE [place] [id number] EXAM V76.2 ; Dysuria 788.1 and Vulvadynia 625.9 [facility] Jul, FAMILY PLANNING V25.09 [place]BG[place] [id number] [facility] Jul, [place]BG[place] [id number] [facility] May, Ovarian cyst NOS 620.2 ; OBGYN [facility], Bleeding unrelated to [place] [id number] menstrual cycle 626.6 ; Arcuate uterus 752.36 and Amenorrhea 626.0 [facility] May, [place] [id number] [facility] May, Ovarian cyst NOS 620.2 ; OBGYN [facility], Bleeding unrelated to [place] [id number] menstrual cycle 626.6 ; Endometrial polyp 621.0 and Arcuate uterus 752.36 [place] [facility] May, Ovarian cyst NOS 620.2 and OBGYN [facility], Oligomenorrhea 626.1 [place] [id number] [facility] Mar, Bleeding [facility], menstrual cycle 626.6 ; [place] [id number] Endometrial polyp 621.0 and Arcuate uterus 752.36 [place] [facility] February, Bleeding [facility], menstrual cycle 626.6 ; [place] [id number] Endometrial polyp 621.0 ; Arcuate uterus 752.36 and Ovarian cyst NOS 620.2 [facility] February, Ovarian cyst NOS 620.2 [place] [id number] [facility] Dec, Bleeding [facility] to [facility], menstrual cycle 626.6 ; [place] [id number] Endometrial polyp 621.0 ; Arcuate uterus 752.36 and Ovarian cyst NOS 620.2 [facility] Dec, Ovarian cyst NOS 620.2 [place] [id number] [place] [address] Nov, [place], [place] [id number] [facility] Nov, Bleeding unrelated to OBGYN [facility], menstrual cycle 626.6 ; [place] [id number] Endometrial polyp 621.0 ; Arcuate uterus 752.36 and Ovarian cyst NOS 620.2 [place] [facility] Oct, Bleeding unrelated to OBGYN [facility], menstrual cycle 626.6 ; [place] [id number] Endometrial polyp 621.0 ; Arcuate uterus 752.36 and Ovarian cyst NOS 620.2 [facility] Oct, Bleeding unrelated to OBGYN [facility], menstrual cycle 626.6 [place] [id number] [facility] Oct, Bleeding unrelated to OBGYN [facility], menstrual cycle 626.6 [place] [id number] [facility] Oct, Bleeding unrelated to OBGYN [facility], menstrual cycle 626.6 [place] [id number] [facility] Oct, Bleeding unrelated to OBN [facility], menstrual cycle 626.6 ; [place] [id number] Endometrial polyp 621.0 and Ovarian cyst NOS 620.2 [facility] Sep, [facility], menstrual cycle 626.6 [place] [id number] [facility] 13 Jun, 2010 ROUTINE EXCEPTIONAL STUDENT EDUCATION AIDE EXAMINATION [facility], V72.31 ; CONTRACEPT [place] [id number] SURVEILL NOS V25.40 and Bleeding unrelated to menstrual cycle 626.6 [facility] Apr, [place] [id number] [facility] February, [place] [id number] [facility] Jan, ROUT POSTPART FOLLOW -UP [facility], V24.2 ; FAMILY PLANNING [place] [id number] V25.09 and DELIV NOS-UNSP 669.70 [facility] Dec, DELIV NOS- UNSP [facility], 669.70 [place] [id number] [facility] Dec, [place] [id number] [place] [facility] Dec, [place] [id number] [place] [facility] Dec, SCREENING NOS OBGYN [facility], V28.9 [place] [id number] [place] [facility] Nov, SCREENING OBGYN [facility], UNSPEC. V28.9 [place] [id number] [place] [facility] Nov, SCREENING OBGYN [facility], UNSPEC. V28.9 [place] [id number] [place] [facility] Oct, SCREENING OBGYN [facility], UNSPEC. V28.9 [place] [id number] [place] [facility] Oct, SCREENING OBGYN [facility], UNSPEC. V28.9 and Ovarian [place] [id number] cyst NOS 620.2 [place] [facility] Oct, Uterine size-date OBGYN [facility], discrepancy-antepartum [place] [id number] 646.83 [place] [facility] Oct, [place] [id number] [place] [facility] Oct, [place] [id number] [place] [facility] Sep, Urinary frequency 788.41 [place]BG[place] [id number] [place] [facility] Sep, SCREENING OBGYN [facility], UNSPEC. V28.9 [place] [id number] [place] [facility] Aug, SCREENING OBGYN [facility], UNSPEC. V28.9 [place] [id number] [place] [facility] Aug, US-SCREEN ANOMALIES V28.3 [place]BG[place] [id number] [place] [facility] Jul, SCREENING OBGYN [facility], UNSPEC. V28.9 [place] [id number] [place] [facility] Jun, SCREENING OBGYN [facility], UNSPEC. V28.9 [place] [id number] [place] [facility] May, SCREENING OBGYN [facility], UNSPEC. V28.9 [place] [id number] [place] [facility] May, [place]BG[place] [id number] [place] [facility] May, [place] [id number] [place] [facility] Apr, Suppression menstruation OBGYN [facility], 626.8 [place] [id number] IMMUNIZATIONS No Known Immunizations SOCIAL HISTORY Never Assessed REASON FOR REFERRAL FUNCTIONAL STATUS PLAN OF CARE VITAL SIGNS MEDICATIONS Unknown Medications PROCEDURES Procedure Date Ordered Result Body Site CATHETER FOR HYSTEROGRAPHY Oct 15, 2019 3D rendering requiring imaging post processing Oct 15, 2019 ECHO EXAM, UTERUS Oct 15, 2019 URINE TEST Oct 15, 2019 RESULTS Name Result Date Reference Range URINE TEST hysterosonogram REASON FOR VISIT hystero Insurance Providers [facility] Member Patient Patient Patient Patient Patient Subscriber Subscriber Subscriber Group Insurance Plan Plan Plan Plan ID Relationship Address Phone Name Date of ID Name Date of No Type Insurance Insurance Insurance Coverage to Subscriber Address Phone Name Dates [employer] [address] [employer] self Terri 1985 [id number] Blue [id number] [address] [place] [address] Cross/[place] Cross/Blue [place] Shield [address] Shield Blue Cross [address]- Blue Cross self Terri 1985 [id number] Blue [address] [address] [place] [address] Shield [facility] [place] [address] Blue Cross [address]- Blue Cross self Terri 1985 [id number]- Blue [id number] 89 [address] [place] [address] Shield [facility] [place] [address] MEDICAL (GENERAL) HISTORY Type Description Date Medical History acid reflux Medical History cold sores Medical History Migraines with Aura Medical History Arcuate Uterus Medical History kidney isssues proteinuria Medical History frequent UTI'S Medical History lactose intolerant Medical History IBS Medical History Endometrial polyp Surgical History Jewell Teeth removed 2003 Surgical History 12/10/2009 Surgical History hysterosocpy D&C polypectomy 11-09-2010 Surgical History ESSURE 01/16/13, 03/13/13 Surgical History vein surgery 03/13/13 Surgical History rotator cuff surgery 2019 Hospitalization History stung by a bee- allergic Hospitalization History see above
--- OUTSIDE RECORDS SUMMARY | 2019-12-04 16:46 | XMS REPORT ---
:1985 Author Name Lillie Mcclellan Address [address] [place] [address] Care Team Providers Name Role Phone Lillie Mcclellan Unavailable Unavailable PROBLEMS Type Condition ICD9-CM [id number] Onset Condition SNOMED Code Code Code Dates Status Problem Mild cervical N87.0 Active 814986148 dysplasia Problem Pelvic and R10.2 Active 924061574 perineal pain Problem Unspecified lump N63.20 Active [id number] in the left breast, unspecified quadrant Problem Unsatisfactory R87.615 Active 560080674 cytologic smear of cervix Problem Papillomavirus as B97.7 Active 0191104 the cause of diseases classified elsewhere Problem Excessive and N92.0 Active 426138305 frequent menstruation with regular cycle Problem Arcuate uterus Q51.810 Active 81793030 Problem Unspecified lump N63.10 Active 27098973272007199 in the right breast, unspecified quadrant Problem 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 Problem 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 57883937 oligomenorrhea Problem 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 174494861 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) ALLERGIES Substance Reaction Event Type Date Status Bees anaphylaxis Drug Allergy Oct, Active penicillin hives Drug Allergy Oct, Active ENCOUNTERS Encounter Location Date Diagnosis [address] Oct, [address] [place], [place] [id number] [facility] Oct, Excessive and frequent OBGYN [facility], menstruation with regular [place] [address] cycle N92.0 [facility] Oct, Excessive and frequent OBGYN [facility], menstruation with regular [place] [address] cycle N92.0 [facility] Oct, Excessive and frequent OBGYN [facility], menstruation with regular [place] [address] cycle N92.[address] [facility] Sep, Encounter for OBGYN [facility], gynecological examination [place] [id number] (general) (routine) with abnormal findings Z01.411 ; Encounter for screening for malignant neoplasm of cervix Z12.4 ; Mild cervical dysplasia N87.0 and Excessive and frequent menstruation with regular cycle N92.0 [facility] 28 Nov, 2018 [facility] [place] [id number] cytologic smear of cervix (LGSIL) R87.612 and Unsatisfactory cytologic smear of cervix R87.615 [facility] 14 Nov, 2018 OBGYN [facility], [place] [id number] [facility] 14 Nov, 2018 Low grade squamous [facility], intraepithelial lesion [place] [id number] cytologic smear of cervix (LGSIL) R87.612 [facility] Aug, OBGYN [facility], [place] [id number] [facility] Aug, [facility], gynecological examination [place] [id number] (general) (routine) without abnormal findings Z01.419 and Encounter for screening for malignant neoplasm of cervix Z12.4 [facility] 10 Jun, 2018 Anogenital (venereal ) OBGYN [facility], warts A63.0 ; Pelvic and [place] [id number] perineal pain R10.2 and Secondary oligomenorrhea N91.4 [facility] May, Pelvic and perineal pain OBGYN [facility], R10.2 and Secondary [place] [id number] oligomenorrhea N91.4 [facility] May, Pelvic and perineal pain OBGYN [facility], R10.2 and Encounter for [place] [id number] routine checking of intrauterine contraceptive device Z30.431 [facility] Apr, Pelvic and perineal pain OBGYN [facility], R10.2 [place] [id number] [facility] Apr, OBGYN [facility], [place] [id number] [facility] Apr, OBGYN [facility], [place] [id number] [facility] Apr, Anogenital (venereal ) OBGYN [facility], warts A63.0 and Encounter [place] [id number] for screening for infections with a predominantly sexual mode of transmission Z11.3 [facility] February, Pelvic and perineal pain OBGYN [facility], R10.2 [place] [id number] [facility] 11 Sep, 2017 Unspecified lump in the OBGYN [facility], left breast, unspecified [place] [id number] quadrant N63.20 and Unspecified lump in the right breast, unspecified quadrant N63.10 [facility] Aug, OBGYN [facility], [place] [id number] [facility] Aug, Encounter for OBGYN [facility], gynecological examination [place] [id number] (general) (routine) without abnormal findings Z01.419 [facility] Aug, Encounter for OBGYN [facility], gynecological examination [place] [id number] (general) (routine) without abnormal findings Z01.419 ; Encounter for screening for infections with a predominantly sexual mode of transmission Z11.3 ; Unspecified lump in the left breast, unspecified quadrant N63.20 ; Unspecified lump in the right breast, unspecified quadrant N63.10 and Disorder of urinary system, unspecified N39.9 [facility] 05 Jul, 2017 [place] [id number] [facility] Jan, Pelvic and perineal pain [facility], R10.2 [place] [id number] [facility] Aug, [place] [id number] [facility] Aug, Encounter for [facility], gynecological examination [place] [id number] (general) (routine) without abnormal findings Z01.419 and Encounter for screening for infections with a predominantly sexual mode of transmission Z11.3 [facility] Dec, Other specified conditions [facility], associated with female [place] [id number] genital organs and menstrual cycle N94.89 [facility] Aug, Encounter for [facility], gynecological examination [place] [id number] (general) (routine) without abnormal findings Z01.419 and Encounter for screening for malignant neoplasm of cervix Z12.4 [facility] Nov, [place] [id number] [facility] Nov, [place] [id number] [facility] Aug, ROUTINE [employer] SUPERINTENDENT EXAMINATION [facility], V72.31 ; CERVICAL [place] [id number] DYSPLASIA, MILD (LOAN I) 622.11 ; PAP SMEAR W/O [employer] SUPERINTENDENT EXAM V76.2 and 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 [facility] 07 Jul, 2014 VULVODYNIA NOS 625.70 [place] [id number] [facility] May, Allergic dermatitis due to OBGYN [facility], other non food plant 692.6 [place] [id number] [facility] Jan, [place]BG[place] [id number] [facility] Dec, CERVICAL DYSPLASIA, MILD OBGYN [facility], (LOAN I) 622.11 and Human [place] [id number] papilloma virus 079.4 [facility] Dec, CERVICAL DYSPLASIA, MILD OBGYN [facility], (LOAN I) 622.11 and Human [place] [id number] papilloma virus 079.4 [facility] Nov, [place]BG[place] [id number] [facility] Oct, [place] [id number] [facility] Oct, [place] [id number] [facility] Aug, [place] [id number] [facility] Jul, ROUTINE [employer] SUPERINTENDENT EXAMINATION OBGYN [facility], V72.31 and PAP SMEAR W/O [place] [id number] [employer]ENT EXAM V76.2 [facility] Jun, FAMILY PLANNING V25.09 [place] [id number] [facility] Mar, STERILIZATION V25.2 [place] [id number] [facility] Mar, STERILIZATION V25.2 [place] [id number] [facility] 06 Mar, 2013 STERILIZATION V25.2 [place] [id number] [facility] 07 Feb, 2013 [place] [id number] [facility] Jan, [place] [id number] [facility] Jan, [place] [id number] [facility] 19 Jan, 2013 STERILIZATION V25.2 and OBGYN [facility], Stenosis of cervix 622.4 [place] [id number] [facility] 16 Jan, 2013 [place]BG[place] [id number] [facility] 14 Jan, 2013 [place] [id number] [facility] 12 Jan, 2013 STERILIZATION V25.2 and OBGYN [facility], Stenosis of cervix 622.[address] [place] [id number] [address] 10 Jan, 2013 FAMILY PLANNING V25.[address] [facility] [address] [place], [place] [id number] [facility] Dec, [place] [id number] [facility] 11 Dec, 2012 CONTRACEPT SURVEILL NOS OBGYN [facility], V25.40 and FAMILY PLANNING [place] [id number] V25.09 [facility] 13 Sep, 2012 CERVICAL DYSPLASIA, MILD [facility], (LOAN I) 622.11 and FAMILY [place] [id number] PLANNING V25.09 [facility] 29 Aug, 2012 PAP SMEAR (ASC-US) 795.01 [facility], and Human papilloma virus [place] [id number] 079.4 [facility] Aug, [place] [id number] [facility] Jul, ROUTINE [employer] SUPERINTENDENT EXAMINATION OBGYN [facility], V72.31 and PAP SMEAR W/O [place] [id number] [employer] SUPER[employer]ENT EXAM V76.2 [facility] Mar, OBG[place] [id number] [facility] Oct, [place], [place] [id number] [facility] Oct, Vulvadynia 625.9 and OBGYN [facility], Menorrhagia 626.2 [place] [id number] [facility] Sep, Vulvadynia 625.9 and OBGYN [facility], Ovarian cyst NOS 620.2 [place] [id number] [facility] Sep, Ovarian cyst NOS 620.2 [place] [id number] [facility] Aug, Vulvadynia 625.9 [place] [id number] [facility] Jul, ROUTINE [employer] SUPERINTENDENT EXAMINATION OBGYN [facility], V72.31 ; PAP SMEAR W/O [employer] SUPERINTENDENT [place] [id number] EXAM V76.2 ; Dysuria 788.1 and Vulvadynia 625.9 [facility] Jul, FAMILY PLANNING V25.09 [place] [id number] [facility] Jul, [place]BG[place], [place] [id number] [facility] May, Ovarian cyst NOS 620.2 ; OBGYN [facility], Bleeding unrelated to [place] [id number] menstrual cycle 626.6 ; Arcuate uterus 752.36 and Amenorrhea 626.0 [facility] May, [place] [id number] [facility] May, Ovarian cyst NOS 620.2 ; OBGYN [facility], Bleeding unrelated to [place] [id number] menstrual cycle 626.6 ; Endometrial polyp 621.0 and Arcuate uterus 752.36 [facility] May, Ovarian cyst NOS 620.2 and OBGYN [facility], Oligomenorrhea 626.1 [place] [id number] [facility] Mar, Bleeding [facility] to [facility], menstrual cycle 626.6 ; [place] [id number] Endometrial polyp 621.0 and Arcuate uterus [address]52.[address] [address] [facility] February, [facility] menstrual cycle 626.6 ; [place] [id number] Endometrial polyp 621.0 ; Arcuate uterus 752.36 and Ovarian cyst NOS 620.2 [facility] February, Ovarian cyst NOS 620.2 [place], [place] [id number] [facility] Dec, [facility], menstrual cycle 626.6 ; [place] [id number] Endometrial polyp 621.0 ; Arcuate uterus 752.36 and Ovarian cyst NOS 620.2 [facility] Dec, Ovarian cyst NOS 620.2 [place] [id number] [place] [address] Nov, [place], [place] [id number] [facility] Nov, [facility], menstrual cycle 626.6 ; [place] [id number] Endometrial polyp 621.0 ; Arcuate uterus 752.36 and Ovarian cyst NOS 620.2 [facility] Oct, Bleeding unrelated to OBGYN [facility], menstrual cycle 626.6 ; [place] [id number] Endometrial polyp 621.0 ; Arcuate uterus 752.36 and Ovarian cyst NOS 620.2 [facility] Oct, Bleeding unrelated to OBGYN [facility], menstrual cycle 626.6 [place] [id number] [facility] Oct, Bleeding unrelated to OBGYN [facility], menstrual cycle 626.6 [place] [id number] [facility] Oct, Bleeding unrelated to OBGYN [facility], menstrual cycle 626.6 [place] [id number] [facility] Oct, Bleeding unrelated to OBGYN [facility], menstrual cycle 626.6 ; [place] [id number] Endometrial polyp 621.0 and Ovarian cyst NOS 620.2 [facility] Sep, Bleeding unrelated to OBGYN [facility], menstrual cycle 626.6 [place] [id number] [facility] 13 Jun, 2010 ROUTINE [employer] SUPERINTENDENT EXAMINATION [facility], V72.31 ; CONTRACEPT [place] [id number] SURVEILL NOS V25.40 and Bleeding unrelated to menstrual cycle 626.6 [facility] Apr, [place] [id number] [facility] February, [place] [id number] [facility] Jan, ROUT POSTPART FOLLOW -UP [facility], V24.2 ; FAMILY PLANNING [place] [id number] V25.09 and DELIV NOS-UNSP 669.70 [facility] Dec, DELIV NOS- UNSP OBGYN [facility], 669.70 [place] [id number] [facility] Dec, [place], [place] [id number] [facility] Dec, OBG[place] [id number] [facility] Dec, SCREENING NOS OBGYN [facility], V28.9 [place] [id number] [facility] Nov, SCREENING OBGYN [facility], UNSPEC. V28.9 [place] [id number] [facility] Nov, SCREENING OBGYN [facility], UNSPEC. V28.9 [place] [id number] [facility] Oct, SCREENING OBGYN [facility], UNSPEC. V28.9 [place] [id number] [facility] Oct, SCREENING OBGYN [facility], UNSPEC. V28.9 and Ovarian [place] [id number] cyst NOS 620.2 [facility] Oct, Uterine size-date OBGYN [facility], discrepancy-antepartum [place] [id number] 646.83 [facility] Oct, OBG[place] [id number] [facility] Oct, [place] [id number] [facility] Sep, Urinary frequency 788.41 [place]YN [place], [place] [id number] [facility] Sep, SCREENING OBGYN [facility], UNSPEC. V28.9 [place] [id number] [facility] Aug, SCREENING OBGYN [facility], UNSPEC. V28.9 [place] [id number] [facility] Aug, US-SCREEN ANOMALIES V28.3 [place]YN [place], [place] [id number] [facility] Jul, SCREENING OBGYN [facility], UNSPEC. V28.9 [place] [id number] [facility] Jun, SCREENING OBGYN [facility], UNSPEC. V28.9 [place] [id number] [facility] May, SCREENING OBGYN [facility], UNSPEC. V28.9 [place] [id number] [facility] May, OBG[place], [place] [id number] [facility] May, [place] [id number] [facility] Apr, Suppression menstruation OBN [facility], 626.8 [place] [id number] IMMUNIZATIONS No Known Immunizations SOCIAL HISTORY Never Assessed REASON FOR REFERRAL FUNCTIONAL STATUS PLAN OF CARE Activity Details Follow Up as scheduled Reason: VITAL SIGNS MEDICATIONS Medication Instructions Dosage Frequency Start End Date Duration Status Date calcium 500 mg orally as needed Active Ibuprofen 800 mg Oral tid prn 1 tab Active lysine 1000 mg orally once a 1 tab(s) 24h Active day Fish Oil 1000 mg orally once a 1 cap(s) 24h Active day misoprostol 200 orally once with 1 tab(s) Sep, Active mcg dinner night 2018 before appt, once just before bed, once with breakfast morning of appt Vitamin B12 1000 orally once a 1 tab(s) 24h Active mcg day Vitamin D3 1000 orally once a 2 tab(s) 24h Active intl units day multivitamin orally once a 1 cap(s) 24h Active Multiple Vitamins day valacyclovir 500 orally once a 1 tab(s) 24h Active mg day PROCEDURES No Known procedures RESULTS No Results REASON FOR VISIT hystero Insurance Providers [facility] Patient Patient Patient Patient Patient Subscriber Subscriber Subscriber Group Insurance Plan Plan Plan Plan ID Relationship Address Phone Name Date of ID Name Date of No Type Insurance Insurance Insurance Coverage to Subscriber Address Phone Name Dates Blue [employer] [phone] Blue Cross self Terri 1985 [id number] Blue [id number] [address] [place] [address] Blue Cross [phone] Blue Cross self Terri 1985 [id number] [phone] [id number] [address] [place] [address] [employer] [phone] [employer] self Terri 1985 [id number] Blue [id number] [address] Cross/Blue [place] Cross/Blue n [facility] [address] [facility] MEDICAL (GENERAL) HISTORY Type Description Date Medical History acid reflux Medical History cold sores Medical History Migraines with Aura Medical History Arcuate Uterus Medical History kidney isssues proteinuria Medical History frequent UTI'S Medical History lactose intolerant Medical History IBS Medical History Endometrial polyp Surgical History [place] Teeth removed 2003 Surgical History 12/10/2009 Surgical History hysterosocpy D&C polypectomy 11-09-2010 Surgical History ESSURE 01/16/13, 03/13/13 Surgical History vein surgery 03/13/13 Surgical History rotator cuff surgery 2019 Hospitalization History stung by a bee- allergic Hospitalization History see above
[2019-12-04 17:04] VITALS: BP 106/72
--- NOTE | 2019-12-04 17:33 | UC ---
Throat Pain/Nasal Jerson HPI - HPI Summary HPI Summary: Pt presents with c/o sudden onset of st, fatigue, fever, and chills X 2 days Pt' s daughter tested positive for strep yesterday. - History of Current Complaint Chief Complaint: UCGeneralIllness Stated Complaint: SORE THROAT Time Seen by Provider: 12/04/19 17:06 Hx Obtained From: Patient Hx Last Menstrual Period: 11/14/19 ?: No Onset/Duration: Sudden Onset, Lasting Days, Still Present Severity: Mild Pain Intensity: 3 Cough: None Associated Signs & Symptoms: Positive: Fever - Epiglottits Risk Factors Epiglottis Risk Factors: Sudden Onset - Allergies/Home Medications Allergies/Adverse Reactions: Allergies Allergy/AdvReac Type Severity Reaction Status Date / Time bee venom protein (honey bee) Allergy Hives/Diff. Verified 12/04/19 17:05 Breathing/I tching lactose Allergy GI Upset Verified 12/04/19 17:05 Penicillins Allergy Hives Verified 12/04/19 17:05 blackberry Allergy Hives Uncoded 12/04/19 17:05 Home Medications: Home Medications Azithromycin TAB* [Zithromax TAB (Z-MARCUS) 250 mg #6 tabs] 2 tab PO .TODAY, THEN 1 DAILY #1 marcus 12/04/19 [Rx] ValACYclovir (*) [Valtrex 500 mg (*)] 500 mg PO DAILY 12/04/19 [History Confirmed 12/04/19] PMH/Surg Hx/FS Hx/Imm Hx Previously Healthy: Yes - Surgical History Surgical History: Yes Surgery Procedure, Year, and Place: 2009; 01/20/19 Left rotator cuff with nerve damage. Veins removed from legs bilaterally. Essure permanant control procedure 2012. spinal nerve block 01/2017 - Family History Known Family History: Positive: None, Cardiac Disease Negative: Hypertension, Diabetes - Social History Occupation: Employed Full-time Lives: With Family Alcohol Use: Occasionally Substance Use Type: None Smoking Status (MU): Former Smoker Type: Cigarettes Length of Time of Smoking/Using Tobacco: 2 Years Have You Smoked in the Last Year: No When Did the Patient Quit Smoking/Using Tobacco: 2004 - Immunization History Most Recent Influenza Vaccination: NONE Most Recent Tetanus Shot: UTD Most Recent Pneumonia Vaccination: N/A Vaccination Up to Date: Yes Review of Systems All Other Systems Reviewed And Are Negative: Yes Constitutional: Positive: Fever, Chills Skin: Positive: Negative Eyes: Positive: Negative ENT: Positive: Sore Throat Respiratory: Positive: Negative Cardiovascular: Positive: Negative Gastrointestinal: Positive: Negative Genitourinary: Positive: Negative Motor: Positive: Negative Neurovascular: Positive: Negative Musculoskeletal: Positive: Myalgia Neurological/Mental Status: Positive: Negative Psychological: Positive: Negative Is Patient Immunocompromised?: No Physical Exam Triage Information Reviewed: Yes Appearance: Ill-Appearing Vital Signs: Initial Vital Signs Temp 98.2 F 12/04/19 16:59 Pulse 62 12/04/19 16:59 Resp 14 12/04/19 16:59 BP 106/72 12/04/19 16:59 Pulse Ox 99 12/04/19 16:59 Vital Signs Reviewed: Yes Eye Exam: Normal ENT: Positive: Pharyngeal erythema, Tonsillar swelling Dental Exam: Normal Neck: Positive: Enlarged Nodes @ Respiratory Exam: Normal Cardiovascular Exam: Normal Musculoskeletal Exam: Normal Neurological Exam: Normal Psychological Exam: Normal Skin Exam: Normal Throat Pain/Nasal Course/Dx - Differential Dx/Diagnosis Differential Diagnosis/HQI/PQRI: Pharyngitis, Tonsillitis Provider Diagnosis: Tonsillitis Discharge ED - Sign-Out/Discharge Documenting (check all that apply): Patient Departure All imaging exams completed and their final reports reviewed: No Studies - Discharge Plan Condition: Stable Disposition: HOME Prescriptions: Azithromycin TAB* [Zithromax TAB (Z-MARCUS) 250 mg #6 tabs] 2 tab PO .TODAY, THEN 1 DAILY #1 marcus Patient Education Materials: Tonsillitis (ED) Referrals: Cheo Linn DO [Primary Care Provider] - If Needed - Billing Disposition and Condition Condition: STABLE Disposition: Home - Attestation Statements Provider Attestation: This patient was not seen by me. I was available for consult. Chart reviewed. BRYAN
== END 2019-12-04 17:40 | disposition home or self-care (01) ==
LOC: UCCORT 16:11
DX: J03.90 Acute tonsillitis, unspecified (principal); Z87.891 Personal history of nicotine dependence; Z91.030 Bee allergy status; Z91.011 Allergy to milk products; Z88.0 Allergy status to penicillin; Z91.018 Allergy to other foods
CPT/HCPCS: 87651; 99212; G0463